=== PATIENT | female | born 1950 | race Caucasian/White ===

== ENCOUNTER → 2017-01-17 | Outpatient (REF) | payer MEDICARE, MEDICAID, OTHER ==
[~2017-01-17] MED LIST: ALBU17IN INH; AMIT24CA7 PO; AMIT25TA PO; ASPI81TA85 PO; CAPT1TAB19 PO; CERACRE TOP; CICL0.776 TOP; CRES10TA32 PO; DOCU100C16 PO; DULO30CA PO; ELIQ2.5T PO; ESOM1CAP5 PO; FISH1000 PO; FLUT11IN INH; FOLI1TAB4 PO; FOLITAB5 PO; JANU100T PO; LANO250T15 PO; LANTINJ4 SC; LASI20TA PO; LEVO25TA5 PO; MELO15TA4 PO; METF10004 PO; MILKSUS PO; MONT10TA2 PO; NIZO2SHA EX; NORCOTAB PO; NYST1POW9 TOP; POTA10SO11 PO; ROPI1TAB PO; SENO8.6T5 PO; TOPR50TA PO; TYLE325T5 PO; VITA-121 PO
== END ==
LOC: M LAB REF 13:10
PROVIDERS: ATTEND Physician Assistant Medical
DX: I25.10 Atherosclerotic heart disease of native coronary artery without angina pectoris (principal); I11.0 Hypertensive heart disease with heart failure; I50.9 Heart failure, unspecified

== ENCOUNTER → 2017-05-08 | Outpatient (REF) | payer MEDICARE, MEDICAID, OTHER ==
[2017-05-08 10:05] LABS: HEMATOCRIT 32.6 % (36.0-47.0); HEMOGLOBIN 10.7 g/dl (12.0-16.0); MEAN CORPUSCULAR HEMOGLOBIN 31.1 pg (27.0-33.0); MEAN CORPUSCULAR HGB CONC 32.8 g/dl (32.0-36.5); MEAN CORPUSCULAR VOLUME 94.8 fl (80.0-96.0); PLATELET COUNT, AUTOMATED 242 10^3/uL (150-450); RED BLOOD COUNT 3.44 10^6/uL (4.00-5.40); RED CELL DISTRIBUTION WIDTH 14.3 % (11.5-14.5); WHITE BLOOD COUNT 8.4 10^3/uL (4.0-10.0)
[2017-05-08 10:32] LABS: BASO % 0.1 % (0.0-1.0); EOS # 0.1 10^3/uL (0.0-0.50); EOS % 0.7 % (0.0-3.0); IMMATURE GRANULOCYTE % 0.5 % (0-3.0); LYMPH # 1.4 10^3/uL (1.5-4.5); LYMPH % 16.4 % (24.0-44.0); MONO # 0.6 10^3/uL (0.0-0.8); MONO % 6.8 % (0.0-5.0); NEUTROPHILS # 6.3 10^3/uL (1.8-7.7); NEUTROPHILS % 75.5 % (36.0-66.0)
[2017-05-08 10:35] LABS: MALB URINE SIEMENS 30.4 MG/L
[2017-05-08 10:41] LABS: ALBUMIN 3.1 GM/DL (3.2-5.2); ALBUMIN/GLOBULIN RATIO 0.79 (1.00-1.93); ALKALINE PHOSPHATASE 136 U/L (45-117); ALT/SGPT 31 U/L (12-78); ANION GAP 7 MEQ/L (8-16); AST/SGOT 23 U/L (7-37); BILIRUBIN,TOTAL 0.3 MG/DL (0.2-1.0); BLOOD UREA NITROGEN 13 MG/DL (7-18); CALCIUM LEVEL 8.7 MG/DL (8.8-10.2); CARBON DIOXIDE LEVEL 27 MEQ/L (21-32); CHLORIDE LEVEL 106 MEQ/L (98-107); CHOLESTEROL LEVEL 170 MG/DL (<200); CHOLESTEROL RISK RATIO 4.722 (<5); GLOMERULAR FILTRATION RATE > 60.0 (>45); GLUCOSE, FASTING 209 MG/DL (70-100); HDL CHOLESTEROL 36 MG/DL (>40); LDL CHOLESTEROL 94.4 MG/DL (<100); NON-HDL-C 134 MG/DL; POTASSIUM SERUM 3.9 MEQ/L (3.5-5.1); SODIUM LEVEL 140 MEQ/L (136-145); TRIGLYCERIDES LEVEL 198 MG/DL (<150)
== END ==
LOC: SKLABADC 09:00
DX: I10 Essential (primary) hypertension (principal); E03.9 Hypothyroidism, unspecified
CPT/HCPCS: 84443

== ENCOUNTER → 2017-06-05 | Outpatient (REF) | payer MEDICARE, MEDICAID, OTHER ==
[2017-06-05 14:00] LABS: APPEARANCE, URINE CLOUDY (CLEAR); BACTERIA, URINE AUTO 3+ (NEGATIVE); BILIRUBIN, URINE AUTO NEGATIVE (NEGATIVE); BLOOD, URINE BLOOD NEGATIVE (NEGATIVE); COLOR, URINE AMBER (YELLOW); GLUCOSE, URINE (UA) AUTO NEGATIVE (NEGATIVE); KETONE, URINE AUTO TRACE mg/dL (NEGATIVE); LEUKOCYTE ESTERASE, URINE AUTO 3+ (NEGATIVE); MUCUS, URINE SMALL (NEGATIVE); NITRITE, URINE AUTO NEGATIVE (NEGATIVE); PROTEIN, URINE AUTO NEGATIVE (NEGATIVE); RBC, URINE AUTO 0 /HPF (0-3); SPECIFIC GRAVITY URINE AUTO 1.023 (1.002-1.035); SQUAMOUS EPITHELIAL CELL UR AU 2 /HPF (0-6); WBC, URINE AUTO 147 /HPF (0-3)
== END ==
LOC: SKLABADC 13:06
DX: C57.8 Malignant neoplasm of overlapping sites of female genital organs (principal); Z79.899 Other long term (current) drug therapy
CPT/HCPCS: 81001

== ENCOUNTER → 2017-06-10 | Outpatient (REF) | payer MEDICARE, MEDICAID, OTHER ==
[2017-06-10 10:15] LABS: BASO % 0.2 % (0.0-1.0); EOS # 0.1 10^3/uL (0.0-0.50); EOS % 0.7 % (0.0-3.0); HEMATOCRIT 28.1 % (36.0-47.0); HEMOGLOBIN 8.9 g/dl (12.0-15.5); IMMATURE GRANULOCYTE % 0.4 % (0-3.0); LYMPH # 1.3 10^3/uL (1.5-4.5); LYMPH % 16.2 % (24.0-44.0); MEAN CORPUSCULAR HEMOGLOBIN 30.2 pg (27.0-33.0); MEAN CORPUSCULAR HGB CONC 31.7 g/dl (32.0-36.5); MEAN CORPUSCULAR VOLUME 95.3 fl (80.0-96.0); MONO # 0.5 10^3/uL (0.0-0.8); MONO % 6.3 % (0.0-5.0); NEUTROPHILS # 6.2 10^3/uL (1.8-7.7); NEUTROPHILS % 76.2 % (36.0-66.0); PLATELET COUNT, AUTOMATED 275 10^3/uL (150-450); RED BLOOD COUNT 2.95 10^6/uL (4.00-5.40); RED CELL DISTRIBUTION WIDTH 15.2 % (11.5-14.5); WHITE BLOOD COUNT 8.2 10^3/uL (4.0-10.0)
== END ==
LOC: SKLABADC 08:56
DX: C57.8 Malignant neoplasm of overlapping sites of female genital organs (principal)
CPT/HCPCS: 36415

== ENCOUNTER → 2017-06-20 | Outpatient (REF) | payer MEDICARE, MEDICAID, OTHER ==
[2017-06-20 11:11] LABS: APPEARANCE, URINE CLEAR (CLEAR); BACTERIA, URINE AUTO NEGATIVE (NEGATIVE); BILIRUBIN, URINE AUTO NEGATIVE (NEGATIVE); BLOOD, URINE BLOOD NEGATIVE (NEGATIVE); COLOR, URINE YELLOW (YELLOW); GLUCOSE, URINE (UA) AUTO NEGATIVE (NEGATIVE); KETONE, URINE AUTO NEGATIVE (NEGATIVE); LEUKOCYTE ESTERASE, URINE AUTO NEGATIVE (NEGATIVE); MUCUS, URINE SMALL (NEGATIVE); NITRITE, URINE AUTO NEGATIVE (NEGATIVE); PROTEIN, URINE AUTO NEGATIVE (NEGATIVE); RBC, URINE AUTO 1 /HPF (0-3); SPECIFIC GRAVITY URINE AUTO 1.016 (1.002-1.035); SQUAMOUS EPITHELIAL CELL UR AU 1 /HPF (0-6); UROBILINOGEN, URINE AUTO 0.2 mg/dL (0.0-2.0); WBC, URINE AUTO 0 /HPF (0-3)
== END ==
LOC: SKLABADC 10:34
DX: C57.8 Malignant neoplasm of overlapping sites of female genital organs (principal)
CPT/HCPCS: 81001

== ENCOUNTER → 2017-06-24 | Outpatient (REF) | payer MEDICARE, MEDICAID, OTHER ==
[2017-06-24 10:36] LABS: BASO % 0.2 % (0.0-1.0); EOS # 0.1 10^3/uL (0.0-0.50); EOS % 1.3 % (0.0-3.0); HEMATOCRIT 29.9 % (36.0-47.0); HEMOGLOBIN 9.3 g/dl (12.0-15.5); IMMATURE GRANULOCYTE % 0.4 % (0-3.0); LYMPH # 2.6 10^3/uL (1.5-4.5); LYMPH % 27.6 % (24.0-44.0); MEAN CORPUSCULAR HGB CONC 31.1 g/dl (32.0-36.5); MEAN CORPUSCULAR VOLUME 93.1 fl (80.0-96.0); MONO # 0.7 10^3/uL (0.0-0.8); MONO % 7.5 % (0.0-5.0); NEUTROPHILS # 5.9 10^3/uL (1.8-7.7); PLATELET COUNT, AUTOMATED 345 10^3/uL (150-450); RED BLOOD COUNT 3.21 10^6/uL (4.00-5.40); RED CELL DISTRIBUTION WIDTH 15.2 % (11.5-14.5); WHITE BLOOD COUNT 9.3 10^3/uL (4.0-10.0)
== END ==
LOC: SKLABADC 08:12
DX: C57.8 Malignant neoplasm of overlapping sites of female genital organs (principal)
CPT/HCPCS: 85025

== ENCOUNTER → 2017-07-01 | Outpatient (REF) | payer MEDICARE, MEDICAID, OTHER ==
[2017-07-01 10:24] LABS: BASO % 0.2 % (0.0-1.0); EOS # 0.1 10^3/uL (0.0-0.50); HEMATOCRIT 30.6 % (36.0-47.0); HEMOGLOBIN 9.8 g/dl (12.0-15.5); IMMATURE GRANULOCYTE % 0.4 % (0-3.0); LYMPH # 1.6 10^3/uL (1.5-4.5); LYMPH % 16.9 % (24.0-44.0); MEAN CORPUSCULAR HEMOGLOBIN 28.9 pg (27.0-33.0); MEAN CORPUSCULAR VOLUME 90.3 fl (80.0-96.0); MONO # 0.7 10^3/uL (0.0-0.8); MONO % 7.6 % (0.0-5.0); NEUTROPHILS # 6.8 10^3/uL (1.8-7.7); NEUTROPHILS % 73.9 % (36.0-66.0); PLATELET COUNT, AUTOMATED 306 10^3/uL (150-450); RED BLOOD COUNT 3.39 10^6/uL (4.00-5.40); RED CELL DISTRIBUTION WIDTH 15.5 % (11.5-14.5); WHITE BLOOD COUNT 9.2 10^3/uL (4.0-10.0)
== END ==
LOC: SKLABADC 08:52
DX: C57.8 Malignant neoplasm of overlapping sites of female genital organs (principal)
CPT/HCPCS: 85025

== ENCOUNTER → 2017-07-08 | Outpatient (REF) | payer MEDICARE, MEDICAID, OTHER ==
[2017-07-08 11:26] LABS: HEMATOCRIT 30.7 % (36.0-47.0); HEMOGLOBIN 9.8 g/dl (12.0-15.5); MEAN CORPUSCULAR HEMOGLOBIN 28.3 pg (27.0-33.0); MEAN CORPUSCULAR HGB CONC 31.9 g/dl (32.0-36.5); MEAN CORPUSCULAR VOLUME 88.7 fl (80.0-96.0); PLATELET COUNT, AUTOMATED 281 10^3/uL (150-450); RED BLOOD COUNT 3.46 10^6/uL (4.00-5.40); RED CELL DISTRIBUTION WIDTH 15.8 % (11.5-14.5); WHITE BLOOD COUNT 9.8 10^3/uL (4.0-10.0)
[2017-07-08 12:33] LABS: ALBUMIN 3.2 GM/DL (3.2-5.2); ALBUMIN/GLOBULIN RATIO 0.94 (1.00-1.93); ALKALINE PHOSPHATASE 164 U/L (45-117); ALT/SGPT 27 U/L (12-78); ANION GAP 7 MEQ/L (8-16); AST/SGOT 14 U/L (7-37); BILIRUBIN,TOTAL 0.3 MG/DL (0.2-1.0); BLOOD UREA NITROGEN 15 MG/DL (7-18); CALCIUM LEVEL 8.8 MG/DL (8.8-10.2); CARBON DIOXIDE LEVEL 27 MEQ/L (21-32); CHLORIDE LEVEL 106 MEQ/L (98-107); CHOLESTEROL LEVEL 131 MG/DL (<200); CHOLESTEROL RISK RATIO 4.517 (<5); CPK CREATINE PHOSPHOKINASE 39 U/L (26-192); CREATININE FOR GFR 0.63 MG/DL (0.55-1.30); DIGOXIN LEVEL 0.2 NG/ML (0.5-2.0); GLOMERULAR FILTRATION RATE > 60.0 (>45); GLUCOSE, FASTING 201 MG/DL (70-100); HDL CHOLESTEROL 29 MG/DL (>40); LDL CHOLESTEROL 73.8 MG/DL (<100); NON-HDL-C 102 MG/DL; POTASSIUM SERUM 4.7 MEQ/L (3.5-5.1); SODIUM LEVEL 140 MEQ/L (136-145); TOTAL PROTEIN 6.6 GM/DL (6.4-8.2); TRIGLYCERIDES LEVEL 141 MG/DL (<150)
== END ==
LOC: SKLABADC 10:52
DX: I50.22 Chronic systolic (congestive) heart failure (principal); I48.0 Paroxysmal atrial fibrillation; R06.02 Shortness of breath; E66.01 Morbid (severe) obesity due to excess calories; I12.0 Hypertensive chronic kidney disease with stage 5 chronic kidney disease or end stage renal disease; E78.5 Hyperlipidemia, unspecified
CPT/HCPCS: 82550

== ENCOUNTER → 2017-07-22 | Outpatient (REF) | payer MEDICARE, MEDICAID, OTHER ==
[2017-07-22 10:30] LABS: BASO % 0.2 % (0.0-1.0); EOS # 0.1 10^3/uL (0.0-0.50); EOS % 1.1 % (0.0-3.0); HEMATOCRIT 30.6 % (36.0-47.0); HEMOGLOBIN 9.4 g/dl (12.0-15.5); IMMATURE GRANULOCYTE # 0.1 10^3/uL (0-0); IMMATURE GRANULOCYTE % 0.8 % (0-3.0); LYMPH # 1.4 10^3/uL (1.5-4.5); LYMPH % 13.7 % (24.0-44.0); MEAN CORPUSCULAR HEMOGLOBIN 27.2 pg (27.0-33.0); MEAN CORPUSCULAR HGB CONC 30.7 g/dl (32.0-36.5); MEAN CORPUSCULAR VOLUME 88.7 fl (80.0-96.0); MONO # 0.6 10^3/uL (0.0-0.8); MONO % 5.6 % (0.0-5.0); NEUTROPHILS # 7.9 10^3/uL (1.8-7.7); NEUTROPHILS % 78.6 % (36.0-66.0); PLATELET COUNT, AUTOMATED 311 10^3/uL (150-450); RED BLOOD COUNT 3.45 10^6/uL (4.00-5.40); RED CELL DISTRIBUTION WIDTH 15.8 % (11.5-14.5)
[2017-07-22 10:53] LABS: ALBUMIN 2.8 GM/DL (3.2-5.2); ALBUMIN/GLOBULIN RATIO 0.78 (1.00-1.93); ALKALINE PHOSPHATASE 165 U/L (45-117); ALT/SGPT 24 U/L (12-78); ANION GAP 7 MEQ/L (8-16); AST/SGOT 11 U/L (7-37); BILIRUBIN,TOTAL 0.2 MG/DL (0.2-1.0); BLOOD UREA NITROGEN 11 MG/DL (7-18); CALCIUM LEVEL 8.8 MG/DL (8.8-10.2); CARBON DIOXIDE LEVEL 30 MEQ/L (21-32); CHLORIDE LEVEL 103 MEQ/L (98-107); CREATININE FOR GFR 0.56 MG/DL (0.55-1.30); GLOMERULAR FILTRATION RATE > 60.0 (>45); GLUCOSE, FASTING 286 MG/DL (70-100); POTASSIUM SERUM 4.8 MEQ/L (3.5-5.1); SODIUM LEVEL 140 MEQ/L (136-145); TOTAL PROTEIN 6.4 GM/DL (6.4-8.2)
== END ==
LOC: SKLABADC 09:18
DX: D64.9 Anemia, unspecified (principal); I10 Essential (primary) hypertension

== ENCOUNTER → 2017-07-22 | Outpatient (REF) | payer MEDICARE, MEDICAID, OTHER ==
[2017-07-22 10:29] LABS: BASO % 0.1 % (0.0-1.0); EOS # 0.1 10^3/uL (0.0-0.50); EOS % 1.4 % (0.0-3.0); HEMATOCRIT 30.7 % (36.0-47.0); HEMOGLOBIN 9.5 g/dl (12.0-15.5); IMMATURE GRANULOCYTE % 0.6 % (0-3.0); LYMPH # 1.4 10^3/uL (1.5-4.5); LYMPH % 13.6 % (24.0-44.0); MEAN CORPUSCULAR HEMOGLOBIN 27.4 pg (27.0-33.0); MEAN CORPUSCULAR HGB CONC 30.9 g/dl (32.0-36.5); MEAN CORPUSCULAR VOLUME 88.5 fl (80.0-96.0); MONO # 0.5 10^3/uL (0.0-0.8); MONO % 4.9 % (0.0-5.0); NEUTROPHILS # 7.9 10^3/uL (1.8-7.7); NEUTROPHILS % 79.4 % (36.0-66.0); PLATELET COUNT, AUTOMATED 313 10^3/uL (150-450); RED BLOOD COUNT 3.47 10^6/uL (4.00-5.40); RED CELL DISTRIBUTION WIDTH 15.6 % (11.5-14.5)
[2017-07-22 10:55] LABS: FERRITIN 36 NG/ML (8-252); IRON (FE) 24 UG/DL (50-170); PERCENT SATURATION 7.2 % (13.2-45.0); TOTAL IRON BINDING CAPACITY 333 UG/DL (250-450)
== END ==
LOC: SKLABADC 08:52
DX: C57.8 Malignant neoplasm of overlapping sites of female genital organs (principal); D64.9 Anemia, unspecified; I10 Essential (primary) hypertension
CPT/HCPCS: 83550

== ENCOUNTER → 2017-07-29 | Outpatient (REF) | payer MEDICARE, MEDICAID, OTHER ==
[2017-07-29 11:20] LABS: BASO % 0.2 % (0.0-1.0); EOS # 0.1 10^3/uL (0.0-0.50); EOS % 1.2 % (0.0-3.0); HEMOGLOBIN 10.3 g/dl (12.0-15.5); IMMATURE GRANULOCYTE # 0.1 10^3/uL (0-0); IMMATURE GRANULOCYTE % 0.5 % (0-3.0); LYMPH # 1.9 10^3/uL (1.5-4.5); LYMPH % 17.7 % (24.0-44.0); MEAN CORPUSCULAR HGB CONC 31.2 g/dl (32.0-36.5); MEAN CORPUSCULAR VOLUME 86.4 fl (80.0-96.0); MONO # 0.9 10^3/uL (0.0-0.8); MONO % 8.5 % (0.0-5.0); NEUTROPHILS # 7.7 10^3/uL (1.8-7.7); NEUTROPHILS % 71.9 % (36.0-66.0); PLATELET COUNT, AUTOMATED 319 10^3/uL (150-450); RED BLOOD COUNT 3.82 10^6/uL (4.00-5.40); RED CELL DISTRIBUTION WIDTH 15.8 % (11.5-14.5); WHITE BLOOD COUNT 10.6 10^3/uL (4.0-10.0)
[2017-07-29 12:26] LABS: ALBUMIN 3.1 GM/DL (3.2-5.2); ALBUMIN/GLOBULIN RATIO 0.82 (1.00-1.93); ALKALINE PHOSPHATASE 151 U/L (45-117); ALT/SGPT 25 U/L (12-78); ANION GAP 10 MEQ/L (8-16); AST/SGOT 12 U/L (7-37); BILIRUBIN,TOTAL 0.4 MG/DL (0.2-1.0); BLOOD UREA NITROGEN 19 MG/DL (7-18); CALCIUM LEVEL 9.3 MG/DL (8.8-10.2); CARBON DIOXIDE LEVEL 30 MEQ/L (21-32); CHLORIDE LEVEL 101 MEQ/L (98-107); CREATININE FOR GFR 0.83 MG/DL (0.55-1.30); GLOMERULAR FILTRATION RATE > 60.0 (>45); GLUCOSE, FASTING 239 MG/DL (70-100); POTASSIUM SERUM 4.3 MEQ/L (3.5-5.1); SODIUM LEVEL 141 MEQ/L (136-145); TOTAL PROTEIN 6.9 GM/DL (6.4-8.2)
== END ==
LOC: SKLABADC 10:24
DX: D64.9 Anemia, unspecified (principal); I10 Essential (primary) hypertension
CPT/HCPCS: 80053

== ENCOUNTER → 2017-08-12 | Outpatient (REF) | payer MEDICARE, MEDICAID, OTHER ==
[2017-08-12 09:46] LABS: MEAN CORPUSCULAR HEMOGLOBIN 27.7 pg (27.0-33.0); MEAN CORPUSCULAR HGB CONC 31.4 g/dl (32.0-36.5); MEAN CORPUSCULAR VOLUME 88.2 fl (80.0-96.0); PLATELET COUNT, AUTOMATED 292 10^3/uL (150-450); RED BLOOD COUNT 3.97 10^6/uL (4.00-5.40); RED CELL DISTRIBUTION WIDTH 17.6 % (11.5-14.5); WHITE BLOOD COUNT 9.5 10^3/uL (4.0-10.0)
== END ==
LOC: SKLABADC 09:05
DX: D50.0 Iron deficiency anemia secondary to blood loss (chronic) (principal)
CPT/HCPCS: 85027

== ENCOUNTER → 2018-01-26 | Outpatient (REF) | payer MEDICARE, MEDICAID, OTHER ==
[~2018-01-26] MED LIST changes: -FOLI1TAB4 PO; +FOLI1TAB5 PO; +MELO15TA28 PO; -MELO15TA4 PO; +MILK12002 PO; -MILKSUS PO; -TOPR50TA PO; +TOPR50TA23 PO
[2018-01-26 11:46] LABS: BASO % 0.3 % (0.0-1.0); EOS # 0.2 10^3/uL (0.0-0.50); EOS % 1.8 % (0.0-3.0); HEMATOCRIT 40.1 % (36.0-47.0); HEMOGLOBIN 13.1 g/dl (12.0-15.5); LYMPH # 1.5 10^3/uL (1.5-4.5); LYMPH % 16.8 % (24.0-44.0); MEAN CORPUSCULAR HEMOGLOBIN 30.3 pg (27.0-33.0); MEAN CORPUSCULAR HGB CONC 32.7 g/dl (32.0-36.5); MEAN CORPUSCULAR VOLUME 92.6 fl (80.0-96.0); MONO # 0.7 10^3/uL (0.0-0.8); NEUTROPHILS # 6.5 10^3/uL (1.8-7.7); NEUTROPHILS % 72.7 % (36.0-66.0); PLATELET COUNT, AUTOMATED 268 10^3/uL (150-450); RED BLOOD COUNT 4.33 10^6/uL (4.00-5.40); WHITE BLOOD COUNT 8.9 10^3/uL (4.0-10.0)
[2018-01-26 12:17] LABS: ALBUMIN 3.3 GM/DL (3.2-5.2); ALT/SGPT 28 U/L (12-78); BILIRUBIN,TOTAL 0.3 MG/DL (0.2-1.0); BLOOD UREA NITROGEN 23 MG/DL (7-18); CALCIUM LEVEL 8.8 MG/DL (8.8-10.2); CARBON DIOXIDE LEVEL 31 MEQ/L (21-32); CHLORIDE LEVEL 105 MEQ/L (98-107); CHOLESTEROL LEVEL 186 MG/DL (<200); CHOLESTEROL RISK RATIO 5.314 (<5); CREATININE FOR GFR 0.55 MG/DL (0.55-1.30); GLOMERULAR FILTRATION RATE > 60.0 (>45); GLUCOSE, FASTING 135 MG/DL (70-100); HDL CHOLESTEROL 35 MG/DL (>40); LDL CHOLESTEROL 123 MG/DL (<100); NON-HDL-C 151 MG/DL; POTASSIUM SERUM 3.9 MEQ/L (3.5-5.1); SODIUM LEVEL 143 MEQ/L (136-145); TOTAL 25(OH) VITAMIN D 31.7 NG/ML (30.0-100.0); TOTAL PROTEIN 6.9 GM/DL (6.4-8.2); TRIGLYCERIDES LEVEL 141 MG/DL (<150)
[2018-01-26 12:29] LABS: CREATININE, URINE 87.9 MG/DL; MALB URINE SIEMENS 10.9 MG/L; MAU/CREAT RATIO 12.4 MCG/MG (0.0-30.0)
== END ==
LOC: SKLABADC 09:19
PROVIDERS: ATTEND Physician Assistant Medical
DX: E55.9 Vitamin D deficiency, unspecified (principal); I10 Essential (primary) hypertension; E03.9 Hypothyroidism, unspecified; E11.8 Type 2 diabetes mellitus with unspecified complications

== ENCOUNTER → 2018-07-27 | Outpatient (REF) | payer MEDICARE, MEDICAID, OTHER ==
[~2018-07-27] MED LIST changes: +CRES10TA PO; -CRES10TA32 PO; -DULO30CA PO; +DULO30CA9 PO; +FOLI1TAB11 PO; -FOLI1TAB5 PO; +HYDR-3715 PO; -LASI20TA PO; +LASI20TA3 PO; +MILK120011 PO; -MILK12002 PO; -NORCOTAB PO; +TOPR50TA PO; -TOPR50TA23 PO
== END ==
LOC: M LAB REF 19:08
PROVIDERS: ATTEND Physician Assistant
DX: N39.0 Urinary tract infection, site not specified (principal)

== ENCOUNTER → 2018-09-02 | Outpatient (REF) | payer MEDICARE, MEDICAID, OTHER ==
[2018-09-02 11:14] LABS: HEMOGLOBIN 13.8 g/dl (12.0-15.5); MEAN CORPUSCULAR HEMOGLOBIN 29.9 pg (27.0-33.0); MEAN CORPUSCULAR HGB CONC 32.9 g/dl (32.0-36.5); MEAN CORPUSCULAR VOLUME 90.9 fl (80.0-96.0); PLATELET COUNT, AUTOMATED 325 10^3/uL (150-450); RED BLOOD COUNT 4.62 10^6/uL (4.00-5.40)
[2018-09-02 11:45] LABS: ALBUMIN 3.4 GM/DL (3.2-5.2); ALT/SGPT 30 U/L (12-78); BILIRUBIN,TOTAL 0.3 MG/DL (0.2-1.0); BLOOD UREA NITROGEN 15 MG/DL (7-18); CALCIUM LEVEL 9.6 MG/DL (8.8-10.2); CARBON DIOXIDE LEVEL 31 MEQ/L (21-32); CHLORIDE LEVEL 105 MEQ/L (98-107); CREATININE FOR GFR 0.77 MG/DL (0.55-1.30); FERRITIN 138 NG/ML (8-252); GLOMERULAR FILTRATION RATE > 60.0 (>45); GLUCOSE, FASTING 177 MG/DL (70-100); IRON (FE) 43 UG/DL (50-170); PERCENT SATURATION 11.7 % (13.2-45.0); POTASSIUM SERUM 4.4 MEQ/L (3.5-5.1); SODIUM LEVEL 141 MEQ/L (136-145); TOTAL IRON BINDING CAPACITY 366 UG/DL (250-450); TOTAL PROTEIN 7.1 GM/DL (6.4-8.2)
[2018-09-02 11:48] LABS: VITAMIN B12 LEVEL 437 PG/ML (247-911)
== END ==
LOC: SKLABADC 10:29
PROVIDERS: ATTEND Physician Assistant Medical
DX: D64.9 Anemia, unspecified (principal)

== ENCOUNTER 2018-11-01 16:45 | Inpatient (IN) | payer MEDICARE, MEDICAID ==
[~2018-11-01] VITALS: Ht 152.4 cm; Wt 141.8 kg
[2018-11-01] MEDS ORDERED: methylPREDNISolone INJ 125 MG/2 ML VIAL (J2930) IV ONE (17:00)
[2018-11-01] MEDS ORDERED: DIGOXIN 0.125 MG TAB PO ONE (17:00)
[2018-11-01] MEDS ORDERED: FERR32TA PO (17:18)
[2018-11-01] MEDS ORDERED: CHOL100029 PO (17:18)
[2018-11-01] MEDS ORDERED: DIGO0.12 PO (17:18)
[2018-11-01] MEDS ORDERED: LISI-542 PO (17:18)
[2018-11-01] MEDS ORDERED: OMEP40CA2 PO (17:18)
[2018-11-01] MEDS ORDERED: POTA20TA6 PO (17:18)
[2018-11-01] MEDS: IPRATROPIUM 0.5MG/ALBUTEROL 2.5MG INH SOL UD 3ML (DUONEB)(J7620) NEB PRN (17:18)
[2018-11-01] MEDS ORDERED: LASI40TA9 PO (17:18)
[2018-11-01] MEDS ORDERED: CETI10CH PO (17:18)
[2018-11-01] MEDS ORDERED: LANTINJ4 SC ×2 (17:18→20:01)
[2018-11-01] MEDS ORDERED: ALBU83IN NEB (17:18)
[2018-11-01] MEDS ORDERED: TRUL0.5I SC ×2 (17:18)
[2018-11-01] MEDS ORDERED: MARIJUANA PO (17:18)
[2018-11-01] MEDS ORDERED: SPIR-10 PO (17:18)
[2018-11-01] MEDS ORDERED: ACET250T2 PO (17:18)
[2018-11-01] MEDS ORDERED: TOPR50TA PO (17:18)
[2018-11-01] MEDS ORDERED: ATOR80TA59 PO (17:18)
[2018-11-01] MEDS ORDERED: HUMA100I5 SC (17:18)
[2018-11-01] MEDS ORDERED: MAGN400T PO (17:18)
[2018-11-01 17:52] LABS: BASO % 0.2 % (0.0-1.0); EOS # 0.1 10^3/uL (0.0-0.5); EOS % 1.1 % (0.0-3.0); HEMATOCRIT 37.1 % (36.0-47.0); HEMOGLOBIN 11.9 g/dl (12.0-15.5); LYMPH # 1.1 10^3/uL (1.5-5.0); LYMPH % 13.4 % (24.0-44.0); MEAN CORPUSCULAR HEMOGLOBIN 30.4 pg (27.0-33.0); MEAN CORPUSCULAR HGB CONC 32.1 g/dl (32.0-36.5); MEAN CORPUSCULAR VOLUME 94.6 fl (80.0-96.0); MONO # 0.5 10^3/uL (0.0-0.8); MONO % 5.9 % (0.0-5.0); NEUTROPHILS # 6.7 10^3/uL (1.5-8.5); NEUTROPHILS % 79.2 % (36.0-66.0); PLATELET COUNT, AUTOMATED 265 10^3/uL (150-450); RED BLOOD COUNT 3.92 10^6/uL (4.00-5.40); WHITE BLOOD COUNT 8.4 10^3/uL (4.0-10.0)
[2018-11-01 18:06] LABS: INR 1.15; PROTHROMBIN TIME 14.4 SECONDS (11.8-14.0)
[2018-11-01 18:22] LABS: BLOOD UREA NITROGEN 6 MG/DL (7-18); CREATININE FOR GFR 0.51 MG/DL (0.55-1.30); GLUCOSE, FASTING 174 MG/DL (70-100)
[2018-11-01 18:23] LABS: ALBUMIN 2.7 GM/DL (3.2-5.2); ALT/SGPT 44 U/L (12-78); BILIRUBIN,DIRECT 0.1 MG/DL (0.0-0.2); BILIRUBIN,TOTAL 0.5 MG/DL (0.2-1.0); CALCIUM LEVEL 8.7 MG/DL (8.8-10.2); CARBON DIOXIDE LEVEL 29 MEQ/L (21-32); CHLORIDE LEVEL 106 MEQ/L (98-107); CPK CREATINE PHOSPHOKINASE 34 U/L (26-192); DIGOXIN LEVEL 0.2 NG/ML (0.5-2.0); GLOMERULAR FILTRATION RATE > 60.0 (>45); MB/CK RELATIVE INDEX 2.94 (< OR =4); NT-PRO BNP 743 PG/ML (<125); POTASSIUM SERUM 4.3 MEQ/L (3.5-5.1); SODIUM LEVEL 142 MEQ/L (136-145); TOTAL PROTEIN 6.2 GM/DL (6.4-8.2); TROPONIN I 0.02 NG/ML (< 0.10)
[2018-11-01] MEDS ORDERED: FUROSEMIDE 100 MG/10 ML VIAL (J1940) IV ONE (18:30)
[2018-11-01] MEDS ORDERED: cefTRIAXone SOD 2 GM in D5W MINI-BAG PLUS 50 ML IV ONE (18:30)
--- NOTE | 2018-11-01 18:39 | ECGEPIP ---
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
[2018-11-01] MEDS ORDERED: MAALOX 30 ML SUSP *UDC PO PRN (19:15)
[2018-11-01] MEDS ORDERED: D31000CA4 PO (19:49)
[2018-11-01] MEDS ORDERED: ALL10TAB29 PO (19:49)
[2018-11-01] MEDS ORDERED: ACET-897 PO (19:49)
[2018-11-01] MEDS: FLUTICASONE HFA 110 MCG 12 GM INHALER (FLOVENT) INH SCH (20:00)
[2018-11-01] MEDS ORDERED: FISH1000 PO (20:01)
[2018-11-01] MEDS ORDERED: TORS10TA3 PO (20:01)
[2018-11-01] MEDS ORDERED: FLUT11IN INH (20:01)
[2018-11-01] MEDS ORDERED: LEVO50TA5 PO (20:01)
[2018-11-01] MEDS ORDERED: NYST1POW9 TOP (20:03)
[2018-11-01] MEDS ORDERED: IPRA0.00 INH (20:03)
[2018-11-01] MEDS ORDERED: ISOVUE-370 76% 100ML VIAL (Q9967) As Ordered ONE (20:08)
--- NOTE | 2018-11-01 20:13 | HPEPDOC ---
[facility] Medical History & Physical Date of Admission Nov 01, 2018 Date of Service: Nov 01, 2018 History and Physical CHIEF COMPLAINT: [SOB ] HISTORY OF PRESENT ILLNESS: This is a 67 yo female with pmhx of afib, chf unknown ef , copd and the others below who presented to the ed wit sob for 1 week. Patient also noted that her right leg has been more swollen than the left with mild pain, but no erythema. She said today she was wheezing and has been using oxygen more frequently than before. She uses 2 L of nc at home at night. She stated that she has been having chills, but no fever, no chest pain or palpitations. She denied nausea vomiting or diarrhea. She denied sick contact or recent travel. ] PAST MEDICAL HISTORY: 1. [copd on home o2 ]. 2. [htn ]. 3. [hld ]. 4. hypothyroidism 5. afib on eliquis 6. chf unknown ef 7. dm2 8., hld 9. hx of endometrial cancer in remission for 2 yrs1 10. OA PAST SURGICAL HISTORY: 1. [hysterectomy - due to endometrial ca ]. 2. [stomach stapling ]. 3. [abd hernia repair ]. 4. d and c 5. 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 HOME MEDICATIONS: Please see below. LABORATORY DATA: See below. IMAGING: MICROBIOLOGY: Please see below. ROS - all 10 point review of system is negative except for whats listed in HPI Physical exam Gen: NAD, morbidly obese HEENT: normocephalic, atraumatic, no discharge from ears or nose, no oropharyngeal erythema or exudate, neck is supple, no lymphadenopathy, trachea midline CVS: RRR, normal S1n S2, no murmur, rubs, or gallops, + right leg edema, no jvd Resp: poor air movement, no rhonchi, wheezes or crackles Abd : soft, some tenderness over distended areas of abd hernia, normal bowel sounds, no rebound tenderness or guarding MSK: no swelling, full range of motion, strength 5/5 Neuro: AOAx3, no confusion, no focal deficit Psych: normal mood and affect, good judgment ASSESSMENT and plan Copd exacerbation - possible right lower lobe infiltrate c/w levaquin oxygen as needed f/u sputum gs and cx f/u resp panel duoneb q4h prn c/w po steroids 40mg q12h CHF f/u echo lasix - tomorrow , after contrast study and mild hydration DM2 c/w insulin hold metformin f/u hba1c htn//hld c/w home meds fu lipid panel right leg swelling f/u venous doppler afib c/u anticoag - eliquis c/w bb dvt ppx - on eliquis full code, from home, no svc Vital Signs Vital Signs Date Time Temp Pulse Resp B/P (MAP) Pulse Ox O2 Delivery O2 Flow Rate FiO2 11/01/18 17:49 134 11/01/18 16:56 97.7 24 116/79 (91) 95 Nasal Cannula 6.0 Laboratory Data Labs 24H Laboratory Tests 2 11/01/18 17:40: Immature Granulocyte % (Auto) 0.2, White Blood Count 8.4, Red Blood Count 3.92L, Hemoglobin 11.9L, Hematocrit 37.1, Mean Corpuscular Volume 94.6, Mean Corpuscular Hemoglobin 30.4, Mean Corpuscular Hemoglobin Concent 32.1, Red Cell Distribution Width 14.3, Platelet Count 265, Neutrophils (%) (Auto) 79.2H, Lymphocytes (%) (Auto) 13.4L, Monocytes (%) (Auto) 5.9H, Eosinophils (%) (Auto) 1.1, Basophils (%) (Auto) 0.2, Neutrophils # (Auto) 6.7, Lymphocytes # (Auto) 1.1L, Monocytes # (Auto) 0.5, Eosinophils # (Auto) 0.1, Basophils # (Auto) 0.0, Nucleated Red Blood Cells % (auto) 0.0, Prothrombin Time 14.4H, Prothromb Time International Ratio 1.15, Anion Gap 7L, Glomerular Filtration Rate > 60.0, Lactic Acid Level 2.7*H, Calcium Level 8.7L, Aspartate Amino Transf (AST/SGOT) 24, Alanine Aminotransferase (ALT/SGPT) 44, Alkaline Phosphatase 167H, Total Bilirubin 0.5, Direct Bilirubin 0.1, Total Creatine Kinase 34, Creatine Kinase MB 1.0, Creatine Kinase MB Relative Index 2.94, Troponin I 0.02, XW-Lnv-[id number]-Type Natriuretic Peptide 743H, Total Protein 6.2L, Albumin 2.7L, Albumin/Globulin Ratio 0.77L, Thyroid Stimulating Hormone (TSH) 1.020, Digoxin Level 0.2L 11/01/18 17:46: POC pH (Misc Panel) 7.367, POC Base Excess (Misc Panel) 3.0, POC Saturated Percent O2 (Misc) 95, POC pO2 (Misc Panel) 79.0L, POC pCO2 (Misc Panel) 49.5H, POC HCO3 (Misc Panel) 28.4H, POC Total CO2 (Misc Panel) 30.0H CBC/BMP Laboratory Tests 11/01/18 17:40 Red Blood Count 3.92 L, Mean Corpuscular Volume 94.6, Mean Corpuscular Hemoglobin 30.4, Mean Corpuscular Hemoglobin Concent 32.1, Red Cell Distribution Width 14.3, Neutrophils (%) (Auto) 79.2 H, Lymphocytes (%) (Auto) 13.4 L, Monocytes (%) (Auto) 5.9 H, Eosinophils (%) (Auto) 1.1, Basophils (%) (Auto) 0. 2, Neutrophils # (Auto) 6.7, Lymphocytes # (Auto) 1.1 L, Monocytes # (Auto) 0.5, Eosinophils # (Auto) 0.1, Basophils # (Auto) 0.0 Microbiology Microbiology 11/01/18 Blood Culture, Received Pending 11/01/18 Blood Culture, Received Pending 11/01/18 Respiratory Virus Panel (PCR) (QUINN) - Final, Complete Home Medications Scheduled Acetazolamide (Acetazolamide) 250 Mg Tablet, 1 TAB PO BID Amitriptyline HCl (Amitriptyline HCl) 25 Mg Tab, 25 MG PO DAILY Apixaban (Eliquis) 2.5 Mg Tab, 2.5 MG PO BID Aspirin (Aspir 81) 81 Mg Tab, 81 MG PO DAILY Atorvastatin Calcium (Atorvastatin Calcium) 80 Mg Tablet, 1 TAB PO DAILY Captopril (Captopril) 3.125 Mg Quartertab, 3.125 MG PO TID Cetirizine HCl (Cetirizine HCl) 10 Mg Tab.chew, 1 TAB PO DAILY for allergy symptoms Cholecalciferol (Vitamin D-3) 1,000 Unit Tab, 1,000 UNIT PO DAILY Digoxin (Digoxin) 125 Mcg Tablet, 1 TAB PO DAILY Docusate Sodium (Docusate Sodium) 100 Mg Cap, 100 MG PO BID Duloxetine Hcl (Duloxetine HCl) 30 Mg Cap, 60 MG PO BID Esomeprazole Magnesium (Esomeprazole Magnesium) 40 Mg Cap, 40 MG PO BID Ferrous Gluconate (Ferrous Gluconate) 324 Mg Tablet, 1 TAB PO BID Fluticasone Propionate (Flovent Hfa 110 MCG) 120 Puff/12 Gm Aero, 2 PUFF INH BID Folic Acid (Folic Acid) 1 Mg Tab, 1 MG PO BID Furosemide (Lasix) 40 Mg Tablet, 40 MG PO BID Insulin Glargine,Hum.rec.anlog (Lantus Solostar) 100 Unit/1 Ml Insuln.pen, 56 UNIT SC BID Levothyroxine Sodium (Levothyroxine Sodium) 25 Mcg Tab, 50 MCG PO DAILY Lisinopril (Lisinopril) 5 Mg Tablet, 1 TAB PO DAILY Magnesium Oxide (Magnesium Oxide) 400 Mg Tablet, 1 TAB PO BID for constipation Metformin HCl (Metformin HCl) 1,000 Mg Tab, 1,000 MG PO BID Metoprolol Succinate (Toprol Xl) 50 Mg Tab.er.24h, 1 TAB PO DAILY Montelukast Sodium (Montelukast Sodium) 10 Mg Tab, 10 MG PO DAILY [place]-3 Fatty Acids/Fish Oil (Fish Oil 1,000 mg Capsule) 1,000 Mg Cap, 1,000 MG PO BID Omeprazole (Omeprazole) 40 Mg Capsule.dr, 1 CAP PO DAILY Potassium Chloride (Potassium Chloride) 20 Meq Tab.er.prt, 1 TAB PO DAILY Ropinirole HCl (Ropinirole HCl) 1 Mg Tab, 1 MG PO BID Spironolactone (Spironolactone) 25 Mg Tablet, 0.5 TAB PO DAILY Vitamin D (Vitamin D3) 1,000 Unit Tablet, 1 TAB PO DAILY [Marijuana] , 2 DROP PO TID [Marijuana] , 1 TAB PO TID Scheduled PRN Acetaminophen (Tylenol) 325 Mg Tab, 650 MG PO Q4HP PRN for MILD PAIN OR FEVER Albuterol Sulf (Albuterol Sulfate) 2.5 Mg/3 Ml Vial.neb, 1 VIAL NEB Q4HP PRN for wheezing Albuterol Sulfate (Ventolin Hfa) 200 Puff/8 Gm Aers, 2 PUFF INH Q4HP PRN for SHORTNESS OF BREATH Ciclopirox (Ciclopirox) 0.77 % Gel, 0.77 % TOP DAILYPRN PRN for DRY SKIN Miscellaneous Medications Dulaglutide (Trulicity) 1.5 Mg/0.5 Ml Pen.injctr, 1.5 MG SC Insulin Lispro (Humalog Kwikpen U-100) 100 Unit/1 Ml Insuln.pen, 100 UNITS SC Allergies Coded Allergies: TAPE (Verified Allergy, Intermediate, rash, 11/01/18) adhesives A-FIB/CHADSVASC A-FIB History Current/History of A-Fib/PAF?: Yes Current PO Anticoag Therapy: Yes Age/Risk Factor Scoring CHADSVASC: CHADSVASC Response (Comments) Value Age Risk Factor Age 65-74 years old 1 Gender Risk Factor Female 1 Hx of CHF Yes 1 Hx of HTN Yes 1 Hx of Stroke/TIA/or VTE No 0 Hx of Diabetes Yes 1 Hx of Vascular Disease No 0 Total 5 Treatment Treatment ordered: Apixaban GREGORY KUMAR MD Nov 01, 2018 20:13
[2018-11-01] MEDS ORDERED: GLUCAGON FOR INJ 1 MG VIAL (J1610) SC PRN (20:30)
[2018-11-01] MEDS ORDERED: DEXTROSE 50% 50 ML SYRINGE IV PRN (20:30)
[2018-11-01] MEDS ORDERED: GLUCOSE 4 GM CHEW TABLET PO PRN (20:30)
--- NOTE | 2018-11-01 20:37 | REPVR ---
PROCEDURE INFORMATION: Exam: CT Chest With Contrast Exam date and time: 11/01/2018 8:22 PM Clinical history: 67 years old, female; Abnormal findings; Abnormal radiologic exam of lung or chest; Additional info: Abnormal cxr TECHNIQUE: Imaging protocol: Computed tomography of the chest with intravenous contrast. 3D rendering: MIP reconstructed images were created and reviewed. Radiation optimization: All CT scans at this facility use at least one of these dose optimization techniques: automated exposure control; mA and/or kV adjustment per patient size (includes targeted exams where dose is matched to clinical indication); or iterative reconstruction. Contrast material: ISOVUE 370; Contrast volume: 75 ml; Contrast route: IV; COMPARISON: CR PORTABLE CHEST X-RAY 11/01/2018 5:07 PM FINDINGS: Lungs: 9 mm ground glass opacity right middle lobe. Patchy airspace opacities in both lower lobes. Findings may represent multifocal pneumonitis. Pleural space: Large focus of pleural-based parenchymal opacification in the lateral aspect of the left lower lobe. Heart: Cardiomegaly. There is moderate atherosclerotic calcification of the coronary arteries. Small pericardial effusion. Aorta: Unremarkable. No aortic aneurysm. Lymph nodes: Unremarkable. No enlarged lymph nodes. Bones/joints: The spine demonstrates moderate degenerative changes. Soft tissues: Unremarkable. Stomach and bowel: Status post gastric bypass surgery. Other findings: Parasitosis. IMPRESSION: 1. 9 mm ground glass opacity right middle lobe. Recommend CT at 6-12 months to confirm persistence of the nodule, then CT at 3 and at 5 years. (Nya et al., Fleischner Society, 2017) 2. Patchy airspace opacities in both lower lobes. Findings may represent multifocal pneumonitis. 3. Large focus of pleural-based parenchymal opacification in the lateral aspect of the left lower lobe. 4. Small pericardial effusion. Electronically signed by: Michael Soliman On 11/01/2018 20:37:36 PM
[2018-11-01] MEDS ORDERED: NYSTATIN 100,000 UNITS/GM TOPICAL PWD 15 GM TOP PRN (20:45)
[2018-11-01] MEDS ORDERED: CETIRIZINE (ZyrTEC) 10 MG TAB PO PRN (20:45)
[2018-11-01] MEDS ORDERED: LEVEMIR (INSULIN DETEMIR) 1 UNITS/0.01ML SC SCH (21:00)
[2018-11-01 22:30] VITALS: BP 120/68
[2018-11-01 23:21] VITALS: BP 135/86
[2018-11-01 23:26] VITALS: BP 110/61
[2018-11-01] MEDS: FERROUS GLUCONATE 324 MG TAB PO SCH (23:41)
[2018-11-01] MEDS: OMEPRAZOLE 20 MG CAP PO SCH (23:42)
[2018-11-01] MEDS: MAGNESIUM OXIDE 400 MG TAB (MAG-OX) PO SCH (23:42)
[2018-11-01] MEDS: FOLIC ACID 1 MG TAB PO SCH (23:44)
[2018-11-01] MEDS: rOPINIRole 1MG TAB PO SCH (23:44)
[2018-11-01] MEDS: VITAMIN D 1,000 INTERNATIONAL UNITS TABLET PO SCH (23:44)
[2018-11-01] MEDS: DOCUSATE SODIUM 100 MG CAP PO SCH (23:44)
[2018-11-01] MEDS: APIXABAN 2.5 MG TAB (ELIQUIS) PO SCH (23:44)
[2018-11-01] MEDS: AcetaZOLAMIDE 250 MG TAB PO SCH (23:44)
[2018-11-01 23:50] VITALS: BP 117/72
[2018-11-01] MEDS: METOPROLOL 5 MG/5 ML VIAL IV SCH (23:52)
[2018-11-02] VITALS (10 sets, daily range): BP systolic 97–134; BP diastolic 56–82
[2018-11-02] MEDS: predniSONE 20 MG TAB PO SCH ×3 (00:05→20:33)
[2018-11-02] MEDS: IPRATROPIUM 0.5MG/ALBUTEROL 2.5MG INH SOL UD 3ML (DUONEB)(J7620) NEB PRN ×2 (00:35→09:35)
[2018-11-02] MEDS: METOPROLOL 5 MG/5 ML VIAL IV SCH ×4 (02:31→23:52)
[2018-11-02 05:54] LABS: HEMATOCRIT 38.5 % (36.0-47.0); HEMOGLOBIN 12.4 g/dl (12.0-15.5); MEAN CORPUSCULAR HGB CONC 32.2 g/dl (32.0-36.5); MEAN CORPUSCULAR VOLUME 93.2 fl (80.0-96.0); PLATELET COUNT, AUTOMATED 284 10^3/uL (150-450); RED BLOOD COUNT 4.13 10^6/uL (4.00-5.40); WHITE BLOOD COUNT 8.5 10^3/uL (4.0-10.0)
[2018-11-02] MEDS: LEVOTHYROXINE 50MCG TABLET (0.05MG) PO SCH (06:18)
[2018-11-02] MEDS: LevoFLOXacin 750 MG TABLET PO SCH (06:18)
[2018-11-02 06:24] LABS: BLOOD UREA NITROGEN 13 MG/DL (7-18); CALCIUM LEVEL 9.3 MG/DL (8.8-10.2); CARBON DIOXIDE LEVEL 29 MEQ/L (21-32); CHLORIDE LEVEL 102 MEQ/L (98-107); CREATININE FOR GFR 0.82 MG/DL (0.55-1.30); GLOMERULAR FILTRATION RATE > 60.0 (>45); GLUCOSE, FASTING 333 MG/DL (70-100); MAGNESIUM LEVEL 1.6 MG/DL (1.8-2.4); POTASSIUM SERUM 4.6 MEQ/L (3.5-5.1); SODIUM LEVEL 139 MEQ/L (136-145)
[2018-11-02] MEDS ORDERED: HumaLOG INSULIN (NovoLOG) PER UNIT SC SCH (07:30)
--- NOTE | 2018-11-02 07:45 | REP ---
PORTABLE CHEST: AP portable view of the chest is performed and compared to prior studies dating back to 09/28/2009. There is cardiomegaly. There is vascular congestion. There are diffuse interstitial infiltrates suggesting interstitial pulmonary edema. There appears to be an alveolar component inferiorly on the right. Thoracic aorta appears ectatic and tortuous. Right central venous catheter is seen, the tip is not well visualized. Electronically Signed by Ciro Puente MD 11/03/2018 09:48 A
[2018-11-02] MEDS: FLUTICASONE HFA 110 MCG 12 GM INHALER (FLOVENT) INH SCH ×3 (08:00→20:38)
[2018-11-02] MEDS: DOCUSATE SODIUM 100 MG CAP PO SCH ×2 (08:21→20:34)
[2018-11-02] MEDS: HumaLOG INSULIN (NovoLOG) PER UNIT SC SCH ×3 (08:21→17:47)
[2018-11-02] MEDS: APIXABAN 2.5 MG TAB (ELIQUIS) PO SCH ×2 (08:22→20:34)
[2018-11-02] MEDS: SPIRONOLACTONE 12.5MG PER 1/2 TABLET PO SCH (08:22)
[2018-11-02] MEDS: MAGNESIUM OXIDE 400 MG TAB (MAG-OX) PO SCH ×2 (08:22→20:34)
[2018-11-02] MEDS: FERROUS GLUCONATE 324 MG TAB PO SCH ×2 (08:22→20:34)
[2018-11-02] MEDS: MONTELUKAST 10 MG TAB PO SCH (08:23)
[2018-11-02] MEDS: FOLIC ACID 1 MG TAB PO SCH ×2 (08:23→20:33)
[2018-11-02] MEDS: METOPROLOL SUCC (TopROL XL) 50MG **XL** TAB PO SCH (08:24)
[2018-11-02] MEDS: AcetaZOLAMIDE 250 MG TAB PO SCH ×2 (08:24→20:34)
[2018-11-02] MEDS: POTASSIUM CHLORIDE 10 MEQ SR TABLET PO SCH (08:24)
[2018-11-02] MEDS: LISINOPRIL 5 MG TAB PO SCH (08:25)
[2018-11-02] MEDS: VITAMIN D 1,000 INTERNATIONAL UNITS TABLET PO SCH ×2 (08:25→20:32)
[2018-11-02] MEDS: rOPINIRole 1MG TAB PO SCH ×2 (08:25→20:33)
[2018-11-02] MEDS: OMEPRAZOLE 20 MG CAP PO SCH ×2 (08:25→20:33)
[2018-11-02] MEDS: ATORVASTATIN 20 MG TAB PO SCH (08:26)
[2018-11-02] MEDS ORDERED: LEVEMIR (INSULIN DETEMIR) 1 UNITS/0.01ML SC SCH ×2 (09:00→21:00)
--- NOTE | 2018-11-02 18:27 | IPNPDOC ---
Text Note Date of Service The patient was seen on 11/02/18. NOTE Subjective: Patient continues to have shortness of breath, but she stated that it's markedly improved. Patient denies fever, chills, nausea, vomiting, palpitations, diarrhea or dysuria Objective: General: Morbidly obese female General - NAD, sitting up in bed Eyes - PERRLA, EOM intact Neck - No noticeable or palpable swelling, redness or rash around throat or on face Lymph Nodes - No lymphadenopathy Cardiovascular - RRR no m/r/g, no JVD, no carotid bruits Lungs - Clear to auscultation, no use of accessory muscles, diminished lung sounds Skin - No rashes, skin warm and dry, no erythematous areas Abdomen - Normal bowel sounds, abdomen soft and nontender Extremities -+1 edema bilaterally Musculo Skeletal - 5/5 strength, normal range of motion, no swollen or eryth ematous joints. Neurological Alert and oriented x 3, CN 2-12 grossly intact Assessment and plan: Patient is 67 years old female with past mental history of atrial fibrillation, CHF, COPD presented hospital with increased shortness of breath. CT scan showed patchy airspace opacities in both lower lobes. Findings may represent multifocal pneumonitis. Large focus of pleural-based parenchymal opacification in the lateral aspect of the left lower lobe. Treatment with levofloxacin and inhalers started Copd exacerbation vs pneumonia -possible left lower lobe infiltrate on CT, however procalcitonin was negative, no leukocytosis Continue levofloxacin DuoNeb around the clock Incentive spirometry Continue by mouth steroids CHF Echo pending I's and O's Fluid restriction Resumed torsemide DM2 Due to initiation of steroids glucose level significantly elevated today Insulin sliding scale I increased the dose of detemir to 50 units daily at bedtime Diabetes diet htn//hld Continue cardioprotective medications right leg swelling venous doppler pending afib Lopressor IV with parameters Continue beta blockers by mouth Continue anticoagulation with Eliquis VS,Fishbone, I+O VS, Fishbone, I+O Laboratory Tests 11/02/18 05:30 Red Blood Count 4.13, Mean Corpuscular Volume 93.2, Mean Corpuscular Hemoglobin 30.0, Mean Corpuscular Hemoglobin Concent 32.2, Red Cell Distribution Width 14.1, Calcium Level 9.3 Vital Signs Date Time Temp Pulse Resp B/P (MAP) Pulse Ox O2 Delivery O2 Flow Rate FiO2 11/02/18 16:00 96.8 105 17 119/66 (83) 99 2.0 11/01/18 16:56 Nasal Cannula I&O- Last 24 Hours up to 6 AM 11/02/18 05:59 Intake Total 350 ml Output Total 3050 ml Balance -2700 ml ADRIÁN PARISH DO Nov 02, 2018 18:27
[2018-11-02] MEDS ORDERED: IPRATROPIUM 0.5MG/ALBUTEROL 2.5MG INH SOL UD 3ML (DUONEB)(J7620) NEB PRN (18:30)
[2018-11-02] MEDS: TORSEMIDE 20 MG TAB PO SCH (18:57)
[2018-11-02] MEDS: ACETAMINOPHEN TAB 650MG DOSE (2X325MG) PO PRN (23:11)
[2018-11-03] VITALS (14 sets, daily range): BP systolic 98–132; BP diastolic 57–80; O2SAT 95–98
[2018-11-03] MEDS: LevoFLOXacin 750 MG TABLET PO SCH (05:21)
[2018-11-03] MEDS: LEVOTHYROXINE 50MCG TABLET (0.05MG) PO SCH (05:21)
[2018-11-03] MEDS: METOPROLOL 5 MG/5 ML VIAL IV SCH ×4 (05:24→23:58)
[2018-11-03 06:14] LABS: HEMATOCRIT 35.9 % (36.0-47.0); HEMOGLOBIN 11.6 g/dl (12.0-15.5); MEAN CORPUSCULAR HEMOGLOBIN 30.2 pg (27.0-33.0); MEAN CORPUSCULAR HGB CONC 32.3 g/dl (32.0-36.5); MEAN CORPUSCULAR VOLUME 93.5 fl (80.0-96.0); PLATELET COUNT, AUTOMATED 280 10^3/uL (150-450); RED BLOOD COUNT 3.84 10^6/uL (4.00-5.40); WHITE BLOOD COUNT 10.8 10^3/uL (4.0-10.0)
[2018-11-03 06:46] LABS: BLOOD UREA NITROGEN 27 MG/DL (7-18); CARBON DIOXIDE LEVEL 29 MEQ/L (21-32); CHLORIDE LEVEL 102 MEQ/L (98-107); CREATININE FOR GFR 0.88 MG/DL (0.55-1.30); GLOMERULAR FILTRATION RATE > 60.0 (>45); GLUCOSE, FASTING 322 MG/DL (70-100); SODIUM LEVEL 139 MEQ/L (136-145)
[2018-11-03] MEDS: HumaLOG INSULIN (NovoLOG) PER UNIT SC SCH ×3 (08:27→17:32)
[2018-11-03] MEDS: MAGNESIUM CHLORIDE 64 MG TABCR (SLO MAG) PO SCH (08:28)
[2018-11-03] MEDS: VITAMIN D 1,000 INTERNATIONAL UNITS TABLET PO SCH ×2 (08:29→21:35)
[2018-11-03] MEDS: OMEPRAZOLE 20 MG CAP PO SCH ×2 (08:29→21:35)
[2018-11-03] MEDS: APIXABAN 2.5 MG TAB (ELIQUIS) PO SCH ×2 (08:29→21:35)
[2018-11-03] MEDS: predniSONE 20 MG TAB PO SCH ×2 (08:29→21:35)
[2018-11-03] MEDS: FOLIC ACID 1 MG TAB PO SCH ×2 (08:29→21:35)
[2018-11-03] MEDS: POTASSIUM CHLORIDE 10 MEQ SR TABLET PO SCH (08:30)
[2018-11-03] MEDS: ATORVASTATIN 20 MG TAB PO SCH (08:30)
[2018-11-03] MEDS: AcetaZOLAMIDE 250 MG TAB PO SCH ×2 (08:31→21:35)
[2018-11-03] MEDS: MAGNESIUM OXIDE 400 MG TAB (MAG-OX) PO SCH ×2 (08:31→21:35)
[2018-11-03] MEDS: FERROUS GLUCONATE 324 MG TAB PO SCH ×2 (08:32→21:35)
[2018-11-03] MEDS: MONTELUKAST 10 MG TAB PO SCH (08:32)
[2018-11-03] MEDS: rOPINIRole 1MG TAB PO SCH ×2 (08:32→21:36)
[2018-11-03] MEDS: DOCUSATE SODIUM 100 MG CAP PO SCH ×2 (08:32→21:35)
[2018-11-03] MEDS: ACETAMINOPHEN TAB 650MG DOSE (2X325MG) PO PRN ×3 (08:33→17:10)
[2018-11-03] MEDS: FLUTICASONE HFA 110 MCG 12 GM INHALER (FLOVENT) INH SCH ×2 (08:45→20:03)
[2018-11-03] MEDS: SPIRONOLACTONE 12.5MG PER 1/2 TABLET PO SCH (08:46)
[2018-11-03] MEDS: METOPROLOL SUCC (TopROL XL) 50MG **XL** TAB PO SCH (08:46)
[2018-11-03] MEDS: TORSEMIDE 20 MG TAB PO SCH ×2 (08:46→17:09)
[2018-11-03] MEDS: LISINOPRIL 5 MG TAB PO SCH (08:47)
[2018-11-03] MEDS ORDERED: LEVEMIR (INSULIN DETEMIR) 1 UNITS/0.01ML SC SCH ×2 (09:00→21:00)
[2018-11-03] MEDS ORDERED: FLUBLOK(EGG FREE)(QUAD)INFLUENZA VACC 0.5ML SYRINGE (90682)18YRS&OLDER IM ONE (09:00)
[2018-11-03] MEDS: MIRALAX *UNIT DOSE* 17GM PACKET PO SCH (09:04)
[2018-11-03] MEDS: IPRATROPIUM 0.5MG/ALBUTEROL 2.5MG INH SOL UD 3ML (DUONEB)(J7620) NEB SCH ×4 (12:00→23:19)
[2018-11-03] MEDS ORDERED: HumaLOG INSULIN (NovoLOG) PER UNIT SC SCH (12:00)
[2018-11-03] MEDS ORDERED: IPRATROPIUM 0.5MG/ALBUTEROL 2.5MG INH SOL UD 3ML (DUONEB)(J7620) NEB SCH (12:00)
--- NOTE | 2018-11-03 15:33 | IPNPDOC ---
Text Note Date of Service The patient was seen on 11/03/18. NOTE Subjective: Patient continues to have shortness of breath, oxygen saturation is around 91% when she walk, she c/o on groin itchiness. Also patient developed pause on telemetry of 3.2 seconds. Patient denies fever, chills, nausea, vomiting, palpitations, diarrhea or dysuria Objective: General: Morbidly obese female General - NAD, sitting up in bed Eyes - PERRLA, EOM intact Neck - No noticeable or palpable swelling, redness or rash around throat or on face Lymph Nodes - No lymphadenopathy Cardiovascular - RRR no m/r/g, no JVD, no carotid bruits Lungs - Clear to auscultation, no use of accessory muscles, diminished lung sounds Skin - No rashes, skin warm and dry, no erythematous areas Abdomen - Normal bowel sounds, abdomen soft and nontender Extremities -+1 edema bilaterally Musculo Skeletal - 5/5 strength, normal range of motion, no swollen or erythematous joints. Neurological Alert and oriented x 3, CN 2-12 grossly intact Assessment and plan: Patient is 67 years old female with past mental history of atrial fibrillation, CHF, COPD presented hospital with increased shortness of breath. CT scan showed patchy airspace opacities in both lower lobes. Findings may represent multifocal pneumonitis. Large focus of pleural-based parenchymal opacification in the lateral aspect of the left lower lobe. Treatment with levofloxacin and inhalers started Copd exacerbation vs pneumonia -possible left lower lobe infiltrate on CT, however procalcitonin was negative, no leukocytosis. Patient continues to have high oxygen requirements. Continue levofloxacin DuoNeb around the clock Incentive spirometry Continue by mouth steroids Appreciate/agree with injury/safety hazard assessment consult PT/OT Atrial fibrillation Continue anticoagulation therapy Rate controlled Patient developed pause on telemetry overnight 3.2 seconds. Appreciate/agree with Dr. Shannon consult CHF I's and O's Fluid restriction Resumed torsemide DM2 Due to initiation of steroids glucose level elevated today Insulin sliding scale I increased the morning dose of detemir and did adjustment of insulin sliding scale according to her home regimen Diabetes diet Patient morbidly obese and would benefit from bariatric surgery. htn//hld Continue cardioprotective medications right leg swelling venous doppler pending Obstructive sleep apnea CPAP overnight Groin itchiness Nystatin powder VS,Fishbone, I+O VS, Fishbone, I+O Laboratory Tests 11/03/18 05:34 Red Blood Count 3.84 L, Mean Corpuscular Volume 93.5, Mean Corpuscular Hemoglobin 30.2, Mean Corpuscular Hemoglobin Concent 32.3, Red Cell Distribution Width 13.9, Calcium Level 9.0 Vital Signs Date Time Temp Pulse Resp B/P (MAP) Pulse Ox O2 Delivery O2 Flow Rate FiO2 11/03/18 12:00 97.2 88 17 98/62 (74) 98 2.0 11/01/18 16:56 Nasal Cannula I&O- Last 24 Hours up to 6 AM 11/03/18 06:00 Intake Total 1760 ml Output Total 2300 ml Balance -540 ml ADRIÁN PARISH DO Nov 03, 2018 15:33
--- NOTE | 2018-11-03 16:20 | REP ---
Duplex extremity venous ultrasound: Right lower extremity. History: Right leg swelling. Rule out DVT. Findings: Scan quality was inhibited by patient body habitus. The deep veins are anechoic and fully compressible from the groin to the popliteal fossa in the right lower extremity. Color flow imaging is homogeneous. Spectral Doppler interrogation demonstrates intact respiratory variation in flow and normal manual augmentation of flow. There is no evidence of deep vein thrombosis. Impression: Negative right lower extremity duplex venous ultrasound. No evidence of deep vein thrombosis. Electronically Signed by Juan Clinton MD 11/03/2018 04:11 P
--- NOTE | 2018-11-03 21:32 | CR ---
DATE OF CONSULTATION: 11/03/2018 REFERRING PHYSICIAN: Dr. Sullivan from hospitalist service INDICATION: Suspected sick sinus syndrome with 3.2 second pause last night. HISTORY OF PRESENT ILLNESS: Mrs. Bryson is previously unknown to me, but she has been followed by Dr. Eli in [place] for multiple cardiac issues that include a history of paroxysmal atrial fibrillation, hypertension, dyslipidemia and congestive heart failure with preserved left ventricular systolic function. She was admitted to this facility on November 01, 2018 with dyspnea. She was found to be in atrial fibrillation, and she is also being treated for suspected pneumonia. Last night while being on telemetry, she had a pause that was slightly over 3 seconds. It occurred a little after 5 o'clock in the morning, and the patient was sleeping. Obviously she was asymptomatic. Then, today during the day, she has been in atrial fibrillation with controlled rate. At bedside, the patient tells me that she has had atrial fibrillation as long as she can remember. She has been anticoagulated with Eliquis after previously had episodes of gastrointestinal (GI) bleeding on Xarelto. To the best of her understanding, she does not have coronary artery disease. She also denies any recent significant change in her weight, even though she admits that she probably gained some. Her peak weight was over 600 pounds, and she lost a lot of weight after bariatric surgery, but she believes that in last few months there has been some weight gain. She denies any history of syncope or near syncope. She does get short of breath with fairly minimal activity, and she has been feeling tired for quite some time. PAST MEDICAL HISTORY: 1. Paroxysmal atrial fibrillation dating back to 2014. During her last office visit in August [address] Eli, she was in sinus rhythm with first-degree atrioventricular (AV) block and nonspecific intraventricular conduction delay (IVCD), chronically anticoagulated with Eliquis as above. 2. Chronic respiratory insufficiency. She is on home oxygen. I suspect that she most likely has obesity hypoventilation syndrome with secondary right-sided heart failure. 3. Hypertension. 4. Dyslipidemia. 5. Hypothyroidism. 6. Type 2 diabetes. 7. Morbid obesity. 8. History of chemotherapy for endometrial cancer. 9. Degenerative joint disease. 10. She carries a diagnosis of chronic principally right-sided heart failure. 11. Her last evaluation for ischemia was cardiac PET scan in 2018 that revealed left ventricle ejection fraction 59% with no evidence for ischemia. SURGICAL HISTORY: Positive for bariatric surgery, hysterectomy for cancer and hernia repair. SOCIAL HISTORY: The patient used to smoke but quit several years ago. She does not drink any alcohol. She lives with [facility]. She uses marijuana. FAMILY HISTORY: Her mother and sister had endometriosis, her father had coronary artery disease. OUTPATIENT MEDICATIONS: She had a very long list: - amitriptyline 25 mg a day - apixaban 5 mg twice a day - aspirin 81 mg a day - atorvastatin 80 mg a day - captopril 3.125 mg three times a day - vitamin D3 - digoxin 0.125 mg a day - duloxetine 30 mg two pills twice a day - esomeprazole 40 mg twice a day - iron gluconate one tablet twice a day - Flovent inhaler - furosemide 40 mg twice a day - insulin - levothyroxine 50 mcg a day - lisinopril 5 mg a day - magnesium 400 mg twice a day - metformin 1 gram twice a day - Toprol XL 50 mg a day - montelukast 10 mg a day - [place]-3 fatty acids 1 gram twice a day - potassium 20 mEq a day - spironolactone 25 mg tablet, half a tablet a day - vitamin D3 She does not have any medication allergies. REVIEW OF SYSTEMS: She denies any recent nausea, vomiting, diarrhea. She did have some nocturnal dyspnea. She does have chronic abdominal discomfort related to her prior surgeries. She has had intermittent variable amount of edema of lower extremities and also of the abdominal wall. Denies any syncope or near syncope. The rest as per history of the present illness. PHYSICAL EXAMINATION: Mrs. Bryson is a pleasant, elderly, morbidly obese female. She is a good historian. Blood pressure 132/76, heart rate has been mostly in 70s and 80s, atrial fibrillation. She is afebrile. Saturation is 97% on 2 liters of oxygen by nasal cannula. The documented weight has been 146 kg. She is alert and oriented and appropriate. Her jugular venous pressure (JVP) is very difficult to estimate due to her body habitus, but it does appear quite high. Lungs are very diminished. Again, due to obesity not easy to assess, but I do not appreciate any wheezing, crackles or rhonchi. Cardiac exam is similar. Muffled heart sounds, irregular rhythm. I do not appreciate distinct gallop. There is a murmur best heard in the axilla, systolic in nature, not more than 2/6 intensity. Abdomen is morbidly obese. There are scars after prior surgeries, and there is hernia and a scar after her, I suspect, bariatric surgery. There is a very prominent induration of the abdominal wall, which in my opinion is likely evidence for chronic anasarca and edema. There is also edema of both lower extremities. Neurologically, there is no focal weakness. She is alert and oriented and appropriate. LABORATORY: CBC revealed WBC 10.8, hemoglobin 11.6, hematocrit 35, platelet count 280,000. Basic metabolic panel is normal with the exception of glucose that was 322 today. TSH was on admission 1.0 and terminal pro-BNP was 743 and albumin 2.7. Digoxin level was only 0.2. ECG revealed presence of atrial fibrillation with nonspecific IVCD and mildly tachycardiac rate at 132 beats per minute. She had a chest x-ray and also chest CT, which revealed small opacity in right middle lobe and patchy opacities in both lower lobes that have been interpreted as representing a pneumonitis. There was also a small pericardial effusion by CT. ASSESSMENT/PLAN: Mrs. Bryson is a 67-year-old morbidly obese woman that has probably chronic hypoventilation syndrome with secondary right-sided congestive heart failure. She also carries a history of paroxysmal atrial fibrillation and currently is in rate-controlled atrial fibrillation. I was asked to see her because of isolated pause that occurred last night during sleep and just slightly exceeding 3 seconds. I do think it is extremely likely that this is a result of her underlying sleep apnea. She was already screened and provided a continuous positive airway pressure (CPAP) that she will sleep with today. My speculation is that it will resolve her problems with bradycardia at night. She is otherwise rate-controlled for atrial fibrillation and chronically anticoagulated. I do think that we do not have to attempt cardioversion to sinus rhythm, but it may occur spontaneously. In the long run, maintenance of sinus rhythm is probably going to be challenging on account of her multiple underlying comorbidities. I think we should focus on treatment of fluid retention. She will be helped in this regard by her CPAP, but I would recommend that we continue gentle diuresis. She is currently on torsemide 20 mg twice a day, and I would continue the same. If her blood pressure should become soft, we can discontinue her angiotensin-converting enzyme (BELLO) inhibitors as there is no convincing benefit in heart failure with preserved systolic function. Echocardiogram is pending. I do expect, though, that it will reveal pulmonary hypertension if the visualization will be sufficient because with her body habitus, we will probably get very limited information.
[2018-11-04] VITALS (13 sets, daily range): BP systolic 103–122; BP diastolic 58–84; O2SAT 93–99
[2018-11-04] MEDS: IPRATROPIUM 0.5MG/ALBUTEROL 2.5MG INH SOL UD 3ML (DUONEB)(J7620) NEB SCH ×4 (04:08→15:54)
[2018-11-04] MEDS: LEVOTHYROXINE 50MCG TABLET (0.05MG) PO SCH (05:20)
[2018-11-04] MEDS: LevoFLOXacin 750 MG TABLET PO SCH (05:20)
[2018-11-04] MEDS: ACETAMINOPHEN TAB 650MG DOSE (2X325MG) PO PRN (05:20)
[2018-11-04] MEDS: METOPROLOL 5 MG/5 ML VIAL IV SCH ×3 (06:00→17:58)
--- NOTE | 2018-11-04 06:02 | ECGEPIP ---
[facility] Test Date: 2018-11-03 Pat Name: BLAIR BREWSTER Department: Room: [place] [address] Gender: Female Medical Support Specialist: RAMEZ : 1950 Requested By: ADRIÁN PARISH Order Number: [id number] Reading MD: Elver Enciso Measurements Intervals [place] Rate: 85 P: SD: 0 QRS: 34 QRSD: 105 T: 44 QT: 392 QTc: 468 Interpretive Statements Atrial fibrillation with controlled ventricular response Nonspecific ST-T wave abnormalities Compared to prior tracing of 11/01/2018, heart rate is slower Electronically Signed on 11-04-2018 6:01:53 EDT by Elver Enciso
[2018-11-04 06:21] LABS: HEMATOCRIT 39.3 % (36.0-47.0); HEMOGLOBIN 12.7 g/dl (12.0-15.5); MEAN CORPUSCULAR HEMOGLOBIN 29.8 pg (27.0-33.0); MEAN CORPUSCULAR HGB CONC 32.3 g/dl (32.0-36.5); MEAN CORPUSCULAR VOLUME 92.3 fl (80.0-96.0); PLATELET COUNT, AUTOMATED 271 10^3/uL (150-450); RED BLOOD COUNT 4.26 10^6/uL (4.00-5.40); WHITE BLOOD COUNT 9.2 10^3/uL (4.0-10.0)
[2018-11-04 06:39] LABS: BLOOD UREA NITROGEN 31 MG/DL (7-18); CALCIUM LEVEL 9.2 MG/DL (8.8-10.2); CARBON DIOXIDE LEVEL 26 MEQ/L (21-32); CHLORIDE LEVEL 103 MEQ/L (98-107); CREATININE FOR GFR 0.88 MG/DL (0.55-1.30); GLOMERULAR FILTRATION RATE > 60.0 (>45); GLUCOSE, FASTING 292 MG/DL (70-100); POTASSIUM SERUM 4.4 MEQ/L (3.5-5.1); SODIUM LEVEL 137 MEQ/L (136-145)
[2018-11-04] MEDS: HumaLOG INSULIN (NovoLOG) PER UNIT SC SCH ×3 (08:26→16:53)
[2018-11-04] MEDS: DOCUSATE SODIUM 100 MG CAP PO SCH (08:34)
[2018-11-04] MEDS: MIRALAX *UNIT DOSE* 17GM PACKET PO SCH (08:34)
[2018-11-04] MEDS: LISINOPRIL 5 MG TAB PO SCH (08:34)
[2018-11-04] MEDS: MAGNESIUM CHLORIDE 64 MG TABCR (SLO MAG) PO SCH (08:35)
[2018-11-04] MEDS: FERROUS GLUCONATE 324 MG TAB PO SCH (08:35)
[2018-11-04] MEDS: METOPROLOL SUCC (TopROL XL) 50MG **XL** TAB PO SCH (08:36)
[2018-11-04] MEDS: predniSONE 20 MG TAB PO SCH (08:36)
[2018-11-04] MEDS: APIXABAN 2.5 MG TAB (ELIQUIS) PO SCH (08:36)
[2018-11-04] MEDS: rOPINIRole 1MG TAB PO SCH (08:36)
[2018-11-04] MEDS: ATORVASTATIN 20 MG TAB PO SCH (08:36)
[2018-11-04] MEDS: MAGNESIUM OXIDE 400 MG TAB (MAG-OX) PO SCH (08:37)
[2018-11-04] MEDS: SPIRONOLACTONE 12.5MG PER 1/2 TABLET PO SCH (08:37)
[2018-11-04] MEDS: VITAMIN D 1,000 INTERNATIONAL UNITS TABLET PO SCH (08:37)
[2018-11-04] MEDS: OMEPRAZOLE 20 MG CAP PO SCH (08:37)
[2018-11-04] MEDS: FOLIC ACID 1 MG TAB PO SCH (08:37)
[2018-11-04] MEDS: POTASSIUM CHLORIDE 10 MEQ SR TABLET PO SCH (08:38)
[2018-11-04] MEDS: AcetaZOLAMIDE 250 MG TAB PO SCH (08:38)
[2018-11-04] MEDS: TORSEMIDE 20 MG TAB PO SCH ×2 (08:38→16:48)
[2018-11-04] MEDS: MONTELUKAST 10 MG TAB PO SCH (08:38)
[2018-11-04] MEDS: FLUTICASONE HFA 110 MCG 12 GM INHALER (FLOVENT) INH SCH (08:39)
[2018-11-04] MEDS ORDERED: LEVEMIR (INSULIN DETEMIR) 1 UNITS/0.01ML SC SCH ×2 (09:00→21:00)
[2018-11-04 09:56] LABS: MAGNESIUM LEVEL 1.9 MG/DL (1.8-2.4)
[2018-11-04] MEDS ORDERED: LEVO750T13 PO (11:06)
[2018-11-04] MEDS ORDERED: PRED10TA2 PO (11:06)
[2018-11-04] MEDS ORDERED: VENTAER INH (11:06)
--- NOTE | 2018-11-04 12:20 | CR ---
DATE OF CONSULTATION: 11/04/2018 Pulmonary team was asked by the hospitalist for consultation on Ms. Meme Bryson. Ms. Bryson as a 67-year-old female who was admitted for possible pneumonia. Medicine team was concerned about her shortness of breath and, therefore, consulted pulmonary. When we were consulted for this case, it does appear the patient is in the process of being discharged home today. The patient does give a history of about a week-long history of respiratory symptoms including dyspnea and coughing prior to being admitted. She states that she had a productive cough initially which is now dry as well as some chills prior to being admitted. She states that on 11/01/2018, she presented to the emergency department with increasing shortness of breath, cough, and chills and was subsequently admitted with a possible pneumonia. A chest CT was done and was abnormal. It did show patchy opacities bilateral lower opacities as well as a left lower lobe opacity which was concerning for infection. She also was noted to have a 9 mm right middle lobe ground-glass opacity that will require repeat chest CT in [address] Evans and I also noted right-sided nodules in the fissure that also will require followup. The patient was treated with prednisone and Levaquin and, as noted on the day that we were consulted, she is in the process of being discharged home. The patient does state that she does have a transportation driver that she sees in [place]. She is currently being worked up for a probable obstructive sleep apnea and did undergo any recent sleep study. She states that she will also be following with a transportation driver for respiratory issues as well as she states she has a history of asthma and is on Flovent as an outpatient. The patient does also have a history of congestive heart failure and atrial fibrillation. She was seen here by cardiology yesterday and is being worked up for the atrial fibrillation. She has had an echocardiogram done, which is currently pending. Patient denies any current respiratory symptoms. She states her breathing has been progressively improving since she has been here. She is on supplemental oxygen at nighttime. She is followed for congestive heart failure as noted above. The patient does have history of obesity and underwent bariatric surgery some time ago. Obesity hypoventilation syndrome was also suspected but, as noted, the patient has recently undergone outpatient workup for obstructive sleep apnea and plans on returning to her transportation driver for further evaluation and treatment. REVIEW OF SYSTEMS: 1. General: Patient denies fevers, chills, unexplained weight loss, 2. HEENT: The patient denies sore throat. Does note some intermittent dizziness secondary to medications, which has been longstanding. 3. Cardiac: The patient denies any current chest pain. Does have a history of atrial fibrillation and is being worked up by cardiology. 4. Pulmonary: The patient notes dyspnea as well as dry cough. She denies hemoptysis. 5. Gastrointestinal (GI): The patient denies nausea, vomiting, diarrhea, abdominal pain. No hematemesis. No bright red blood per rectum. 6. Genitourinary (): The patient denies any current urinary symptoms. Denies dysuria or hematuria. 7. Musculoskeletal: Patient notes of bilateral knee pain. 8. Hematology: The patient denies any bleeding issues. 9. Neuro: Patient notes some intermittent paresthesias of the upper and lower extremities. Denies any seizures or strokes. PAST MEDICAL HISTORY: 1. Paroxysmal atrial fibrillation, is on Eliquis. 2. Suspected obstructive sleep apnea / suspected obesity hypoventilation syndrome. 3. History of right-sided heart failure. 4. Hypertension. 5. Dyslipidemia. 6. Hypothyroidism. 7. Diabetes mellitus type 2. 8. Morbid obesity. 9. History of endometrial cancer. Underwent chemotherapy. 10. Osteoarthritis. 11. Status post hysterectomy. 12. Status post bariatric surgery. SOCIAL HISTORY: The patient states that she smoked as a teenager into her early 20s for just a year or two and only smoked a couple cigarettes a day and quit for good at age 23. The patient denies any significant alcohol use, stating she has a drink once a year. She states that she does use marijuana for chronic knee pain. FAMILY MEDICAL HISTORY: The patient notes that her father had coronary artery disease and notes that her mother had endometriosis. OUTPATIENT MEDICATION LIST: Includes; - amitriptyline 25 mg daily - apixaban 5 mg twice a day - aspirin 81 mg daily - atorvastatin 80 mg daily - captopril 3.125 mg three times a day - vitamin D3 - digoxin 0.125 mg daily - duloxetine 30 mg two pills twice a day - esomeprazole 40 mg twice a day - iron gluconate twice a day - Flovent - furosemide 40 mg twice a day - insulin - levothyroxine 50 mcg daily - lisinopril 5 mg daily - magnesium 400 mg twice a day - metformin 1 gram twice a day - Toprol XL 50 mg daily - montelukast 10 mg daily - omega 3 fatty acids - potassium 20 mEq daily - spironolactone 12.5 mg daily INPATIENT MEDICATIONS: Include; - acetaminophen 650 mg by mouth every 4 hours as needed pain or fever - Colace 100 mg by mouth twice a day - Mylanta 3 mL daily as needed for constipation - prednisone 40 mg by mouth twice a day - Levaquin 750 mg by mouth daily - Diamox 250 mg by mouth twice a day - Eliquis 2.5 mg twice a day - Lipitor 80 mg by mouth daily - Zyrtec 10 mg daily ALLERGIES: No known drug allergies. PHYSICAL EXAMINATION: Vital signs: Temperature is 96.1, pulse 66, respiratory rate 18, blood pressure is 103/58, pulse oximetry 93% on room air. General: The patient is alert and oriented. She is sitting up in her chair. She speaks in complete sentences. She is morbidly obese. HEENT: Head is normocephalic, atraumatic. Eyes are nonicteric, nonsclerotic, pupils equal, round, and reactive to light and accommodation. Moist mucous membranes. Mallampati IV. Tongue is midline. Neck: Neck is supple. JVP is difficult to estimate due to body habitus. Trachea is midline. No obvious cervical lymphadenopathy. Heart: Irregular rhythm. Distant heart sounds. Pulmonary: Breath sounds are diminished. No obvious wheezing, rales, or rhonchi. No accessory muscle use. Abdomen: Morbidly obese. Distant bowel sounds. Hepatosplenomegaly is difficult to assess due to body habitus. Extremities: Trace to 1+ edema bilateral lower extremities. Neuro: Nonfocal grossly. Skin: Skin is warm and dry. LABS: WBC 9.2, hemoglobin 12.7, hematocrit 39.3, platelets 271. Sodium 137, potassium 4.4, chloride 103, carbon dioxide 26, BUN 31, creatinine 0.88, glucose 292, calcium 9.2, magnesium 1.9. Chest CT from 11/01/[address] Evans and myself. There is right middle lobe 9 mm ground-glass opacity. There are patchy opacities of bilateral lower lobes. There is a left lower lobe opacity. There is a small pericardial effusion. There are right-sided nodules in the fissure. ASSESSMENT AND PLAN: 1. Abnormal chest CT. Possible respiratory infection. The patient is being treated for respiratory infection with Levaquin and prednisone. CT does show opacities of the lower lobes at the bases along with a left lower lobe opacity as well as a 9 mm ground-glass opacity of the lobe. Differential diagnosis includes pulmonary edema as well as atelectasis, but malignancy cannot be completely ruled out. Therefore, the patient should have followup chest CT in a month to reassess. The patient does have that 9 mm ground-glass opacity of the right middle lobe in which the radiologist does advise repeat chest CT in 6 months as well, and the patient does have nodules in the right fissure that should also be reassessed. The patient already has a transportation driver in [place] whom she is currently following with for her sleep apnea workup. She is happy with that transportation driver and wishes to continue to follow. She states that the transportation driver is also following her for respiratory issues. Therefore, we would suggest that the patient does have a repeat chest CT ordered by her transportation driver in a month to reassess the opacities and abnormalities noted on the current chest CT from 11/01/2018. Furthermore, she does have a 9 mm ground-glass opacity in which, according to Katie criteria from the radiologist, requires a repeat chest CT and 6-12 months as well. Therefore, we recommend that the patient does followup with her transportation driver for recheck of the abnormal CT. 2. Probable obstructive sleep apnea (SUZIE) with possible obesity hypoventilation syndrome. The patient is currently following with [facility] in [place] for SUZIE workup and did recently undergo sleep test and is awaiting followup with her transportation driver to review the results and determine the remainder of the evaluation and treatment. She should followup with her transportation driver for this when she is discharged from the hospital. As noted, it appears that the patient is in the midst of being discharged currently. As noted, she should followup with her transportation driver in [place] for the abnormal chest CT and the probable obstructive sleep apnea. VIRGILIO
--- NOTE | 2018-11-04 20:01 | DS.PDOC ---
Discharge Summary General Date of Admission Nov 01, 2018 at 19:13 Date of Discharge 11/04/18 Attending Physician: ADRIÁN PARISH DO Discharge Summary PROCEDURES PERFORMED DURING STAY: None ADMITTING DIAGNOSES: Copd exacerbation Atrial fibrillation Diastolic CHF DM2 Diabetes diet htn hld right leg swelling Obstructive sleep apnea Groin itchiness DISCHARGE DIAGNOSES: Copd exacerbation Atrial fibrillation Diastolic CHF DM2 Diabetes diet htn hld right leg swelling Obstructive sleep apnea Groin itchiness COMPLICATIONS/CHIEF COMPLAINT: A Fib;Chf Exacerbation;Pneumonia. HISTORY OF PRESENT ILLNESS:Ms. Bryson as a 67-year-old female who was admitted for possible pneumonia. The patient does give a history of about a week-long history of respiratory symptoms including dyspnea and coughing prior to being admitted. She states that she had a productive cough initially which is now dry as well as some chills prior to being admitted. She states that on 11/01/2018, she presented to the emergency department with increasing shortness of breath, cough, and chills and was subsequently admitted with a possible pneumonia. A chest CT was done and was abnormal. It did show patchy opacities bilateral which was concerning for infection. She also was noted to have a 9 mm right middle lobe ground-glass opacity that will require repeat chest CT in 6 months for followup. The patient was treated with prednisone and Levaquin . The patient does state that she does have a slat grader that she sees in [place]. She is currently being worked up for a probable obstructive sleep apnea and did undergo any recent sleep study. She states that she will also be following with a slat grader for respiratory issues as well as she states she has a history of asthma and is on Flovent as an outpatient. The patient does also have a history of congestive heart failure and atrial fibrillation. She was seen here by cardiology yesterday and is being worked up for the atrial fibrillation. She has had an echocardiogram done, which is currently pending. Patient denies any current respiratory symptoms. She states her breathing has been progressively improving since she has been here. She is on supplemental oxygen at nighttime. She is followed for congestive heart failure as noted above. The patient does have history of obesity and underwent bariatric surgery some time ago. Obesity hypoventilation syndrome was also suspected but, as noted, the patient has recently undergone outpatient workup for obstructive sleep apnea and plans on returning to her slat grader for further evaluation and treatment. HOSPITAL COURSE: See above The following issue was addressed Copd exacerbation vs pneumonia -possible left lower lobe infiltrate on CT, however procalcitonin was negative, no leukocytosis Patient received treatment with levofloxacin DuoNeb around the clock Incentive spirometry Continue by mouth steroids Appreciate/agree with slat grader consult PT/OT Atrial fibrillation Continue anticoagulation therapy Rate controlled Patient developed pause on telemetry overnight 3.[address] Shannon recommended follow-up with utility assembler. Most likely cardiac pause was attributed to obstructive sleep apnea CHF I's and O's Fluid restriction Resumed torsemide DM2 Due to initiation of steroids glucose level elevated Insulin sliding scale I increased the morning dose of detemir and did adjustment of insulin sliding scale according to her home regimen Diabetes diet Patient morbidly obese and would benefit from bariatric surgery. htn//hld Continue cardioprotective medications right leg swelling venous doppler negative Obstructive sleep apnea CPAP overnight Groin itchiness Nystatin powder DISCHARGE MEDICATIONS: Please see below. ALLERGIES: Please see below. General: Morbidly obese female General - NAD, sitting up in bed Eyes - PERRLA, EOM intact Neck - No noticeable or palpable swelling, redness or rash around throat or on face Lymph Nodes - No lymphadenopathy Cardiovascular - RRR no m/r/g, no JVD, no carotid bruits Lungs - Clear to auscultation, no use of accessory muscles, diminished lung sounds Skin - No rashes, skin warm and dry, no erythematous areas Abdomen - Normal bowel sounds, abdomen soft and nontender Extremities -+1 edema bilaterally Musculo Skeletal - 5/5 strength, normal range of motion, no swollen or erythematous joints. Neurological Alert and oriented x 3, CN 2-12 grossly intact LABORATORY DATA: Please see below. IMAGING:PROCEDURE INFORMATION: Exam: CT Chest With Contrast Exam date and time: 11/01/2018 8:22 PM Clinical history: 67 years old, female; Abnormal findings; Abnormal radiologic exam of lung or chest; Additional info: Abnormal cxr TECHNIQUE: Imaging protocol: Computed tomography of the chest with intravenous contrast. 3D rendering: MIP reconstructed images were created and reviewed. Radiation optimization: All CT scans at this facility use at least one of these dose optimization techniques: automated exposure control; mA and/or kV adjustment per patient size (includes targeted exams where dose is matched to clinical indication); or iterative reconstruction. Contrast material: ISOVUE 370; Contrast volume: 75 ml; Contrast route: IV; COMPARISON: CR PORTABLE CHEST X-RAY 11/01/2018 5:07 PM FINDINGS: Lungs: 9 mm ground glass opacity right middle lobe. Patchy airspace opacities in both lower lobes. Findings may represent multifocal pneumonitis. Pleural space: Large focus of pleural-based parenchymal opacification in the lateral aspect of the left lower lobe. Heart: Cardiomegaly. There is moderate atherosclerotic calcification of the coronary arteries. Small pericardial effusion. Aorta: Unremarkable. No aortic aneurysm. Lymph nodes: Unremarkable. No enlarged lymph nodes. Bones/joints: The spine demonstrates moderate degenerative changes. Soft tissues: Unremarkable. Stomach and bowel: Status post gastric bypass surgery. Other findings: Parasitosis. IMPRESSION: 1. 9 mm ground glass opacity right middle lobe. Recommend CT at 6-12 months to confirm persistence of the nodule, then CT at 3 and at 5 years. (Nya et al., Fleischner Society, 2017) 2. Patchy airspace opacities in both lower lobes. Findings may represent multifocal pneumonitis. 3. Large focus of pleural-based parenchymal opacification in the lateral aspect of the left lower lobe. 4. Small pericardial effusion. Electronically signed by: Michael Mckeon On 11/01/2018 20:37:36 PM DD: MICHAEL MCKEON MD 11/01/182021 DT: NAN 11/01/182036 DS: EVELYN 11/01/182036 PROGNOSIS: Favorable ACTIVITY: [As tolerated]. DIET: Cardiac and diabetes DISCHARGE PLAN: Home DISPOSITION: 01 Home, Self-Care. DISCHARGE INSTRUCTIONS: 1. Follow-up with slat grader and utility assembler in 2 weeks ITEMS TO FOLLOWUP ON ON OUTPATIENT: CT scan in one month DISCHARGE CONDITION: Stable TIME SPENT ON DISCHARGE: Greater than 25 minutes. Vital Signs/I&Os Vital Signs Date Time Temp Pulse Resp B/P (MAP) Pulse Ox O2 Delivery O2 Flow Rate FiO2 11/04/18 17:58 88 11/04/18 12:00 93 Room Air 0.0 11/04/18 08:36 103/58 11/04/18 08:00 96.1 18 I&O- Last 24 Hours up to 6 AM 11/04/18 06:00 Intake Total 780 ml Output Total 4025 ml Balance -3245 ml Laboratory Data Labs 24H Laboratory Tests 2 11/03/18 20:35: Bedside Glucose (Misc Panel) 233H 11/04/18 06:04: Nucleated Red Blood Cells % (auto) 0.0, Anion Gap 8, Glomerular Filtration Rate > 60.0, Blood Urea Nitrogen 31H, Creatinine 0.88, Sodium Level 137, Potassium Level 4.4, Chloride Level 103, Carbon Dioxide Level 26, Calcium Level 9.2, Magnesium Level 1.9 11/04/18 11:36: Bedside Glucose (Misc Panel) 229H 11/04/18 16:49: Bedside Glucose (Misc Panel) 309H CBC/BMP Laboratory Tests 11/04/18 06:04 Red Blood Count 4.26, Mean Corpuscular Volume 92.3, Mean Corpuscular Hemoglobin 29.8, Mean Corpuscular Hemoglobin Concent 32.3, Red Cell Distribution Width 14.1, Calcium Level 9.2 FSBS Laboratory Tests Test 11/03/18 20:35 11/04/18 11:36 11/04/18 16:49 Range/Units Bedside Glucose (Misc Panel) 233 229 309 80-115 MG/DL Microbiology Microbiology 11/01/18 Blood Culture - Preliminary, Resulted No Growth after 72 hours. All specime... 11/01/18 Respiratory Virus Panel (PCR) (QUINN) - Final, Complete 11/01/18 Blood Culture - Preliminary, Resulted No Growth after 72 hours. All specime... Discharge Medications Scheduled Acetazolamide (Acetazolamide) 250 Mg Tablet, 250 MG PO BID, (Reported) 0800 AND 1600 Apixaban (Eliquis) 2.5 Mg Tab, 2.5 MG PO BID, (Reported) 0800 and 1600 Atorvastatin Calcium (Atorvastatin Calcium) 80 Mg Tablet, 80 MG PO DAILY, (Reported) Cholecalciferol (Vitamin D3) (Vitamin D3) 1,000 Unit Capsule, 1,000 UNIT PO BID, (Reported) 0800 AND 1600 Digoxin (Digoxin) 125 Mcg Tablet, 125 MCG PO DAILY, (Reported) Dulaglutide (Trulicity) 1.5 Mg/0.5 Ml Pen.injctr, 1.5 MG SC QWEEK, (Reported) SATURDAYS Ferrous Gluconate (Ferrous Gluconate) 324 Mg Tablet, 324 TAB PO BID, (Reported) 0800 AND 1600 Fluticasone Propionate (Flovent Hfa) 110 Mcg/Act Aer.w.adap, 1 PUFF INH BID, (Reported) 0800 AND 1600 Folic Acid (Folic Acid) 1 Mg Tab, 2 MG PO BID, (Reported) 0800 AND 1600 Insulin Glargine,Hum.rec.anlog (Lantus Solostar) 100 Unit/1 Ml Insuln.pen, 30 UNIT SC QAM, (Reported) Insulin Glargine,Hum.rec.anlog (Lantus Solostar) 100 Unit/1 Ml Insuln.pen, 40 UNITS SC QHS, (Reported) Insulin Lispro (Humalog Kwikpen U-100) 100 Unit/1 Ml Insuln.pen, 1 DOSE SC AC, (Reported) PER SLIDING SCALE Levofloxacin (Levofloxacin) 750 Mg Tablet, 1 TAB PO DAILY Levothyroxine Sodium (Levothyroxine Sodium) 50 Mcg Tablet, 50 MCG PO DAILY, (Reported) Lisinopril (Lisinopril) 5 Mg Tablet, 5 MG PO DAILY, (Reported) Magnesium Oxide (Magnesium Oxide) 400 Mg Tablet, 400 MG PO BID, (Reported) 0800 AND 1600 Metformin HCl (Metformin HCl) 1,000 Mg Tab, 1,000 MG PO BID, (Reported) 0800 AND 1600 Metoprolol Succinate (Toprol Xl) 50 Mg Tab.er.24h, 50 MG PO DAILY, (Reported) Montelukast Sodium (Montelukast Sodium) 10 Mg Tab, 10 MG PO DAILY, (Reported) [place]-3 Fatty Acids/Fish Oil (Fish Oil 1,000 mg Capsule) 1 Each Capsule, 1,000 MG PO TID, (Reported) 0800, 1200, AND 1600 Omeprazole (Omeprazole) 40 Mg Capsule.dr, 40 MG PO BID, (Reported) 0800 AND 1600 Potassium Chloride (Potassium Chloride) 20 Meq Tab.er.prt, 20 MEQ PO DAILY, (Reported) Prednisone (Prednisone) 10 Mg Tablet, 10 MG PO TAPER Take 4 tabs daily x 3 days, then 3 tabs daily x 3 days, then 2 tabs daily x 3 days, then 1 tab daily x 3 days and stop Ropinirole HCl (Ropinirole HCl) 1 Mg Tab, 1 MG PO BID, (Reported) 0800 AND 2200 Spironolactone (Spironolactone) 25 Mg Tablet, 12.5 MG PO DAILY, (Reported) Torsemide (Torsemide) 10 Mg Tablet, 20 MG PO BID, (Reported) 0800 AND 1600 [Marijuana] CAP, 2 CAP PO TID, (Reported) 0800, 1600, AND 2200 Scheduled PRN Acetaminophen (Tylenol Extra Strength) 500 Mg Tablet, 2,000 MG PO DAILY PRN for HEADACHE, (Reported) Albuterol Sulfate (Ventolin Hfa) 18 Gm Hfa.aer.ad, 2 PUFF INH Q4-6HP PRN for wheezing Cetirizine HCl (Cetirizine HCl) 10 Mg Tablet, 10 MG PO DAILY PRN for ALLERGY SYMPTOMS, (Reported) Ipratropium/Albuterol Sulfate (Iprat-Albut 0.5-3(2.5) mg/3 ml) 3 Ml Ampul.neb, 1 FAZAL INH QID PRN for SOB/WHEEZING, (Reported) Nystatin (Nystatin Powder) 15 Gm Powder, 1 APLCT TOP QID PRN for ITCHING, (Reported) APPLIES TO GROIN, INNER LEGS, L BUTTOCK Allergies Coded Allergies: TAPE (Verified Allergy, Intermediate, rash, 11/01/18) adhesives ADRIÁN PARISH DO Nov 04, 2018 20:01
--- NOTE | 2018-11-05 18:43 | ECHO ---
DATE OF PROCEDURE: 11/04/2018 Date of : 1950 Age: 67 REFERRING PHYSICIAN: Milena Zelaya MD INDICATION: Dyspnea. HEIGHT: 152 cm WEIGHT: 147 kg DIMENSIONS: IVS: 1.2 LV: 6.0 LVPW: 1.2 LA: 4.8 Aorta: 3.0 RV: 2.8 Left atrial volume index: 47 IVC 2.6 Study is of very limited technical quality corresponding to patient's body habitus. The patient is in atrial fibrillation with controlled rate. Left ventricle is dilated. There is at least mild hypokinesis, but the visualization was limited. I would estimate the ejection fraction is around 45% or less, but again very limited views. Right ventricle was poorly visualized. Left atrium is severely enlarged. Right atrium is poorly seen. Aortic valve is sclerotic, but the limited visualization precludes commenting on its anatomy. Mitral valve appears grossly normal. Tricuspid valve also appears grossly normal based on limited views. Pulmonic valve was not seen. No pericardial effusion is noted. Inferior vena cava is markedly dilated and there is no appreciable collapse with respiration indicative of likely very high central venous pressure. Aortic root and aortic arch appear normal. Abdominal aorta was not well seen. Doppler interrogation reveals no significant aortic stenosis or insufficiency. There is trace mitral insufficiency. There is trivial tricuspid insufficiency but quality of TR jet was not sufficient to adequately estimate pulmonary artery pressure. Mitral inflow pattern and tissue Doppler imaging of mitral annulus are inconclusive for assessment of diastolic function due to underlying atrial fibrillation. CONCLUSION 1. Study is of markedly limited technical quality. 2. Dilated left ventricle with at least mild to moderate left ventricular systolic dysfunction. 3. No significant aortic, mitral and tricuspid valvular disease. 4. Very high central venous pressure. 5. Unable to estimate pulmonary artery pressure. 6. Severe left atrial enlargement. COMMENT Subacute bacterial endocarditis (SBE) prophylaxis is not recommended.
== END 2018-11-04 19:27 | disposition home or self-care (01) | DRG 190 ==
LOC: EDBD 16:45 → M ED 16:45 → M ED INP 19:13 → M PCU 22:31
PROVIDERS: ADMIT Internal Medicine; ATTEND Internal Medicine
DX: J44.1 Chronic obstructive pulmonary disease with (acute) exacerbation (principal); J18.9 Pneumonia, unspecified organism; Z68.44 Body mass index [BMI] 60.0-69.9, adult; E66.2 Morbid (severe) obesity with alveolar hypoventilation; J44.0 Chronic obstructive pulmonary disease with (acute) lower respiratory infection; I48.0 Paroxysmal atrial fibrillation; I11.0 Hypertensive heart disease with heart failure; E78.5 Hyperlipidemia, unspecified; E03.9 Hypothyroidism, unspecified; I50.810 Right heart failure, unspecified; E11.9 Type 2 diabetes mellitus without complications; F12.90 Cannabis use, unspecified, uncomplicated; M19.90 Unspecified osteoarthritis, unspecified site; Z85.44 Personal history of malignant neoplasm of other female genital organs; Z90.710 Acquired absence of both cervix and uterus; Z79.01 Long term (current) use of anticoagulants; Z79.82 Long term (current) use of aspirin; Z79.4 Long term (current) use of insulin; Z79.899 Other long term (current) drug therapy; Z91.048 Other nonmedicinal substance allergy status; M79.89 Other specified soft tissue disorders; I50.9 Heart failure, unspecified; I44.0 Atrioventricular block, first degree; Z92.21 Personal history of antineoplastic chemotherapy; Z98.84 Bariatric surgery status; Z87.891 Personal history of nicotine dependence

== ENCOUNTER → 2018-11-10 | Outpatient (REF) | payer MEDICARE, MEDICAID ==
[~2018-11-10] MED LIST changes: +ACET-897 PO; +ACET250T2 PO; +ALBU83IN NEB; +ALL10TAB29 PO; +ATOR80TA59 PO; +CETI10CH PO; +CHOL100029 PO; +D31000CA4 PO; +DIGO0.12 PO; +FERR32TA PO; +HUMA100I5 SC; +IPRA0.00 INH; +LASI40TA9 PO; +LEVO50TA5 PO; +LEVO750T13 PO; +LISI-542 PO; +MAGN400T PO; +MARIJUANA PO; +OMEP40CA2 PO; +POTA20TA6 PO; +PRED10TA2 PO; +SPIR-10 PO; +TORS10TA3 PO; +TRUL0.5I SC; +VENTAER INH
== END ==
LOC: M SFHCWAGY 15:17
PROVIDERS: ATTEND Nurse Practitioner Family
DX: Z12.4 Encounter for screening for malignant neoplasm of cervix (principal); Z77.9 Other contact with and (suspected) exposures hazardous to health; Z90.710 Acquired absence of both cervix and uterus; Z08 Encounter for follow-up examination after completed treatment for malignant neoplasm
CPT/HCPCS: G0101; G0123

== ENCOUNTER 2019-01-14 14:03 | Inpatient (IN) | payer MEDICARE, MEDICAID ==
[~2019-01-14] VITALS: Ht 154.9 cm; Wt 139.4 kg
[~2019-01-14 14:03] MED LIST changes: -DIGO0.12 PO; +DIGO0.123 PO; -MAGN400T PO; +MAGN400T3 PO; -OMEP40CA2 PO; +OMEP40CA97 PO
[2019-01-14 15:09] LABS: BASO % 0.1 % (0.0-1.0); HEMOGLOBIN 12.5 g/dl (12.0-15.5); LYMPH % 10.8 % (24.0-44.0); MEAN CORPUSCULAR HEMOGLOBIN 28.7 pg (27.0-33.0); MEAN CORPUSCULAR HGB CONC 31.3 g/dl (32.0-36.5); MONO # 1.2 10^3/uL (0.0-0.8); MONO % 13.4 % (0.0-5.0); NEUTROPHILS % 75.3 % (36.0-66.0); PLATELET COUNT, AUTOMATED 191 10^3/uL (150-450); RED BLOOD COUNT 4.35 10^6/uL (4.00-5.40); WHITE BLOOD COUNT 9.3 10^3/uL (4.0-10.0)
[2019-01-14] MEDS ORDERED: METO1TAB33 PO (15:11)
[2019-01-14 15:36] LABS: ALBUMIN 2.8 GM/DL (3.2-5.2); ALT/SGPT 18 U/L (12-78); BILIRUBIN,TOTAL 1.2 MG/DL (0.2-1.0); BLOOD UREA NITROGEN 21 MG/DL (7-18); CALCIUM LEVEL 8.5 MG/DL (8.8-10.2); CARBON DIOXIDE LEVEL 31 MEQ/L (21-32); CHLORIDE LEVEL 99 MEQ/L (98-107); CK-MB VALUE MASS < 1.0 NG/ML (<3.6); CPK CREATINE PHOSPHOKINASE 114 U/L (26-192); CREATININE FOR GFR 1.16 MG/DL (0.55-1.30); GLOMERULAR FILTRATION RATE 49.8 (>45); GLUCOSE, FASTING 320 MG/DL (70-100); MB/CK RELATIVE INDEX 0.88 (< OR =4); POTASSIUM SERUM 4.1 MEQ/L (3.5-5.1); SODIUM LEVEL 137 MEQ/L (136-145); TOTAL PROTEIN 6.2 GM/DL (6.4-8.2); TROPONIN I 0.05 NG/ML (< 0.10)
[2019-01-14 15:45] LABS: INR 1.41
[2019-01-14 15:46] LABS: PARTIAL THROMBOPLASTIN TIME 27.9 SECONDS (25.0-38.4)
[2019-01-14] MEDS: METOPROLOL 5 MG/5 ML VIAL IV SCH ×3 (15:47→15:58)
--- NOTE | 2019-01-14 16:39 | REP ---
Single view chest: 01/14/2019. Indication: Chest pain. Comparison: 11/01/2018. Findings: Left pleural effusion and basilar air space consolidation are not excluded. Cardiomegaly is present. Right-sided Port-A-Cath is noted. The right lung is clear. There is no pneumothorax. Impression: Left-sided small pleural effusion and basilar air space consolidation are not excluded. Electronically Signed by Lazaro Dorman DO 01/14/2019 04:30 P
[2019-01-14] MEDS ORDERED: METOPROLOL TART 50 MG TAB PO ONE (16:45)
[2019-01-14] MEDS ORDERED: cefTRIAXone SOD 1 GM in D5W MINI-BAG PLUS 50 ML IV ONE (17:45)
--- NOTE | 2019-01-14 18:17 | ECGEPIP ---
[facility] - ED Test Date: 2019-01-14 Pat Name: BLAIR BREWSTER Department: Room: - Gender: Female Early Childhood Coordinator: ct : 1950 Requested By: ABI Graves Order Number: [id number] Reading MD: Pako Cortés Measurements Intervals [place] Rate: 146 P: ID: 0 QRS: 12 QRSD: 92 T: 33 QT: 306 QTc: 477 Interpretive Statements ATRIAL FIBRILLATION WITH RAPID VENTRICULAR RESPONSE LOW QRS VOLTAGE POSSIBLE ANTERIOR MYOCARDIAL INFARCTION, PROBABLY OLD RATE CHANGE COMPARED TO 11/03/18 Electronically Signed on 01-14-2019 18:17:27 EST by Pako Cortés
--- NOTE | 2019-01-14 19:16 | HPEPDOC ---
[facility] Medical History & Physical Date of Admission Jan 14, 2019 Date of Service: Jan 14, 2019 Attending Physician: YESSICA ZAMARRIPA MD History and Physical TIME OF SERVICE: 8:25 PM CHIEF COMPLAINT: Abdominal pain HISTORY OF PRESENT ILLNESS: This is a 68 year old female who presents with complaints of new onset relapsing and remitting 10/10 in severity, left-sided abdominal pain associated with urinary incontinence for 3 days. She is also complaining of having fevers and chills, feeling tired and weak and has loose stools. She is unsure if there was a change in the color or the smell of her urine. REVIEW OF SYSTEMS: 12 point review of systems negative except as listed in HPI PAST MEDICAL/ SURGICAL HISTORY: Systolic and diastolic CHF. IDDM. SUZIE. Atrial fibrillation. Asthma/COPD Peptic ulcer disease. Chronic hypertension. Morbid obesity . Hypothyroidism . Large ventral hernia. status post gastric bypass. Status post right Port-A-Cath placement. SOCIAL HISTORY: She quit smoking. FAMILY HISTORY: CAD. ALLERGIES: Please see below. HOME MEDICATIONS: Please see below. PHYSICAL EXAMINATION: VITAL SIGNS: Please see below. GENERAL APPEARANCE: Well-nourished, well-developed, not in apparent distress HEENT: Normocephalic, atraumatic. Nasal cannula in place, mucous membranes moist and pink CARDIOVASCULAR: Slightly tachycardic. No murmurs, rubs or gallops. Extremity is warm and well-perfused. There is trace lower extremity edema LUNGS: There are decreased breath sounds bilaterally. She is coughing occasionally. Air entry is equal bilaterally. There are decreased breath sounds bilaterally ABDOMEN: Bowel sounds are hypoactive. There is a hernia at the left side of the abdomen abdomen is soft and nontender on palpation MUSCULOSKELETAL: Range of motion is intact in all 4 extremities INTEGUMENT: Has acanthosis nigricans NEUROLOGY: Cranial nerves II -12 are grossly intact. Speech is not dysarthric PSYCHIATRIC: Alert and oriented, able to understand and follow commands LABORATORY DATA: See below. IMAGING: Chest x-ray " Impression:Left-sided small pleural effusion and basilar air space consolidation are not excluded." MICROBIOLOGY: Please see below. ASSESSMENT: Ms. Bryson is a 68 [id number] with a past medical history of diabetes, systolic and diastolic CHF, atrial fibrillation, hypertension, asthma/COPD, and peptic ulcer disease who will be admitted for management of rapid A. fib, UTI, and mild COPD exacerbation . PLAN: 1. A. fib with RVR. Likely triggered by infection Improved after she received metoprolol tartrate Plan: Admit to medical floor/ telemetry/resume digoxin, and apixaban 2. Mild COPD/asthma exacerbation Per chart review, the patient has COPD, but the patient reports that she has asthma. The patient thinks her asthma has been triggered by stress. The chest x-ray can't rule out left-sided basilar consolidation Plan: Solu-Medrol now and switch to by mouth prednisone tomorrow with PPI/DuoNeb's every 6 hours with , levalbuterol when necessary/Follow-up respiratory panel. 3. Abdominal pain likely secondary to UTI. UA reviewed Plan: Follow up lactic acid, urine culture and blood cultures/continue ceftriaxone 4. Loose stools. Likely due to viral infection Plan: Follow-up C. difficile 5. Systolic and diastolic CHF. Clinically compensated. Reviewed recent echo report Plan: Follow-up is and os, daily weights/low salt diet/resume torsemide, metoprolol succinate, spironolactone and digoxin / for unclear reasons she is not on an ACEI, ARB or ARNI 6. IDDM Plan: Follow-up Accu-Cheks, A1c / resume detemir 30 units in the morning, 40 units at night, with sliding scale insulin and hypoglycemia protocol. She takes Trulicity on Saturdays 7. Hypothyroidism Plan: Resume levothyroxine 8. Chronic hypertension. Plan: Resume home meds 9. SUZIE / Morbid obesity She's had gastric bypass surgery She was tested for sleep apnea. Her machine is on the way Her BMI is 59.6. This complicates care Plan: can f/u w PCP for coating mixer tender consult She doesn't need DVT prophylaxis because she is on NOAC for afib Disposition likely home after more than 2 midnight stay Vital Signs Vital Signs Date Time Temp Pulse Resp B/P (MAP) Pulse Ox O2 Delivery O2 Flow Rate FiO2 01/14/19 18:15 114 01/14/19 17:45 120/79 (93) 95 Nasal Cannula 2.0 01/14/19 17:00 18 01/14/19 15:00 99.8 Laboratory Data Labs 24H Laboratory Tests 2 01/14/19 14:55: Prothrombin Time 17.0H, Prothromb Time International Ratio 1.41, Activated Part ial Thromboplast Time 27.9 01/14/19 14:56: Immature Granulocyte % (Auto) 0.4, Neutrophils (%) (Auto) 75.3H, Lymphocytes (%) (Auto) 10.8L, Monocytes (%) (Auto) 13.4H, Eosinophils (%) (Auto) 0.0, Basophils (%) (Auto) 0.1, Neutrophils # (Auto) 7.0, Lymphocytes # (Auto) 1.0L, Monocytes # (Auto) 1.2H, Eosinophils # (Auto) 0.0, Basophils # (Auto) 0.0, Nucleated Red Blood Cells % (auto) 0.0, Anion Gap 7L, Glomerular Filtration Rate 49.8, Calcium Level 8.5L, Total Bilirubin 1.2H, Aspartate Amino Transf (AST/SGOT) 18, Alanine Aminotransferase (ALT/SGPT) 18, Alkaline Phosphatase 111, Total Creatine Kinase 114, Creatine Kinase MB < 1.0, Creatine Kinase MB Relative Index 0.88, Troponin I 0.05, Total Protein 6.2L, Albumin 2.8L, Albumin/Globulin Ratio 0.82L 01/14/19 16:13: Urine Color SEA, Urine Appearance TURBIDH, Urine pH 5.0, Urine Specific [place] 1.025, Urine Protein 3+H, Urine Glucose (UA) 3+H, Urine Ketones TRACEH, Urine Blood 1+H, Urine Nitrite NEGATIVE, Urine Bilirubin 1+H, Urine Urobilinogen 4.0H, Urine Leukocyte Esterase 2+H, Urine WBC (Auto) TNTCH, Urine RBC (Auto) 20H, Urine Hyaline Casts (Auto) 0, Urine Bacteria (Auto) 3+H, Urine Squamous Epithelial Cells 1, Urine Mucus (Auto) SMALL, Urine Sperm (Auto) CBC/BMP Laboratory Tests 01/14/19 14:56 Microbiology Microbiology 01/14/19 Urine Culture, Received Pending Home Medications Scheduled Acetazolamide (Acetazolamide) 250 Mg Tablet, 250 MG PO BID 0800 AND 1600 Apixaban (Eliquis) 5 Mg Tablet, 5 MG PO BID Atorvastatin Calcium (Atorvastatin Calcium) 80 Mg Tablet, 80 MG PO QHS Cefdinir (Cefdinir) 300 Mg Capsule, 300 MG PO BID Cholecalciferol (Vitamin D3) (Vitamin D3) 1,000 Unit Capsule, 1,000 UNIT PO BID 0800 AND 1600 Digoxin (Digoxin) 125 Mcg Tablet, 125 MCG PO DAILY Dulaglutide (Trulicity) 1.5 Mg/0.5 Ml Pen.injctr, 1.5 MG SC QWEEK SATURDAYS Ferrous Gluconate (Ferrous Gluconate) 324 Mg Tablet, 324 TAB PO BID 0800 AND 1600 Fluticasone Propionate (Flovent Hfa) 110 Mcg/Act Aer.w.adap, 1 PUFF INH BID 0800 AND 1600 Folic Acid (Folic Acid) 1 Mg Tab, 2 MG PO BID 0800 AND 1600 Insulin Glargine,Hum.rec.anlog (Lantus Solostar) 100 Unit/1 Ml Insuln.pen, 30 UNIT SC QAM Insulin Glargine,Hum.rec.anlog (Lantus Solostar) 100 Unit/1 Ml Insuln.pen, 40 UNITS SC QHS Insulin Lispro (Humalog Kwikpen U-100) 100 Unit/1 Ml Insuln.pen, 1 DOSE SC AC PER SLIDING SCALE NO INSULIN IS BELOW 131 Levothyroxine Sodium (Levothyroxine Sodium) 50 Mcg Tablet, 50 MCG PO DAILY Lisinopril (Lisinopril) 5 Mg Tablet, 5 MG PO DAILY Magnesium Oxide (Magnesium Oxide) 400 Mg Tablet, 400 MG PO BID 0800 AND 1600 Metformin HCl (Metformin HCl) 1,000 Mg Tab, 1,000 MG PO BID 0800 AND 1600 Metoprolol Succinate (Metoprolol Succinate) 100 Mg Tab.er.24h, 100 MG PO DAILY Montelukast Sodium (Montelukast Sodium) 10 Mg Tab, 10 MG PO DAILY [place]-3 Fatty Acids/Fish Oil (Fish Oil 1,000 mg Capsule) 1 Each Capsule, 1,000 MG PO TID 0800, 1200, AND 1600 Omeprazole (Omeprazole) 40 Mg Capsule.dr, 40 MG PO BID 0800 AND 1600 Potassium Chloride (Potassium Chloride) 20 Meq Tab.er.prt, 20 MEQ PO DAILY Ropinirole HCl (Ropinirole HCl) 1 Mg Tab, 1 MG PO BID 0800 AND 2200 Spironolactone (Spironolactone) 25 Mg Tablet, 12.5 MG PO DAILY Torsemide (Torsemide) 10 Mg Tablet, 20 MG PO BID 0800 AND 1600 [Marijuana] CAP, 2 CAP PO TID 0800, 1600, AND 2200 Scheduled PRN Acetaminophen (Tylenol Extra Strength) 500 Mg Tablet, 2,000 MG PO DAILY PRN for HEADACHE Albuterol Sulfate (Ventolin Hfa) 18 Gm Hfa.aer.ad, 2 PUFF INH Q4H PRN for wheezing Cetirizine HCl (Cetirizine HCl) 10 Mg Tablet, 10 MG PO DAILY PRN for ALLERGY SYMPTOMS Ipratropium/Albuterol Sulfate (Iprat-Albut 0.5-3(2.5) mg/3 ml) 3 Ml Ampul.neb, 1 FAZAL INH QID PRN for SOB/WHEEZING Allergies Coded Allergies: TAPE (Verified Allergy, Intermediate, rash, 01/14/19) adhesives A-FIB/CHADSVASC A-FIB History Current/History of A-Fib/PAF?: Yes Current PO Anticoag Therapy: Yes YESSICA ZAMARRIPA MD Jan 14, 2019 19:16
[2019-01-14] MEDS ORDERED: GLUCOSE 4 GM CHEW TABLET PO PRN (19:30)
[2019-01-14] MEDS ORDERED: GLUCAGON FOR INJ 1 MG VIAL (J1610) SC PRN (19:30)
[2019-01-14] MEDS ORDERED: VENTAER INH (19:30)
[2019-01-14] MEDS ORDERED: DEXTROSE 50% 50 ML SYRINGE IV PRN (19:30)
[2019-01-14] MEDS ORDERED: ALBUTEROL 90 MCG/ACT 8GM HFA INHALER INH PRN (20:15)
[2019-01-14] MEDS ORDERED: IPRATROPIUM 0.5MG/ALBUTEROL 2.5MG INH SOL UD 3ML (DUONEB)(J7620) INH PRN (20:15)
[2019-01-14 21:00] VITALS: BP 120/58
[2019-01-14] MEDS ORDERED: LEVEMIR (INSULIN DETEMIR) 1 UNITS/0.01ML SC SCH (21:00)
[2019-01-14] MEDS ORDERED: methylPREDNISolone INJ 125 MG/2 ML VIAL (J2930) IV STA (21:10)
[2019-01-14] MEDS ORDERED: LEVALBUTEROL 1.25 MG/0.5 ML CONCENTRATE NEB INH PRN (21:15)
[2019-01-14] MEDS: rOPINIRole 1MG TAB PO SCH (21:33)
[2019-01-14] MEDS: HumaLOG INSULIN (NovoLOG) PER UNIT SC SCH (21:33)
[2019-01-14] MEDS: ATORVASTATIN 20 MG TAB PO SCH (21:33)
[2019-01-15] VITALS: BP 112/70
[2019-01-15] MEDS ORDERED: cefTRIAXone SOD 2 GM VIAL (J0696 PER 250MG) IM SCH
[2019-01-15] MEDS: IPRATROPIUM 0.5MG/ALBUTEROL 2.5MG INH SOL UD 3ML (DUONEB)(J7620) NEB SCH ×4 (01:35→20:00)
[2019-01-15 04:00] VITALS: BP 117/75
[2019-01-15] MEDS: LEVOTHYROXINE 50MCG TABLET (0.05MG) PO SCH (06:05)
[2019-01-15 06:08] LABS: HEMOGLOBIN 11.4 g/dl (12.0-15.5); MEAN CORPUSCULAR HEMOGLOBIN 28.7 pg (27.0-33.0); MEAN CORPUSCULAR HGB CONC 31.7 g/dl (32.0-36.5); MEAN CORPUSCULAR VOLUME 90.7 fl (80.0-96.0); PLATELET COUNT, AUTOMATED 180 10^3/uL (150-450); RED BLOOD COUNT 3.97 10^6/uL (4.00-5.40)
[2019-01-15 06:36] LABS: CALCIUM LEVEL 9.2 MG/DL (8.8-10.2); CREATININE FOR GFR 1.02 MG/DL (0.55-1.30); GLOMERULAR FILTRATION RATE 57.7 (>45); MAGNESIUM LEVEL 2.2 MG/DL (1.8-2.4); POTASSIUM SERUM 4.4 MEQ/L (3.5-5.1)
[2019-01-15] MEDS: HumaLOG INSULIN (NovoLOG) PER UNIT SC SCH ×4 (07:30→21:49)
[2019-01-15 08:00] VITALS: BP 103/72
[2019-01-15] MEDS ORDERED: TORSEMIDE 20 MG TAB PO SCH (08:00)
[2019-01-15] MEDS: FLUTICASONE HFA 110 MCG 12 GM INHALER (FLOVENT) INH SCH ×2 (08:13→20:45)
[2019-01-15] MEDS ORDERED: PANTOPRAZOLE 40MG TAB (PROTONIX) PO SCH (09:00)
[2019-01-15] MEDS ORDERED: LEVEMIR (INSULIN DETEMIR) 1 UNITS/0.01ML SC SCH (09:00)
[2019-01-15] MEDS ORDERED: predniSONE 20 MG TAB PO SCH (09:00)
[2019-01-15] MEDS: FOLIC ACID 1 MG TAB PO SCH ×2 (09:19→18:11)
[2019-01-15] MEDS: DIGOXIN 0.125 MG TAB PO SCH (09:21)
[2019-01-15] MEDS: rOPINIRole 1MG TAB PO SCH ×2 (09:21→21:41)
[2019-01-15] MEDS: MONTELUKAST 10 MG TAB PO SCH (09:22)
[2019-01-15] MEDS: OMEPRAZOLE 20 MG CAP PO SCH ×2 (09:22→18:11)
[2019-01-15] MEDS: APIXABAN 2.5 MG TAB (ELIQUIS) PO SCH ×2 (09:22→18:11)
[2019-01-15] MEDS: AcetaZOLAMIDE 250 MG TAB PO SCH ×2 (09:23→18:11)
[2019-01-15] MEDS: lisinopriL 5 MG TAB PO SCH (09:25)
[2019-01-15] MEDS: MAGNESIUM OXIDE 400 MG TAB (MAG-OX) PO SCH ×2 (09:25→18:11)
[2019-01-15] MEDS: FERROUS GLUCONATE 324 MG TAB PO SCH ×2 (09:26→18:11)
[2019-01-15] MEDS: SPIRONOLACTONE 12.5MG PER 1/2 TABLET PO SCH (09:26)
[2019-01-15] MEDS: METOPROLOL SUCC (TopROL XL) 100MG *XL* TAB PO SCH (09:27)
[2019-01-15] MEDS: POTASSIUM CHLORIDE 10 MEQ SR TABLET PO SCH (09:28)
[2019-01-15 12:00] VITALS: BP 99/69
--- NOTE | 2019-01-15 13:54 | IPNPDOC ---
Subjective Date Seen The patient was seen on 01/15/19. Subjective Chief Complaint/HPI Feels a little better today. Had a good appetite this morning and ate good breakfast, No dysuria, denies any sob or wheezing. No chest pain, no abdominal pain , no nausea or vomiting. Objective Physical Examination General Exam: Positive: Alert, Cooperative, No Acute Distress Eye Exam: Positive: PERRLA, Conjunctiva & lids normal, EOMI; Negative: Sclera icteric ENT Exam: Positive: Atraumatic, Mucous membr. moist/pink, Pharynx Normal Neck Exam: Positive: Supple; Negative: JVD, thyromegaly Chest Exam: Positive: Diminished, Other (basal crackles) Heart Exam: Positive: Tachycardic, Irregular Rhythm, Normal S1, Normal S2; Negative: Gallops, Murmurs, Rubs Abdomen Exam: Positive: Normal bowel sounds, Soft, Hernia; Negative: Tenderness, Hepatospenomegaly Extremity Exam: Negative: Clubbing, Cyanosis, Edema Skin Exam: Positive: Nl turgor and temperature; Negative: Rash, Breakdown Assessment /Plan Assessment 68 [id number] with a past medical history of diabetes, systolic and diastolic CHF, atrial fibrillation, hypertension, asthma/COPD, and peptic ulcer disease Systolic and diastolic CHF, SUZIE, Morbid obesity s/p gastric bypass, Chronic respiratory failure with hypoxia, Hypothyroidism , Large ventral hernia wit multiple revision surgeries and mesh placement, Status post right Port-A-Cath placement who presented to the ED for urinary incontinence, abdominal pain, chi lls and fever at home and weakness for 3 days. She also complained of sore throat. She was found to have admitted for management of rapid A. fib with RVR , UTI, and mild COPD exacerbation . A. fib with RVR. Likely triggered by infection continue digoxin, metoprolol, eliquis. COPD/Asthma exacerbation now resolved. Per chart review, the patient has COPD, but the patient reports that she has a sthma. The patient thinks her asthma has been triggered by stress. The chest x-ray can't rule out left-sided basilar consolidation will reduce dose of prednisone UTI culture pending continue ceftriaxone Systolic and diastolic CHF. Clinically compensated. Reviewed recent echo report daily weights/low salt diet/resume torsemide, metoprolol succinate, spironolactone and digoxin / for unclear reasons she is not on an ACEI, ARB or ARNI IDDM uncontrolled will increase levemir and continue Lispro. Hypothyroidism levothyroxine Chronic hypertension. home meds SUZIE / Morbid obesity She's had gastric bypass surgery She was tested for sleep apnea. Her machine is on the way Her BMI is 59.6. This complicates care Chronic respiratory failure with hypoxia has home oxygen. Plan/VTE VTE Prophylaxis Ordered?: Yes VS, I&O, 24H, Fishbone Vital Signs/I&O Vital Signs Date Time Temp Pulse Resp B/P (MAP) Pulse Ox O2 Delivery O2 Flow Rate FiO2 01/15/19 04:00 2.0 01/15/19 04:00 98.2 85 18 117/75 (89) 96 Nasal Cannula I&O- Last 24 Hours up to 6 AM 01/15/19 06:00 Intake Total 0 ml Output Total 0 ml Balance 0 ml Laboratory Data 24H LABS Laboratory Tests 2 01/14/19 14:55: Prothrombin Time 17.0H, Prothromb Time International Ratio 1.41, Activated Partial Thromboplast Time 27.9 01/14/19 14:56: Immature Granulocyte % (Auto) 0.4, Neutrophils (%) (Auto) 75.3H, Lymphocytes (%) (Auto) 10.8L, Monocytes (%) (Auto) 13.4H, Eosinophils (%) (Auto) 0.0, Basophils (%) (Auto) 0.1, Neutrophils # (Auto) 7.0, Lymphocytes # (Auto) 1.0L, Monocytes # (Auto) 1.2H, Eosinophils # (Auto) 0.0, Basophils # (Auto) 0.0, Nucleated Red Blood Cells % (auto) 0.0, Anion Gap 7L, Glomerular Filtration Rate 49.8, Calcium Level 8.5L, Total Bilirubin 1.2H, Aspartate Amino Transf (AST/SGOT) 18, Alanine Aminotransferase (ALT/SGPT) 18, Alkaline Phosphatase 111, Total Creatine Kinase 114, Creatine Kinase MB < 1.0, Creatine Kinase MB Relative Index 0.88, Troponin I 0.05, Total Protein 6.2L, Albumin 2.8L, Albumin/Globulin Ratio 0.82L 01/14/19 16:13: Urine Color SEA, Urine Appearance TURBIDH, Urine pH 5.0, Urine Specific Spencer 1.025, Urine Protein 3+H, Urine Glucose (UA) 3+H, Urine Ketones TRACEH, Urine Blood 1+H, Urine Nitrite NEGATIVE, Urine Bilirubin 1+H, Urine Urobilinogen 4.0H, Urine Leukocyte Esterase 2+H, Urine WBC (Auto) TNTCH, Urine RBC (Auto) 20H, Urine Hyaline Casts (Auto) 0, Urine Bacteria (Auto) 3+H, Urine Squamous Epithelial Cells 1, Urine Mucus (Auto) SMALL, Urine Sperm (Auto) 01/14/19 21:22: Bedside Glucose (Misc Panel) 283H 01/15/19 05:41: Nucleated Red Blood Cells % (auto) 0.0, Anion Gap 6L, Glomerular Filtration Rate 57.7, Calcium Level 9.2, Magnesium Level 2.2 CBC/BMP Laboratory Tests 01/14/19 14:56 01/15/19 05:41 Microbiology Microbiology 01/14/19 Urine Culture, Received Pending VAN ROCHA MD Jan 15, 2019 07:45
[2019-01-15 16:00] VITALS: BP 90/54
[2019-01-15 20:00] VITALS: BP 124/60
[2019-01-15] MEDS: ATORVASTATIN 20 MG TAB PO SCH (21:41)
[2019-01-15] MEDS: cefTRIAXone SOD 1 GM in D5W MINI-BAG PLUS 50 ML IV SCH (21:41)
[2019-01-15] MEDS: LEVEMIR (INSULIN DETEMIR) 1 UNITS/0.01ML SC SCH (21:42)
[2019-01-16] VITALS: BP 104/53
[2019-01-16] MEDS: IPRATROPIUM 0.5MG/ALBUTEROL 2.5MG INH SOL UD 3ML (DUONEB)(J7620) NEB SCH ×4 (02:03→18:02)
[2019-01-16 04:00] VITALS: BP 96/53
[2019-01-16] MEDS: LEVOTHYROXINE 50MCG TABLET (0.05MG) PO SCH (06:29)
[2019-01-16 08:00] VITALS: BP 123/77
[2019-01-16] MEDS: FLUTICASONE HFA 110 MCG 12 GM INHALER (FLOVENT) INH SCH ×2 (08:36→18:02)
[2019-01-16] MEDS ORDERED: predniSONE 20 MG TAB PO SCH (09:00)
[2019-01-16] MEDS ORDERED: predniSONE 10 MG TAB PO SCH (09:00)
[2019-01-16] MEDS ORDERED: TRULICITY 1.5 MG SC SCH (09:00)
[2019-01-16] MEDS ORDERED: PREVNAR 13 VACCINE SYRINGE (CPT CODE:90670) IM ONE (09:00)
[2019-01-16] MEDS: lisinopriL 5 MG TAB PO SCH ×2 (09:00→09:20)
[2019-01-16] MEDS: HumaLOG INSULIN (NovoLOG) PER UNIT SC SCH ×4 (09:17→21:00)
[2019-01-16] MEDS: LEVEMIR (INSULIN DETEMIR) 1 UNITS/0.01ML SC SCH ×2 (09:18→20:59)
[2019-01-16] MEDS: OMEPRAZOLE 20 MG CAP PO SCH ×2 (09:19→17:44)
[2019-01-16] MEDS: MAGNESIUM OXIDE 400 MG TAB (MAG-OX) PO SCH ×2 (09:19→17:44)
[2019-01-16] MEDS: AcetaZOLAMIDE 250 MG TAB PO SCH ×2 (09:19→17:43)
[2019-01-16] MEDS: FOLIC ACID 1 MG TAB PO SCH ×2 (09:20→17:43)
[2019-01-16] MEDS: DIGOXIN 0.125 MG TAB PO SCH (09:21)
[2019-01-16] MEDS: POTASSIUM CHLORIDE 10 MEQ SR TABLET PO SCH (09:21)
[2019-01-16] MEDS: rOPINIRole 1MG TAB PO SCH ×2 (09:21→21:00)
[2019-01-16] MEDS: APIXABAN 2.5 MG TAB (ELIQUIS) PO SCH ×2 (09:21→17:43)
[2019-01-16] MEDS: FERROUS GLUCONATE 324 MG TAB PO SCH ×2 (09:21→17:43)
[2019-01-16] MEDS: METOPROLOL SUCC (TopROL XL) 100MG *XL* TAB PO SCH (09:22)
[2019-01-16] MEDS: MONTELUKAST 10 MG TAB PO SCH (09:22)
[2019-01-16] MEDS: SPIRONOLACTONE 12.5MG PER 1/2 TABLET PO SCH (09:23)
--- NOTE | 2019-01-16 11:33 | IPNPDOC ---
Subjective Date Seen The patient was seen on 01/16/19. Subjective Chief Complaint/HPI feels much better today. says her sensation of the bladder is coming back . She has an external female cath in place. No fever or chills no chest pain r sob , no abdominal pain nausea or vomiting or diarrhea. Objective Physical Examination General Exam: Positive: Alert, Cooperative, No Acute Distress Eye Exam: Positive: PERRLA, Conjunctiva & lids normal, EOMI; Negative: Sclera icteric ENT Exam: Positive: Atraumatic, Mucous membr. moist/pink, Pharynx Normal Neck Exam: Positive: Supple; Negative: JVD, thyromegaly Chest Exam: Positive: Diminished, Other (basal crackles) Heart Exam: Positive: Tachycardic, Irregular Rhythm, Normal S1, Normal S2; Negative: Gallops, Murmurs, Rubs Abdomen Exam: Positive: Normal bowel sounds, Soft, Hernia; Negative: Tenderness, Hepatospenomegaly Extremity Exam: Negative: Clubbing, Cyanosis, Edema Skin Exam: Positive: Nl turgor and temperature; Negative: Rash, Breakdown Assessment /Plan Assessment 68 [id number] with a past medical history of diabetes, systolic and diastolic CHF, atrial fibrillation, hypertension, asthma/COPD, and peptic ulcer disease Systolic and diastolic CHF, SUZIE, Morbid obesity s/p gastric bypass, Chronic respiratory failure with hypoxia, Hypothyroidism , Large ventral hernia wit multiple revision surgeries and mesh placement, Status post right Port-A-Cath placement who presented to the ED for urinary incontinence, abdominal pain, chills and fever at home and weakness for 3 days. She also complained of sore throat. She was found to have admitted for management of rapid A. fib with RVR , UTI, and mild COPD exacerbation . A. fib with RVR. rate better controlled. Likely triggered by infection continue digoxin, metoprolol, eliquis. COPD/Asthma exacerbation now resolved. Per chart review, the patient has COPD, but the patient reports that she has asthma. The patient thinks her asthma has been triggered by stress. The chest x-ray can't rule out left-sided basilar consolidation. this is going to be covered by ceftriaxone. will reduce dose of prednisone UTI E coli in culture continue ceftriaxone for now will change to levofloxacin on discharge. Systolic and diastolic CHF. Clinically compensated. Reviewed recent echo report daily weights/low salt diet/resume torsemide, metoprolol succinate, spironolactone and digoxin / for unclear reasons she is not on an ACEI, ARB or ARNI IDDM better controlled this am after increasing the long acting insulin dosage will increase levemir and continue Lispro. Hypothyroidism levothyroxine Chronic hypertension. home meds with hold parameters as BP has been soft in hospital. SUZIE / Morbid obesity / huge abdominal wall hernia. She's had gastric bypass surgery She was tested for sleep apnea. Her machine is on the way Her BMI is 59.6. This complicates care Chronic respiratory failure with hypoxia has home oxygen. Plan/VTE VTE Prophylaxis Ordered?: Yes VS, I&O, 24H, Fishbone Vital Signs/I&O Vital Signs Date Time Temp Pulse Resp B/P (MAP) Pulse Ox O2 Delivery O2 Flow Rate FiO2 01/16/19 09:22 100 123/77 01/16/19 08:00 2.0 01/16/19 08:00 97.4 18 97 Nasal Cannula I&O- Last 24 Hours up to 6 AM 01/16/19 06:00 Intake Total 1000 ml Output Total 1900 ml Balance -900 ml Laboratory Data 24H LABS Laboratory Tests 2 01/15/19 11:54: Bedside Glucose (Misc Panel) 380H 01/15/19 17:17: Bedside Glucose (Misc Panel) 368H 01/15/19 21:40: Bedside Glucose (Misc Panel) 362H 01/16/19 07:47: Bedside Glucose (Misc Panel) 241H Microbiology Microbiology 01/15/19 Respiratory Virus Panel (PCR) ([facility]) - Final, Complete 01/14/19 Urine Culture - Final, Complete Escherichia Coli VAN ROCHA MD Jan 16, 2019 11:33
[2019-01-16 12:20] VITALS: BP 99/66
[2019-01-16 14:00] VITALS: BP 93/55
[2019-01-16] MEDS: cefTRIAXone SOD 1 GM in D5W MINI-BAG PLUS 50 ML IV SCH (20:18)
[2019-01-16] MEDS: ATORVASTATIN 20 MG TAB PO SCH (20:58)
[2019-01-16 22:00] VITALS: BP 98/56
[2019-01-16 22:19] LABS: CLOSTRIDIUM DIFFICILE PCR NEGATIVE (NEGATIVE)
[2019-01-17] MEDS: IPRATROPIUM 0.5MG/ALBUTEROL 2.5MG INH SOL UD 3ML (DUONEB)(J7620) NEB SCH ×4 (02:03→19:48)
[2019-01-17] MEDS: LEVOTHYROXINE 50MCG TABLET (0.05MG) PO SCH (05:32)
[2019-01-17 06:42] LABS: BASO % 0.1 % (0.0-1.0); EOS # 0.1 10^3/uL (0.0-0.5); EOS % 0.7 % (0.0-3.0); HEMATOCRIT 38.9 % (36.0-47.0); HEMOGLOBIN 11.6 g/dl (12.0-15.5); LYMPH # 1.8 10^3/uL (1.5-5.0); MEAN CORPUSCULAR HEMOGLOBIN 28.1 pg (27.0-33.0); MEAN CORPUSCULAR HGB CONC 29.8 g/dl (32.0-36.5); MEAN CORPUSCULAR VOLUME 94.2 fl (80.0-96.0); MONO # 0.7 10^3/uL (0.0-0.8); NEUTROPHILS # 6.5 10^3/uL (1.5-8.5); NEUTROPHILS % 70.3 % (36.0-66.0); PLATELET COUNT, AUTOMATED 248 10^3/uL (150-450); RED BLOOD COUNT 4.13 10^6/uL (4.00-5.40); WHITE BLOOD COUNT 9.2 10^3/uL (4.0-10.0)
[2019-01-17 06:52] LABS: BLOOD UREA NITROGEN 34 MG/DL (7-18); CALCIUM LEVEL 8.6 MG/DL (8.8-10.2); CARBON DIOXIDE LEVEL 29 MEQ/L (21-32); CHLORIDE LEVEL 106 MEQ/L (98-107); CREATININE FOR GFR 0.71 MG/DL (0.55-1.30); GLOMERULAR FILTRATION RATE > 60.0 (>45); GLUCOSE, FASTING 99 MG/DL (70-100); POTASSIUM SERUM 4.6 MEQ/L (3.5-5.1); SODIUM LEVEL 140 MEQ/L (136-145)
[2019-01-17] MEDS: HumaLOG INSULIN (NovoLOG) PER UNIT SC SCH ×4 (07:30→21:00)
[2019-01-17] MEDS: FLUTICASONE HFA 110 MCG 12 GM INHALER (FLOVENT) INH SCH ×2 (07:38→16:00)
[2019-01-17] MEDS: LEVEMIR (INSULIN DETEMIR) 1 UNITS/0.01ML SC SCH ×2 (08:38→21:18)
[2019-01-17] MEDS: METOPROLOL SUCC (TopROL XL) 100MG *XL* TAB PO SCH (08:39)
[2019-01-17] MEDS: lisinopriL 5 MG TAB PO SCH (08:39)
[2019-01-17] MEDS: POTASSIUM CHLORIDE 10 MEQ SR TABLET PO SCH (08:40)
[2019-01-17] MEDS: FERROUS GLUCONATE 324 MG TAB PO SCH ×2 (08:40→15:19)
[2019-01-17] MEDS: predniSONE 5 MG TAB PO SCH (08:40)
[2019-01-17] MEDS: MAGNESIUM OXIDE 400 MG TAB (MAG-OX) PO SCH ×2 (08:40→15:19)
[2019-01-17] MEDS: rOPINIRole 1MG TAB PO SCH ×2 (08:40→21:18)
[2019-01-17] MEDS: OMEPRAZOLE 20 MG CAP PO SCH ×2 (08:40→15:19)
[2019-01-17] MEDS: FOLIC ACID 1 MG TAB PO SCH ×2 (08:40→15:19)
[2019-01-17] MEDS: DIGOXIN 0.125 MG TAB PO SCH (08:41)
[2019-01-17] MEDS: AcetaZOLAMIDE 250 MG TAB PO SCH ×2 (08:41→15:19)
[2019-01-17] MEDS: MONTELUKAST 10 MG TAB PO SCH (08:41)
[2019-01-17] MEDS: APIXABAN 2.5 MG TAB (ELIQUIS) PO SCH ×2 (08:41→15:19)
[2019-01-17] MEDS: SPIRONOLACTONE 12.5MG PER 1/2 TABLET PO SCH (08:42)
[2019-01-17 14:00] VITALS: BP 98/73
[2019-01-17] MEDS: ACETAMINOPHEN TAB 650MG DOSE (2X325MG) PO PRN ×2 (15:20→20:23)
--- NOTE | 2019-01-17 16:16 | IPNPDOC ---
Subjective Date Seen The patient was seen on 01/17/19. Subjective Chief Complaint/HPI Feeling much better. Sitting up in chair. Using the bedside commode. No fever or chills, no chest pain , no abdominal pain , no diarrhea. Says her bladder sensation is coming back Objective Physical Examination General Exam: Positive: Alert, Cooperative, No Acute Distress Eye Exam: Positive: PERRLA, Conjunctiva & lids normal, EOMI; Negative: Sclera icteric ENT Exam: Positive: Atraumatic, Mucous membr. moist/pink, Pharynx Normal Neck Exam: Positive: Supple; Negative: JVD, thyromegaly Chest Exam: Positive: Diminished, Other (basal crackles) Heart Exam: Positive: Tachycardic, Irregular Rhythm, Normal S1, Normal S2; Negative: Gallops, Murmurs, Rubs Abdomen Exam: Positive: Normal bowel sounds, Soft, Hernia; Negative: Tenderness, Hepatospenomegaly Extremity Exam: Negative: Clubbing, Cyanosis, Edema Skin Exam: Positive: Nl turgor and temperature; Negative: Rash, Breakdown Assessment /Plan Assessment 68 [id number] with a past medical history of diabetes, systolic and diastolic CHF, atrial fibrillation, hypertension, asthma/COPD, and peptic ulcer disease Systolic and diastolic CHF, SUZIE, Morbid obesity s/p gastric bypass, Chronic respiratory failure with hypoxia, Hypothyroidism , Large ventral hernia wit multiple revision surgeries and mesh placement, Status post right Port-A-Cath placement who presented to the ED for urinary incontinence, abdominal pain, chills and fever at home and weakness for 3 days. She also complained of sore throat. She was found to have admitted for management of rapid A. fib with RVR , UTI, and mild COPD exacerbation . A. fib with RVR. rate better controlled. Likely triggered by infection continue digoxin, metoprolol, eliquis. COPD/Asthma exacerbation now resolved. Per chart review, the patient has COPD, but the patient reports that she has asthma. The patient thinks her asthma has been triggered by stress. The chest x-ray can't rule out left-sided basilar consolidation. this is going to be covered by ceftriaxone. will reduce dose of prednisone UTI E coli in culture continue ceftriaxone for now will change to levofloxacin on discharge. Systolic and diastolic CHF. Clinically compensated. Reviewed recent echo report daily weights/low salt diet/resume torsemide, metoprolol succinate, spironolactone and digoxin / for unclear reasons she is not on an ACEI, ARB or ARNI IDDM better controlled this am after increasing the long acting insulin dosage continue levemir and continue Lispro. Hypothyroidism levothyroxine Chronic hypertension. home meds with hold parameters as BP has been soft in hospital. SUZIE / Morbid obesity / huge abdominal wall hernia. She's had gastric bypass surgery She was tested for sleep apnea. Her machine is on the way Her BMI is 59.6. This complicates care Chronic respiratory failure with hypoxia has home oxygen. Plan/VTE VTE Prophylaxis Ordered?: Yes VS, I&O, 24H, Fishbone Vital Signs/I&O Vital Signs Date Time Temp Pulse Resp B/P (MAP) Pulse Ox O2 Delivery O2 Flow Rate FiO2 01/17/19 14:00 97.7 96 18 98/73 (81) 98 Nasal Cannula 3.0 I&O- Last 24 Hours up to 6 AM 01/17/19 06:00 Intake Total 660 ml Output Total 250 ml Balance 410 ml Laboratory Data 24H LABS Laboratory Tests 2 01/16/19 17:28: Bedside Glucose (Misc Panel) 255H 01/16/19 19:48: Bedside Glucose (Misc Panel) 253H 01/16/19 21:05: Clostridium difficile [id number] PRESUMPTIVE NEGATIVE, Clostridium difficile Toxin (PCR) NEGATIVE 01/17/19 05:33: Immature Granulocyte % (Auto) 0.9, Neutrophils (%) (Auto) 70.3H, Lymphocytes (%) (Auto) 20.0L, Monocytes (%) (Auto) 8.0H, Eosinophils (%) (Auto) 0.7, Basophils (%) (Auto) 0.1, Neutrophils # (Auto) 6.5, Lymphocytes # (Auto) 1.8, Monocytes # (Auto) 0.7, Eosinophils # (Auto) 0.1, Basophils # (Auto) 0.0, Nucleated Red Blood Cells % (auto) 0.0, Anion Gap 5L, Glomerular Filtration Rate > 60.0, Calcium Level 8.6L 01/17/19 11:53: Bedside Glucose (Misc Panel) 184H CBC/BMP Laboratory Tests 01/17/19 05:33 Microbiology Microbiology 01/15/19 Respiratory Virus Panel (PCR) ([facility]) - Final, Complete 01/14/19 Urine Culture - Final, Complete Escherichia Coli VAN ROCHA MD Jan 17, 2019 16:16
[2019-01-17] MEDS: LIDOCAINE 5% (LIDODERM) PATCH TD SCH ×2 (16:23)
[2019-01-17] MEDS: cefTRIAXone SOD 1 GM in D5W MINI-BAG PLUS 50 ML IV SCH (20:20)
[2019-01-17] MEDS: **NOTE PATIENT COMMENT** MISC XX SCH ×2 (21:18)
[2019-01-17] MEDS: ATORVASTATIN 20 MG TAB PO SCH (21:18)
[2019-01-17 22:00] VITALS: BP 99/72
[2019-01-18] MEDS: ACETAMINOPHEN TAB 650MG DOSE (2X325MG) PO PRN ×3 (01:36→15:36)
[2019-01-18] MEDS: IPRATROPIUM 0.5MG/ALBUTEROL 2.5MG INH SOL UD 3ML (DUONEB)(J7620) NEB SCH ×4 (01:50→20:00)
[2019-01-18] MEDS: LEVOTHYROXINE 50MCG TABLET (0.05MG) PO SCH (05:31)
[2019-01-18 06:00] VITALS: BP 90/53
[2019-01-18 06:05] LABS: BASO % 0.2 % (0.0-1.0); EOS # 0.1 10^3/uL (0.0-0.5); HEMATOCRIT 36.7 % (36.0-47.0); HEMOGLOBIN 11.2 g/dl (12.0-15.5); LYMPH # 1.7 10^3/uL (1.5-5.0); LYMPH % 18.3 % (24.0-44.0); MEAN CORPUSCULAR HEMOGLOBIN 28.2 pg (27.0-33.0); MEAN CORPUSCULAR HGB CONC 30.5 g/dl (32.0-36.5); MEAN CORPUSCULAR VOLUME 92.4 fl (80.0-96.0); MONO # 0.7 10^3/uL (0.0-0.8); NEUTROPHILS # 6.9 10^3/uL (1.5-8.5); NEUTROPHILS % 72.7 % (36.0-66.0); PLATELET COUNT, AUTOMATED 252 10^3/uL (150-450); RED BLOOD COUNT 3.97 10^6/uL (4.00-5.40); WHITE BLOOD COUNT 9.5 10^3/uL (4.0-10.0)
[2019-01-18 06:31] LABS: BLOOD UREA NITROGEN 22 MG/DL (7-18); CALCIUM LEVEL 8.6 MG/DL (8.8-10.2); CARBON DIOXIDE LEVEL 31 MEQ/L (21-32); CHLORIDE LEVEL 107 MEQ/L (98-107); CREATININE FOR GFR 0.62 MG/DL (0.55-1.30); GLOMERULAR FILTRATION RATE > 60.0 (>45); GLUCOSE, FASTING 141 MG/DL (70-100); POTASSIUM SERUM 3.6 MEQ/L (3.5-5.1); SODIUM LEVEL 141 MEQ/L (136-145)
[2019-01-18] MEDS: FLUTICASONE HFA 110 MCG 12 GM INHALER (FLOVENT) INH SCH ×2 (07:44→16:00)
[2019-01-18] MEDS: HumaLOG INSULIN (NovoLOG) PER UNIT SC SCH ×4 (09:47→21:00)
[2019-01-18] MEDS: LEVEMIR (INSULIN DETEMIR) 1 UNITS/0.01ML SC SCH ×2 (09:47→21:20)
[2019-01-18] MEDS: SPIRONOLACTONE 12.5MG PER 1/2 TABLET PO SCH (09:48)
[2019-01-18] MEDS: FOLIC ACID 1 MG TAB PO SCH ×2 (09:49→15:35)
[2019-01-18] MEDS: MAGNESIUM OXIDE 400 MG TAB (MAG-OX) PO SCH ×2 (09:49→15:35)
[2019-01-18] MEDS: rOPINIRole 1MG TAB PO SCH ×2 (09:49→21:19)
[2019-01-18] MEDS: predniSONE 5 MG TAB PO SCH (09:50)
[2019-01-18] MEDS: POTASSIUM CHLORIDE 10 MEQ SR TABLET PO SCH (09:50)
[2019-01-18] MEDS: lisinopriL 5 MG TAB PO SCH (09:50)
[2019-01-18] MEDS: APIXABAN 2.5 MG TAB (ELIQUIS) PO SCH ×2 (09:51→15:36)
[2019-01-18] MEDS: DIGOXIN 0.125 MG TAB PO SCH (09:51)
[2019-01-18] MEDS: FERROUS GLUCONATE 324 MG TAB PO SCH ×2 (09:51→15:35)
[2019-01-18] MEDS: OMEPRAZOLE 20 MG CAP PO SCH ×2 (09:51→15:35)
[2019-01-18] MEDS: METOPROLOL SUCC (TopROL XL) 100MG *XL* TAB PO SCH (09:51)
[2019-01-18] MEDS: MONTELUKAST 10 MG TAB PO SCH (09:51)
[2019-01-18] MEDS: AcetaZOLAMIDE 250 MG TAB PO SCH ×2 (09:52→15:36)
[2019-01-18] MEDS: LIDOCAINE 5% (LIDODERM) PATCH TD SCH ×2 (09:52)
[2019-01-18 14:00] VITALS: BP 111/62
--- NOTE | 2019-01-18 14:01 | IPNPDOC ---
Subjective Date Seen The patient was seen on 01/18/19. Subjective Chief Complaint/HPI feeling good this morning had worked with PT and OT. No dysuria or urivary incontinence any more. No fever or chills, no chest pain or sob. Objective Physical Examination General Exam: Positive: Alert, Cooperative, No Acute Distress Eye Exam: Positive: PERRLA, Conjunctiva & lids normal, EOMI; Negative: Sclera icteric ENT Exam: Positive: Atraumatic, Mucous membr. moist/pink, Pharynx Normal Neck Exam: Positive: Supple; Negative: JVD, thyromegaly Chest Exam: Positive: Diminished, Other (basal crackles) Heart Exam: Positive: Tachycardic, Irregular Rhythm, Normal S1, Normal S2; Negative: Gallops, Murmurs, Rubs Abdomen Exam: Positive: Normal bowel sounds, Soft, Hernia; Negative: Tenderness, Hepatospenomegaly Extremity Exam: Negative: Clubbing, Cyanosis, Edema Skin Exam: Positive: Nl turgor and temperature; Negative: Rash, Breakdown Assessment /Plan Assessment 68 [id number] with a past medical history of diabetes, systolic and diastolic CHF, atrial fibrillation, hypertension, asthma/COPD, and peptic ulcer disease Systolic and diastolic CHF, SUZIE, Morbid obesity s/p gastric bypass, Chronic respiratory failure with hypoxia, Hypothyroidism , Large ventral hernia wit m ultiple revision surgeries and mesh placement, Status post right Port-A-Cath placement who presented to the ED for urinary incontinence, abdominal pain, chills and fever at home and weakness for 3 days. She also complained of sore throat. She was found to have admitted for management of rapid A. fib with RVR , UTI, and mild COPD exacerbation . A. fib with RVR. rate better controlled. Likely triggered by infection continue digoxin, metoprolol, eliquis. COPD/Asthma exacerbation now resolved. Per chart review, the patient has COPD, but the patient reports that she has asthma. The patient thinks her asthma has been triggered by stress. The chest x-ray can't rule out left-sided basilar consolidation. this is going to be covered by ceftriaxone. will reduce dose of prednisone UTI E coli in culture will change to cefdinir from ceftriaxone. Systolic and diastolic CHF. Clinically compensated. Reviewed recent echo report daily weights/low salt diet/resume torsemide, metoprolol succinate, spironolactone and digoxin / for unclear reasons she is not on an ACEI, ARB or ARNI IDDM better controlled this am after increasing the long acting insulin dosage continue levemir and continue Lispro. Hypothyroidism levothyroxine Chronic hypertension. home meds with hold parameters as BP has been soft in hospital. SUZIE / Morbid obesity / huge abdominal wall hernia. She's had gastric bypass surgery She was tested for sleep apnea. Her machine is on the way Her BMI is 59.6. This complicates care Chronic respiratory failure with hypoxia has home oxygen. Disposition: Home with services in the next 24 hours after cleared by PT and OT. Plan/VTE VTE Prophylaxis Ordered?: Yes VS, I&O, 24H, Fishbone Vital Signs/I&O Vital Signs Date Time Temp Pulse Resp B/P (MAP) Pulse Ox O2 Delivery O2 Flow Rate FiO2 01/18/19 09:51 121 148/75 01/18/19 09:00 2.0 01/18/19 06:00 97.3 18 97 Nasal Cannula I&O- Last 24 Hours up to 6 AM 01/18/19 06:00 Intake Total 1500 ml Output Total 150 ml Balance 1350 ml Laboratory Data 24H LABS Laboratory Tests 2 01/17/19 16:34: Bedside Glucose (Misc Panel) 191H 01/17/19 20:59: Bedside Glucose (Misc Panel) 206H 01/18/19 05:18: Immature Granulocyte % (Auto) 0.8, Neutrophils (%) (Auto) 72.7H, Lymphocytes (%) (Auto) 18.3L, Monocytes (%) (Auto) 7.0H, Eosinophils (%) (Auto) 1.0, Basophils (%) (Auto) 0.2, Neutrophils # (Auto) 6.9, Lymphocytes # (Auto) 1.7, Monocytes # (Auto) 0.7, Eosinophils # (Auto) 0.1, Basophils # (Auto) 0.0, Nucleated Red Blood Cells % (auto) 0.0, Anion Gap 3L, Glomerular Filtration Rate > 60.0, Calcium Level 8.6L 01/18/19 11:53: Bedside Glucose (Misc Panel) 214H CBC/BMP Laboratory Tests 01/18/19 05:18 Microbiology Microbiology 01/15/19 Respiratory Virus Panel (PCR) ([facility]) - Final, Complete 01/14/19 Urine Culture - Final, Complete Escherichia Coli VAN ROCHA MD Jan 18, 2019 14:01
[2019-01-18] MEDS: CEFDINIR 300 MG CAP (OMNICEF) PO SCH (21:19)
[2019-01-18] MEDS: ATORVASTATIN 20 MG TAB PO SCH (21:20)
[2019-01-18] MEDS: **NOTE PATIENT COMMENT** MISC XX SCH ×2 (21:21)
[2019-01-18 22:00] VITALS: BP 100/60
[2019-01-19] MEDS: IPRATROPIUM 0.5MG/ALBUTEROL 2.5MG INH SOL UD 3ML (DUONEB)(J7620) NEB SCH ×2 (01:10→07:38)
[2019-01-19] MEDS: ACETAMINOPHEN TAB 650MG DOSE (2X325MG) PO PRN (01:45)
[2019-01-19] MEDS: LEVOTHYROXINE 50MCG TABLET (0.05MG) PO SCH (05:50)
[2019-01-19 06:00] VITALS: BP 126/67
[2019-01-19 06:22] LABS: BASO % 0.2 % (0.0-1.0); EOS # 0.2 10^3/uL (0.0-0.5); EOS % 1.4 % (0.0-3.0); HEMATOCRIT 40.8 % (36.0-47.0); HEMOGLOBIN 12.5 g/dl (12.0-15.5); LYMPH # 2.2 10^3/uL (1.5-5.0); LYMPH % 17.1 % (24.0-44.0); MEAN CORPUSCULAR HEMOGLOBIN 28.7 pg (27.0-33.0); MEAN CORPUSCULAR HGB CONC 30.6 g/dl (32.0-36.5); MEAN CORPUSCULAR VOLUME 93.8 fl (80.0-96.0); MONO # 0.7 10^3/uL (0.0-0.8); MONO % 5.7 % (0.0-5.0); NEUTROPHILS # 9.7 10^3/uL (1.5-8.5); NEUTROPHILS % 74.8 % (36.0-66.0); PLATELET COUNT, AUTOMATED 379 10^3/uL (150-450); RED BLOOD COUNT 4.35 10^6/uL (4.00-5.40)
[2019-01-19 06:45] LABS: BLOOD UREA NITROGEN 19 MG/DL (7-18); CALCIUM LEVEL 8.8 MG/DL (8.8-10.2); CARBON DIOXIDE LEVEL 29 MEQ/L (21-32); CHLORIDE LEVEL 107 MEQ/L (98-107); CREATININE FOR GFR 0.63 MG/DL (0.55-1.30); GLOMERULAR FILTRATION RATE > 60.0 (>45); GLUCOSE, FASTING 127 MG/DL (70-100); SODIUM LEVEL 140 MEQ/L (136-145)
[2019-01-19] MEDS: FLUTICASONE HFA 110 MCG 12 GM INHALER (FLOVENT) INH SCH (07:38)
[2019-01-19] MEDS: HumaLOG INSULIN (NovoLOG) PER UNIT SC SCH ×2 (07:48→12:00)
[2019-01-19] MEDS: rOPINIRole 1MG TAB PO SCH (07:49)
[2019-01-19] MEDS: FOLIC ACID 1 MG TAB PO SCH (07:49)
[2019-01-19] MEDS: OMEPRAZOLE 20 MG CAP PO SCH (07:49)
[2019-01-19] MEDS: FERROUS GLUCONATE 324 MG TAB PO SCH (07:49)
[2019-01-19] MEDS: APIXABAN 2.5 MG TAB (ELIQUIS) PO SCH (07:49)
[2019-01-19] MEDS: AcetaZOLAMIDE 250 MG TAB PO SCH (07:49)
[2019-01-19] MEDS: MAGNESIUM OXIDE 400 MG TAB (MAG-OX) PO SCH (07:49)
[2019-01-19 09:00] VITALS: BP 113/75
[2019-01-19] MEDS: lisinopriL 5 MG TAB PO SCH (09:00)
[2019-01-19] MEDS: SPIRONOLACTONE 12.5MG PER 1/2 TABLET PO SCH (09:00)
[2019-01-19] MEDS ORDERED: CEFD300CAP PO (09:37)
[2019-01-19] MEDS ORDERED: ELIQ5TAB PO ×2 (09:40→09:41)
[2019-01-19] MEDS: CEFDINIR 300 MG CAP (OMNICEF) PO SCH (10:06)
[2019-01-19] MEDS: predniSONE 5 MG TAB PO SCH (10:06)
[2019-01-19 10:07] VITALS: BP 113/75
[2019-01-19] MEDS: METOPROLOL SUCC (TopROL XL) 100MG *XL* TAB PO SCH (10:07)
[2019-01-19] MEDS: DIGOXIN 0.125 MG TAB PO SCH (10:07)
[2019-01-19] MEDS: POTASSIUM CHLORIDE 10 MEQ SR TABLET PO SCH (10:08)
[2019-01-19] MEDS: MONTELUKAST 10 MG TAB PO SCH (10:08)
[2019-01-19] MEDS: LEVEMIR (INSULIN DETEMIR) 1 UNITS/0.01ML SC SCH (10:10)
[2019-01-19] MEDS: LIDOCAINE 5% (LIDODERM) PATCH TD SCH ×2 (10:13)
[2019-01-19] MEDS ORDERED: APIXABAN 5 MG TAB (ELIQUIS) PO SCH (16:00)
--- NOTE | 2019-01-19 16:02 | DSES ---
DATE OF ADMISSION: 01/14/2019 DATE OF DISCHARGE: 01/19/2019 PRIMARY DISCHARGE DIAGNOSES: 1. Atrial fibrillation with rapid ventricular response. 2. Chronic obstructive pulmonary disease (COPD). 3. Asthma. 4. Urinary tract infection (UTI) with Escherichia (E) coli present on admission. 5. Compensated systolic and diastolic congestive heart failure (CHF). 6. Insulin-dependent diabetes. 7. Hypothyroidism. 8. Chronic hypertension. 9. Obstructive sleep apnea. 10. Morbid obesity, Body Mass Index (BMI) of 58.1. 11. Reducible abdominal wall hernia. 12. Chronic respiratory failure with hypoxia, on home oxygen. DISCHARGE MEDICATIONS: - Eliquis 5 mg twice a day - Cefdinir 300 mg twice a day - acetaminophen 2 grams daily as needed - Acetazolamide 250 mg twice a day - Ventolin HFA two puffs every 4 hours as needed - atorvastatin 80 mg at night - cetirizine 10 mg daily as needed - vitamin D 1000 units twice a day - digoxin 125 mcg daily - Trulicity 1.5 mg weekly - ferrous gluconate 324 mg twice a day - Flovent one puff twice a day - folic acid 2 mg twice a day - Lantus SoloStar 30 units in the morning and 40 units at night - Combivent one solution four times a day - levothyroxine 50 mcg daily - Lisinopril 5 mg daily - magnesium oxide 400 twice a day - marijuana two capsules three times a day - metformin 1 gram twice a day - metoprolol 100 mg daily - montelukast 10 daily - fish oil 1 gram three times a day - omeprazole 40 mg twice a day - ropinirole 1 mg twice a day - potassium 20 mEq daily - spironolactone 12.5 mg daily - torsemide 20 mg twice a day HOSPITAL COURSE: This is a 68-year-old female who presented to the emergency room with complaints of urinary incontinence, abdominal pain, chills, fever and weakness for 3 days with sore throat. She was found to be in atrial fibrillation with rapid ventricular response, as well as a urinary tract infection (UTI) and mild chronic obstructive pulmonary disease (COPD) exacerbation. Her rate was controlled with digoxin, metoprolol and was started on Eliquis. THe patient was treated for COPD exacerbation with ceftriaxone and Solu-Medrol, which was transitioned to oral prednisone with improvement. Urine culture showed E coli. The patient's ceftriaxone was changed to Cefdinir and completed a 5-day course with 2 more days as an outpatient. The patient had compensated congestive heart failure (CHF) and was kept on fluid restriction, torsemide, metoprolol, spironolactone and digoxin. 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 The patient was kept on Levemir insulin, Lispro for insulin-dependent diabetes, as well as consistent carbohydrate diet and hypoglycemic protocol and sliding scale with coverage. She was continued on levothyroxine for hypothyroidism and was encouraged to use her CPAP machine once it is available as her BMI is 59 and had been confirmed to have obstructive sleep apnea. She was continued on her home dose of supplemental oxygen. PHYSICAL EXAMINATION: On discharge: Temperature 97.6, pulse 79, irregularly irregular, atrial fibrillation. Respiratory rate 18, blood pressure 113/75, 94% on 2 liters nasal cannula. GENERAL: The patient is awake, alert, oriented to person, place and time, answering questions appropriately. No use of respiratory accessory muscles. Speech is fluent. LUNGS: Clear to auscultation with no wheezing, rales or rhonchi. HEART: S1, S2. Irregularly irregular. ABDOMEN: Obese, soft, nontender, nondistended. EXTREMITIES: No cyanosis, clubbing or pitting edema. LABORATORY DATA: White count 13, hemoglobin 12, hematocrit 40, platelet count 379. Sodium 140, potassium 4, chloride 107, bicarbonate 29, BUN 19, creatinine 0.63, glucose 127. Urine culture showed E coli on 01/14/2019, resistant to ampicillin, sulbactam. Respiratory panel on 01/15/2019 was negative. IMAGING STUDIES: Chest x-ray on 01/14/2019 showed left sided small pleural effusion, basilar, air space consolidation not excluded. Time spent on discharge: 30 minutes. [facility]
== END 2019-01-19 13:08 | disposition home health service (06) | DRG 309 ==
LOC: EDBD 14:03 → M ED 14:03 → M ED INP 19:14 → M PCU 20:51 → M MSPAV 01-16 12:06
PROVIDERS: ADMIT Internal Medicine; ATTEND General Practice
DX: I48.91 Unspecified atrial fibrillation (principal); J44.1 Chronic obstructive pulmonary disease with (acute) exacerbation; N39.0 Urinary tract infection, site not specified; I50.42 Chronic combined systolic (congestive) and diastolic (congestive) heart failure; J96.11 Chronic respiratory failure with hypoxia; Z68.43 Body mass index [BMI] 50.0-59.9, adult; E66.01 Morbid (severe) obesity due to excess calories; I11.0 Hypertensive heart disease with heart failure; E03.9 Hypothyroidism, unspecified; E11.9 Type 2 diabetes mellitus without complications; B96.29 Other Escherichia coli [E. coli] as the cause of diseases classified elsewhere; G47.33 Obstructive sleep apnea (adult) (pediatric); K43.9 Ventral hernia without obstruction or gangrene; Z79.899 Other long term (current) drug therapy; Z79.4 Long term (current) use of insulin; Z87.891 Personal history of nicotine dependence; R19.7 Diarrhea, unspecified

== ENCOUNTER 2019-04-15 19:26 | Emergency (ER) | payer MEDICARE, MEDICAID ==
[~2019-04-15] VITALS: Ht 152.4 cm; Wt 140.1 kg
[~2019-04-15 19:26] MED LIST changes: +CEFD300CAP PO; +ELIQ5TAB PO; +METO1TAB33 PO; -MONT10TA2 PO; +MONT10TA4 PO; -ROPI1TAB PO; +ROPI1TAB3 PO
[2019-04-16 00:03] LABS: BASO % 0.2 % (0.0-1.0); EOS # 0.1 10^3/uL (0.0-0.5); EOS % 1.2 % (0.0-3.0); HEMATOCRIT 40.4 % (36.0-47.0); HEMOGLOBIN 13.2 g/dl (12.0-15.5); LYMPH # 2.1 10^3/uL (1.5-5.0); LYMPH % 20.6 % (24.0-44.0); MEAN CORPUSCULAR HEMOGLOBIN 29.3 pg (27.0-33.0); MEAN CORPUSCULAR HGB CONC 32.7 g/dl (32.0-36.5); MEAN CORPUSCULAR VOLUME 89.6 fl (80.0-96.0); MONO # 0.8 10^3/uL (0.0-0.8); MONO % 7.3 % (0.0-5.0); NEUTROPHILS # 7.2 10^3/uL (1.5-8.5); NEUTROPHILS % 70.2 % (36.0-66.0); PLATELET COUNT, AUTOMATED 256 10^3/uL (150-450); RED BLOOD COUNT 4.51 10^6/uL (4.00-5.40); WHITE BLOOD COUNT 10.3 10^3/uL (4.0-10.0)
[2019-04-16] MEDS ORDERED: ONDANSETRON 4MG/2ML VIAL (J2405) IV ONE (00:30)
[2019-04-16] MEDS ORDERED: MORPHINE 4 MG/ML 1ML VIAL/SYRINGE (J2270) IV ONE (00:30)
[2019-04-16 00:35] LABS: ALT/SGPT 30 U/L (12-78); BILIRUBIN,DIRECT 0.2 MG/DL (0.0-0.2); BILIRUBIN,TOTAL 0.6 MG/DL (0.2-1.0); BLOOD UREA NITROGEN 10 MG/DL (7-18); CALCIUM LEVEL 9.3 MG/DL (8.8-10.2); CARBON DIOXIDE LEVEL 29 MEQ/L (21-32); CHLORIDE LEVEL 104 MEQ/L (98-107); CREATININE FOR GFR 0.63 MG/DL (0.55-1.30); GLOMERULAR FILTRATION RATE > 60.0 (>45); GLUCOSE, FASTING 153 MG/DL (70-100); LIPASE 196 U/L (73-393); POTASSIUM SERUM 4.5 MEQ/L (3.5-5.1); SODIUM LEVEL 139 MEQ/L (136-145); TOTAL PROTEIN 6.5 GM/DL (6.4-8.2)
[2019-04-16] MEDS ORDERED: ISOVUE-370 76% 100ML VIAL (Q9967) As Ordered ONE (00:56)
--- NOTE | 2019-04-16 01:56 | REPVR ---
PROCEDURE INFORMATION: Exam: CT Abdomen And Pelvis With Contrast Exam date and time: 04/16/2019 12:25 AM Age: 68 years old Clinical indication: Abdominal pain; Localized; Left lower quadrant (llq); Additional info: Llq pain, HX divertic TECHNIQUE: Imaging protocol: Computed tomography of the abdomen and pelvis with intravenous contrast. Radiation optimization: All CT scans at this facility use at least one of these dose optimization techniques: automated exposure control; mA and/or kV adjustment per patient size (includes targeted exams where dose is matched to clinical indication); or iterative reconstruction. Contrast material: ISO; Contrast volume: 100 ml; Contrast route: AC; COMPARISON: No relevant prior studies available. FINDINGS: Liver: The liver attenuation is 57 Hounsfield units and the spleen is 92 Hounsfield units. Gallbladder and bile ducts: Minimal gallstones in the gallbladder. Pancreas: Normal. No ductal dilation. Spleen: Normal. No splenomegaly. Adrenals: Slight fullness of the adrenals. Small nodules are not excluded. Kidneys and ureters: Normal. No hydronephrosis. Stomach and bowel: Status post surgery suggesting gastric stapling. Minimal colonic diverticulosis without diverticulitis. Bowel anastomosis in the left lower quadrant which is probably small-bowel. There is focal dilatation which is likely baseline physiology for an anastomosis. Appendix: A normal appendix is seen. Intraperitoneal space: Unremarkable. No free air. No significant fluid collection. Vasculature: Unremarkable. No abdominal aortic aneurysm. Lymph nodes: Unremarkable. No enlarged lymph nodes. Bladder: Unremarkable as visualized. Reproductive: Unremarkable as visualized. Bones/joints: Degenerative changes of the lumbar spine with facet arthropathy, particularly L4-L5. Soft tissues: Broad-based ventral wall hernia. IMPRESSION: 1. Minimal colonic diverticulosis without diverticulitis. 2. Status post gastric surgery. 3. Minimal cholelithiasis. 4. Mild fatty infiltration of the liver. 5. Otherwise negative CT abdomen/pelvis. Electronically signed by: Andrea Amaro On 04/16/2019 01:55:54 AM
[2019-04-16] MEDS ORDERED: LevoFLOXacin 750 MG TABLET PO ONE (02:30)
[2019-04-16 02:57] VITALS: BP 121/78
--- NOTE | 2019-04-16 08:36 | REP ---
Chest x-ray: Two views. History: Chills. History of CHF. Body aches. Comparison chest x-ray: January 14, 2019. Findings: There are surgical clips in the right axillary soft tissues. An [id number] catheter is noted in place on the right. Mild to moderate cardiac enlargement is observed. Cardiothoracic ratio today measures 67.4%. Pulmonary vasculature is cephalized. No pleural effusion or pulmonary edema seen. There are degenerative changes in the thoracic spine. No focal infiltrate. Impression: Moderate cardiomegaly with cephalization. No focal infiltrate, pleural effusion, or pulmonary edema seen. Electronically Signed by Juan Clinton MD 04/16/2019 08:28 A
== END 2019-04-16 02:59 | disposition home or self-care (01) ==
LOC: M ED 19:26
DX: J18.9 Pneumonia, unspecified organism (principal); R68.83 Chills (without fever); R11.10 Vomiting, unspecified; R19.7 Diarrhea, unspecified; I48.91 Unspecified atrial fibrillation; I11.0 Hypertensive heart disease with heart failure; E11.9 Type 2 diabetes mellitus without complications; E78.5 Hyperlipidemia, unspecified; J44.9 Chronic obstructive pulmonary disease, unspecified; K57.32 Diverticulitis of large intestine without perforation or abscess without bleeding; Z98.84 Bariatric surgery status; E66.01 Morbid (severe) obesity due to excess calories; I51.7 Cardiomegaly; Z79.01 Long term (current) use of anticoagulants; Z79.4 Long term (current) use of insulin; Z79.899 Other long term (current) drug therapy; Z91.89 Other specified personal risk factors, not elsewhere classified
CPT/HCPCS: 71046; 74177; 80048; 80076; 81001; 83690; 85025; 96374; 96375; 99283; J2270; J2405; Q9967

== ENCOUNTER → 2019-07-16 | Outpatient (REF) | payer MEDICARE ==
[~2019-07-16] MED LIST changes: +CICL0.7733 TOP; -CICL0.776 TOP
== END ==
LOC: M LAB REF 18:17
PROVIDERS: ATTEND Physician Assistant
DX: R30.0 Dysuria (principal)

== ENCOUNTER 2019-08-13 13:18 | Inpatient (IN) | payer MEDICARE ==
[~2019-08-13] VITALS: Ht 152.4 cm; Wt 156.4 kg
[2019-08-13 14:38] LABS: BASO % 0.2 % (0.0-1.0); EOS # 0.1 10^3/uL (0.0-0.5); EOS % 0.6 % (0.0-3.0); HEMOGLOBIN 11.7 g/dl (12.0-15.5); LYMPH # 0.8 10^3/uL (1.5-5.0); LYMPH % 10.1 % (24.0-44.0); MEAN CORPUSCULAR VOLUME 96.8 fl (80.0-96.0); MONO # 0.7 10^3/uL (0.0-0.8); MONO % 8.6 % (0.0-5.0); NEUTROPHILS # 6.5 10^3/uL (1.5-8.5); NEUTROPHILS % 80.1 % (36.0-66.0); PLATELET COUNT, AUTOMATED 240 10^3/uL (150-450); RED BLOOD COUNT 4.03 10^6/uL (4.00-5.40); WHITE BLOOD COUNT 8.2 10^3/uL (4.0-10.0)
[2019-08-13 14:49] LABS: INR 1.13; PROTHROMBIN TIME 14.2 SECONDS (11.8-14.0)
[2019-08-13] MEDS ORDERED: ISOVUE-370 76% 100ML VIAL As Ordered ONE (14:59)
[2019-08-13 15:01] LABS: ERYTHROCYTE SEDIMENTATION RATE 25 mm/hr (0-30)
[2019-08-13 15:14] LABS: ALBUMIN 2.9 GM/DL (3.2-5.2); BILIRUBIN,DIRECT 0.2 MG/DL (0.0-0.2); BILIRUBIN,TOTAL 0.4 MG/DL (0.2-1.0); C REACTIVE PROTEIN QUANTITATIV 1.98 MG/DL (0.00-0.30); DIGOXIN LEVEL 0.2 NG/ML (0.5-2.0); TOTAL PROTEIN 6.1 GM/DL (6.4-8.2)
--- NOTE | 2019-08-13 15:51 | REP ---
Clinical: Chest pain. Swelling. Redness. Technique: Axial contrast enhanced images from the thoracic inlet to the upper abdomen with coronal and sagittal re-formations (followed by CT of the abdomen and pelvis) using 100 ml Isovue 370 intravenous contrast material. Findings: Moderate right pleural effusion along with bibasilar (right greater than left) and lingular atelectasis. Cardiomegaly and pulmonary vascular congestion suggested. No significant adenopathy. The osseous structures are intact and demonstrate degenerative changes. There is edema and infiltration involving the visualized portions of the left anterolateral chest wall raising the possibility of underlying cellulitis and superficial infectious/inflammatory process. Impression: 1. Small to moderate right pleural effusion along with lingular and basilar atelectasis. 2. Cardiomegaly and prominent pulmonary vasculature raising the possibility of early pulmonary venous congestion. 3. Incompletely evaluated left chest wall soft tissues demonstrating infiltration and edema suggesting cellulitis. Electronically Signed by Mark Huggins MD 08/13/2019 03:43 P
[2019-08-13] MEDS ORDERED: FLUTICASONE HFA 110 MCG 12 GM INHALER (FLOVENT) INH SCH (16:00)
[2019-08-13] MEDS ORDERED: OMEPRAZOLE 20 MG CAP PO SCH (16:00)
[2019-08-13] MEDS ORDERED: MORPHINE 4 MG/ML 1ML VIAL/SYRINGE (J2270) IV ONE (16:15)
[2019-08-13] MEDS ORDERED: ONDANSETRON 4MG/2ML VIAL IV ONE (16:15)
--- NOTE | 2019-08-13 16:21 | REP ---
Clinical: Swelling. Technique: Axial contrast enhanced images from the lung bases to the pubic symphysis using 100 ml Isovue 370 intravenous contrast material with coronal and sagittal re-formations. Findings: Evaluation is severely limited due to body habitus and field of view limitations. Portions of the abdomen and pelvis have been excluded from imaging. Liver, spleen, pancreas, gallbladder, bilateral adrenal glands and kidneys are normal. There is evidence for gastric bypass surgery. Small amount of perihepatic and abdominal ascites noted. Evaluation of the enteric system is limited and incomplete. Visualized portions of the small large bowel demonstrate colonic diverticulosis and no evidence for bowel obstruction. No obvious free air is identified. Evaluation of the pelvis demonstrates normal bladder and evidence for prior hysterectomy. 2.9 cm round soft tissue lesion in the right delpihne pelvis is unchanged through 02/28/2012 and nonspecific, but may represent right ovary. No significant adenopathy. Abdominal aorta and vasculature without aneurysm or dissection. Osseous structures demonstrate age-related degenerative changes without acute abnormality. There is significant edema and infiltration to the visualized subcutaneous soft tissues raising the possibility of cellulitis and edema. Impression: 1. Significantly limited examination. 2. Small amount of ascites noted. 3. Visualized surrounding soft tissues demonstrate edema and infiltration raising the possibility of cellulitis. Electronically Signed by Mark Huggins MD 08/13/2019 04:13 P
[2019-08-13] MEDS ORDERED: VANCOMYCIN HCL 1,000 MG, VIAL MATE ADAPTER 1 EACH in D5W 250 ML IV ONE ×7 (16:30→20:00)
[2019-08-13] MEDS ORDERED: VANCOMYCIN HCL 2,000 MG in D5W 500 ML IV ONE (16:30)
[2019-08-13] MEDS ORDERED: ELIQ2.5T PO (16:34)
[2019-08-13] MEDS ORDERED: VITA50005 PO (16:34)
[2019-08-13] MEDS ORDERED: CITA20TA6 PO (16:34)
[2019-08-13] MEDS ORDERED: GLUCOSE 4GM CHEW TABLET PO PRN (17:00)
[2019-08-13] MEDS ORDERED: GLUCAGON INJ 1MG VIAL SC PRN (17:00)
[2019-08-13] MEDS ORDERED: MOM 30ML SUSPENSION UDC PO PRN (17:00)
[2019-08-13] MEDS ORDERED: DEXTROSE 50% 50 ML SYRINGE IV PRN (17:00)
[2019-08-13] MEDS ORDERED: KETOROLAC 30 MG/ML 1ML VIAL IV PRN (17:15)
[2019-08-13] MEDS ORDERED: IPRATROPIUM 0.5MG/ALBUTEROL 2.5MG INH SOL UD 3ML (DUONEB) NEB PRN (17:15)
[2019-08-13 17:52] VITALS: BP 114/62
[2019-08-13] MEDS ORDERED: FUROSEMIDE 40MG/4ML VIAL (J1940) IV SCH (18:00)
[2019-08-13] MEDS: FOLIC ACID 1 MG TAB PO SCH (18:56)
[2019-08-13] MEDS: HumaLOG INSULIN (NovoLOG) PER UNIT SC SCH ×2 (18:56→21:00)
--- NOTE | 2019-08-13 19:19 | HPEPDOC ---
General Date of Admission Aug 13, 2019 at 16:56 Date of Service: Aug 13, 2019 Chief Complaint The patient is a 68-year-old female admitted with a reason for visit of Cellulitis, Lymphedema. Source: Patient History of Present Illness 68 year old female with Supermorbid obesity inspite of gastric bypass surgery, mostly remains in bed on her left side, SUZIE, Corpulmonale, asthma/copd, systolic and diastolic CHF, Afib, diabetes, hypertension presented to the ED with 3 days history of severe pain and swelling of the left breast, left abdominal wall extending to the left groin. The pain is stretching and dull aching in type about 7/10 extending from the left breast to the groin. Patient reports she is in bed mostly specially in the last 4 months has not been out of the house. She always lays on her left side. She has noticed swelling of the on the left side of her body gradually increasing over the last month which really became worse over the past 3 days with severe pain, stretching , heaviness and hardness of the breast and abdominal wall. CT abdomen and pelvis: Significantly limited examination. Small amount of ascites noted.Visualized surrounding soft tissues demonstrate edema and infiltration raising the possibility of cellulitis. CT Chest Small to moderate right pleural effusion along with lingular and basilar atelectasis. Cardiomegaly and prominent pulmonary vasculature raising the possibility of early pulmonary venous congestion. Incompletely evaluated left chest wall soft tissues demonstrating infiltration and edema suggesting cellulitis. She was admitted for possible breast, abdominal wall cellulitis, lymphedema. Home Medications Scheduled Acetazolamide (Acetazolamide) 250 Mg Tablet, 250 MG PO BID, (Reported) 0800 AND 1600 Apixaban (Eliquis) 2.5 Mg Tablet, 2.5 MG PO BID, (Reported) Atorvastatin Calcium (Atorvastatin Calcium) 80 Mg Tablet, 80 MG PO QHS, (Reported) Citalopram Hydrobromide (Citalopram HBr) 20 Mg Tablet, 20 MG PO DAILY, (Reported) Digoxin (Digoxin) 125 Mcg Tablet, 125 MCG PO DAILY, (Reported) Dulaglutide (Trulicity) 1.5 Mg/0.5 Ml Pen.injctr, 1.5 MG SC QWEEK, (Reported) SATURDAYS Ergocalciferol (Vitamin D2) (Vitamin D2) 50,000 Units Cap, 50,000 UNIT PO QWEEK, (Reported) WEDNESDAYS Ferrous Gluconate (Ferrous Gluconate) 324 Mg Tablet, 324 TAB PO BID, (Reported) 0800 AND 1600 Fluticasone Propionate (Flovent Hfa) 110 Mcg/Act Aer.w.adap, 1 PUFF INH BID, (Reported) 0800 AND 1600 Folic Acid (Folic Acid) 1 Mg Tab, 2 MG PO BID, (Reported) 0800 AND 1600 Insulin Glargine,Hum.rec.anlog (Lantus Solostar) 100 Unit/1 Ml Insuln.pen, 30 UN IT SC QAM, (Reported) Insulin Glargine,Hum.rec.anlog (Lantus Solostar) 100 Unit/1 Ml Insuln.pen, 40 UNITS SC QHS, (Reported) Insulin Lispro (Humalog Kwikpen U-100) 100 Unit/1 Ml Insuln.pen, 1 DOSE SC AC, (Reported) PER SLIDING SCALE NO INSULIN IS BELOW 131 Levothyroxine Sodium (Levothyroxine Sodium) 50 Mcg Tablet, 50 MCG PO DAILY, (Reported) Lisinopril (Lisinopril) 5 Mg Tablet, 5 MG PO DAILY, (Reported) Magnesium Oxide (Magnesium Oxide) 400 Mg Tablet, 400 MG PO BID, (Reported) 0800 AND 1600 Metformin HCl (Metformin HCl) 1,000 Mg Tab, 1,000 MG PO BID, (Reported) 0800 AND 1600 Metoprolol Succinate (Metoprolol Succinate) 100 Mg Tab.er.24h, 100 MG PO DAILY, (Reported) Montelukast Sodium (Montelukast Sodium) 10 Mg Tab, 10 MG PO DAILY, (Reported) [place]-3 Fatty Acids/Fish Oil (Fish Oil 1,000 mg Capsule) 1 Each Capsule, 1,000 MG PO TID, (Reported) 0800, 1200, AND 1600 Omeprazole (Omeprazole) 40 Mg Capsule.dr, 40 MG PO BID, (Reported) 0800 AND 1600 Potassium Chloride (Potassium Chloride) 20 Meq Tab.er.prt, 20 MEQ PO DAILY, (Reported) Ropinirole HCl (Ropinirole HCl) 1 Mg Tab, 1 MG PO BID, (Reported) 0800 AND 2200 Spironolactone (Spironolactone) 25 Mg Tablet, 12.5 MG PO DAILY, (Reported) Torsemide (Torsemide) 10 Mg Tablet, 20 MG PO BID, (Reported) 0800 AND 1600 [Marijuana] CAP, 2 CAP PO TID, (Reported) 0800, 1600, AND 2200 Scheduled PRN Acetaminophen (Tylenol Extra Strength) 500 Mg Tablet, 2,000 MG PO DAILY PRN for HEADACHE, (Reported) Albuterol Sulfate (Ventolin Hfa) 18 Gm Hfa.aer.ad, 2 PUFF INH Q4H PRN for SHORTNESS OF BREATH, (Reported) Cetirizine HCl (Cetirizine HCl) 10 Mg Tablet, 10 MG PO DAILY PRN for ALLERGY SYMPTOMS, (Reported) Ipratropium/Albuterol Sulfate (Iprat-Albut 0.5-3(2.5) mg/3 ml) 3 Ml Ampul.neb, 1 FAZAL INH QID PRN for SOB/WHEEZING, (Reported) Allergies Coded Allergies: TAPE (Verified Allergy, Intermediate, rash, 01/14/19) adhesives Past Medical History Medical History Systolic and diastolic CHF. EF of 45% Chronic right heart failure Morbid obesity BMI 71 Mostly bed bound. IDDM. SUZIE on CPAP Atrial fibrillation. Asthma/COPD Peptic ulcer disease. Chronic hypertension. Hypothyroidism . Restless leg syndrome Large ventral hernia. status post gastric bypass. Status post right Port-A-Cath placement. Left breast lumpectomy Bilateral axillary dissection Endometrial cancer s/p Hystrectomy Family History Significant Family History: Heart disease Social History * Smoker: former Smoker Alcohol: Denies Drugs: denies A-FIB/CHADSVASC A-FIB History Current/History of A-Fib/PAF?: Yes Current PO Anticoag Therapy: Yes Review of Systems Constitutional: Reports: Chills Eyes: Denies: Pain, Vision change ENT: Denies: Head Aches, Ear Pain, Dysphagia Skin: Reports: Lesions (thickening and tightening of the skin from damon left breat to the left side of abdomen to the left groin) Pulmonary: Reports: Dyspnea Cardiovascular: Denies: Chest Pain, Palpitations, Orthopnea, Paroxysmal Noc. Dyspnea, Lt Headedness Gastrointestinal: Reports: Constipation; Denies: Nausea, Vomiting Genitourinary: Denies: Dysuria, Frequency, Incontinence, Retention Hematologic: Denies: Bruising, Bleeding Excessively Musculoskeletal: Reports: Back Pain Physical Examination General Exam: Positive: Alert, Cooperative, No Acute Distress Eye Exam: Positive: PERRLA, Conjunctiva & lids normal, EOMI; Negative: Sclera icteric ENT Exam: Positive: Atraumatic, Mucous membr. moist/pink, Pharynx Normal Neck Exam: Positive: Supple, Other (thick neck) Chest Exam: Positive: Diminished; Negative: Rales, Rhonchi, Wheezing Heart Exam: Positive: Rate Normal, Irregular Rhythm, Normal S1, Normal S2; Negative: Murmurs, Rubs Abdomen Exam: Positive: Normal bowel sounds, Soft, Other (very obese no organomegaly palpated) Extremity Exam: Positive: Edema; Negative: Clubbing, Cyanosis Skin Exam: Positive: Other skin issue (Left breast very hard and indurated with pitting of hair follicles seen extending to the left side of the abdomen down to damon left groin. There is no erythema or warmth.) Neuro Exam: Positive: Normal Speech, Strength at 5/5 X4 ext, Normal Tone Vital Signs Vital Signs Date Time Temp Pulse Resp B/P (MAP) Pulse Ox O2 Delivery O2 Flow Rate FiO2 08/13/19 17:41 97.0 08/13/19 17:35 18 08/13/19 17:30 99 141/74 (96) 96 Nasal Cannula 2.0 Laboratory Data Labs 24H Laboratory Tests 2 08/13/19 14:28: Immature Granulocyte % (Auto) 0.4, Neutrophils (%) (Auto) 80.1H, Lymphocytes (%) (Auto) 10.1L, Monocytes (%) (Auto) 8.6H, Eosinophils (%) (Auto) 0.6, Basophils (%) (Auto) 0.2, Neutrophils # (Auto) 6.5, Lymphocytes # (Auto) 0.8L, Monocytes # (Auto) 0.7, Eosinophils # (Auto) 0.1, Basophils # (Auto) 0.0, Nucleated Red Blood Cells % (auto) 0.0, Erythrocyte Sedimentation Rate 25, Prothrombin Time 14.2H, Prothromb Time International Ratio 1.13, Lactic Acid Level 0.9, Total Bilirubin 0.4, Direct Bilirubin 0.2, Aspartate Amino Transf (AST/SGOT) 16, Alanine Aminotransferase (ALT/SGPT) 22, Alkaline Phosphatase 130H, C-Reactive Protein, Quantitative 1.98H, Total Protein 6.1L, Albumin 2.9L, Albumin/Globulin Ratio 0.9L, Digoxin Level 0.2L 08/13/19 14:36: POC Glucose (Misc Panel) 177H, POC Sodium (Misc Panel) 143, POC Potassium (Misc Panel) 4.3, POC Chloride (Misc Panel) 97L, POC Total CO2 (Misc Panel) 35.0H, POC Blood Urea Nitrogen (Misc Panel 18, POC Ionized Calcium (Misc Panel) 4.9, POC Creatinine (Misc Panel) 0.9, POC Hematocrit (Misc Panel) 37.0L CBC/BMP Laboratory Tests 08/13/19 14:28 Microbiology Microbiology 08/13/19 Blood Culture, Received Pending 08/13/19 Blood Culture, Received Pending Assessment/Plan 68 year old female with Supermorbid obesity inspite of gastric bypass surgery, mostly remains in bed on her left side, SUZIE, Corpulmonale, asthma/copd, systolic and diastolic CHF, A fib, diabetes, hypertension presented to the ED with 3 days history of severe pain and swelling of the left breast, left abdominal wall extending to the left groin. The pain is stretching and dull aching in type about 7/10 extending from the left breast to the groin. Patient reports she is bed mostly specially in the last 4 months has to been out of the house. She always lays on her left side. She has noticed swelling of the on the left side of her body gradually increasing over the last month which really became worse over the past 3 days with severe pain, stretching , heaviness and hardness of the breast and abdominal wall. She was admitted for possible breast, abdominal wall cellulitis, lymphedema. R/O Left breast and left abdominal wall cellulitis will cover with vancomycin cultures sent. Lymphedema of the left breast and abdominal wall positional due to chronic fluid overload from chronic chf and preferentially always laying on that side of the body. will give Lasix IV intake and output Chronic Systolic and diastolic CHF EF of 45% with massive fluid overload. Has gained 25 kgs since April 2019 IV lasix, fluid restriction 2 liters. spironolactone, acetazolamide Diabetes insulin dependent continue levemir and lispro SUZIE/Corpulmonale continue CPAP Morbid obesity/ restrictive lung dis/obesity hypoventilation/corpulmonale CPAP Chronic hypercarbic and hypoxic respiratory failure CPAP oxygen. Asthma duonebs prn and singular Atrial fibrillation. rate controlled will continue metoprolol, digoxin eliquis Chronic hypertension. metoprolol, hold lisinopril. Hypothyroidism . synthroid Restless leg syndrome home med Plan / VTE VTE Prophylaxis Ordered?: Yes VAN ROCHA MD Aug 13, 2019 19:19
[2019-08-13] MEDS: SENNA 8.6 MG TAB (SENOKOT) PO SCH (20:25)
[2019-08-13] MEDS: APIXABAN 2.5 MG TAB (ELIQUIS) PO SCH (20:26)
[2019-08-13] MEDS: rOPINIRole 1MG TAB PO SCH (20:26)
[2019-08-13] MEDS: ATORVASTATIN 20 MG TAB PO SCH (20:26)
[2019-08-13] MEDS: DOCUSATE SODIUM 100 MG CAP PO SCH (20:26)
[2019-08-13] MEDS ORDERED: VANCOMYCIN HCL 750 MG, VIAL MATE ADAPTER 1 EACH in D5W 250 ML IV ONE ×2 (21:00→22:00)
[2019-08-13] MEDS: LEVEMIR (INSULIN DETEMIR) 1 UNITS/0.01ML SC SCH (21:44)
[2019-08-13 22:00] VITALS: BP 136/67
[2019-08-13] MEDS ORDERED: NS 500 ML IV SCH (22:00)
[2019-08-13 22:45] LABS: ABG BASE EXCESS 2.4 (-2.0-2.0); ABG PARTIAL PRESSURE CO2 87.9 mmHg (35.0-45.0); ABG PARTIAL PRESSURE O2 101.1 mmHg (75.0-100.0); ABG STANDARD HCO3 26.6 MEQ/L (22.0-26.0); ABG TOTAL CO2 35.7 MEQ/L (23.0-31.0); ABG pH (ARTERIAL) 7.192 UNITS (7.350-7.450)
[2019-08-13] MEDS ORDERED: methylPREDNISolone INJ 125 MG/2 ML VIAL (J2930) IV STA (23:15)
[2019-08-13] MEDS: FUROSEMIDE 40MG/4ML VIAL (J1940) IV SCH (23:18)
[2019-08-14] VITALS (26 sets, daily range): BP systolic 100–168; BP diastolic 55–95
[2019-08-14 01:20] LABS: ABG BASE EXCESS 7.4 (-2.0-2.0); ABG HCO3 37.7 MEQ/L (22.0-26.0); ABG O2 SATURATION 97.7 % (95.0-99.0); ABG PARTIAL PRESSURE CO2 90.1 mmHg (35.0-45.0); ABG PARTIAL PRESSURE O2 106.2 mmHg (75.0-100.0); ABG STANDARD HCO3 31.3 MEQ/L (22.0-26.0); ABG TOTAL CO2 40.4 MEQ/L (23.0-31.0); ABG pH (ARTERIAL) 7.239 UNITS (7.350-7.450)
[2019-08-14] MEDS ORDERED: VANCOMYCIN HCL 1,000 MG, VIAL MATE ADAPTER 1 EACH in D5W 250 ML IV SCH (02:00)
[2019-08-14 05:07] LABS: BASO % 0.2 % (0.0-1.0); HEMATOCRIT 39.3 % (36.0-47.0); HEMOGLOBIN 11.8 g/dl (12.0-15.5); LYMPH # 0.4 10^3/uL (1.5-5.0); LYMPH % 4.6 % (24.0-44.0); MEAN CORPUSCULAR HEMOGLOBIN 28.9 pg (27.0-33.0); MEAN CORPUSCULAR VOLUME 96.3 fl (80.0-96.0); MONO # 0.2 10^3/uL (0.0-0.8); MONO % 2.6 % (0.0-5.0); NEUTROPHILS # 8.5 10^3/uL (1.5-8.5); NEUTROPHILS % 92.2 % (36.0-66.0); PLATELET COUNT, AUTOMATED 242 10^3/uL (150-450); RED BLOOD COUNT 4.08 10^6/uL (4.00-5.40); WHITE BLOOD COUNT 9.2 10^3/uL (4.0-10.0)
[2019-08-14 05:23] LABS: BLOOD UREA NITROGEN 16 MG/DL (7-18); CALCIUM LEVEL 8.4 MG/DL (8.8-10.2); CARBON DIOXIDE LEVEL 36 MEQ/L (21-32); CHLORIDE LEVEL 102 MEQ/L (98-107); CREATININE FOR GFR 0.62 MG/DL (0.55-1.30); GLOMERULAR FILTRATION RATE > 60.0 (>45); GLUCOSE, FASTING 198 MG/DL (70-100); POTASSIUM SERUM 4.5 MEQ/L (3.5-5.1); SODIUM LEVEL 140 MEQ/L (136-145)
[2019-08-14 06:11] LABS: ABG HCO3 36.3 MEQ/L (22.0-26.0); ABG O2 SATURATION 97.8 % (95.0-99.0); ABG PARTIAL PRESSURE O2 103.1 mmHg (75.0-100.0); ABG STANDARD HCO3 30.8 MEQ/L (22.0-26.0); ABG TOTAL CO2 38.8 MEQ/L (23.0-31.0); ABG pH (ARTERIAL) 7.275 UNITS (7.350-7.450)
[2019-08-14] MEDS: LEVOTHYROXINE 50MCG TABLET (0.05MG) PO SCH (06:29)
[2019-08-14] MEDS: FUROSEMIDE 40MG/4ML VIAL (J1940) IV SCH ×3 (06:29→18:15)
[2019-08-14] MEDS ORDERED: AcetaZOLAMIDE 250 MG TAB PO SCH (08:00)
[2019-08-14] MEDS ORDERED: methylPREDNISolone INJ 125 MG/2 ML VIAL (J2930) IV SCH (08:00)
[2019-08-14] MEDS: APIXABAN 2.5 MG TAB (ELIQUIS) PO SCH ×2 (08:03→21:04)
[2019-08-14] MEDS: rOPINIRole 1MG TAB PO SCH ×2 (08:03→21:02)
[2019-08-14] MEDS: SENNA 8.6 MG TAB (SENOKOT) PO SCH ×2 (08:03→21:02)
[2019-08-14] MEDS: HumaLOG INSULIN (NovoLOG) PER UNIT SC SCH ×4 (08:03→21:00)
[2019-08-14] MEDS: PANTOPRAZOLE 40MG VIAL (C9113 PER 1) IV SCH (08:04)
[2019-08-14] MEDS: FERROUS GLUCONATE 324 MG TAB PO SCH ×2 (08:04→16:03)
[2019-08-14] MEDS: METOPROLOL SUCC (TopROL XL) 100MG *XL* TAB PO SCH (08:04)
[2019-08-14] MEDS: SPIRONOLACTONE 12.5MG PER 1/2 TABLET PO SCH (08:04)
[2019-08-14] MEDS: DIGOXIN 0.125 MG TAB PO SCH (08:05)
[2019-08-14] MEDS: DOCUSATE SODIUM 100 MG CAP PO SCH ×2 (08:05→21:04)
[2019-08-14] MEDS: MONTELUKAST 10 MG TAB PO SCH (08:05)
[2019-08-14] MEDS: LEVEMIR (INSULIN DETEMIR) 1 UNITS/0.01ML SC SCH ×2 (08:05→21:26)
[2019-08-14] MEDS: CitaloPRAM (CeleXA) 20 MG TAB PO SCH (08:05)
[2019-08-14] MEDS: FOLIC ACID 1 MG TAB PO SCH ×2 (08:05→16:02)
--- NOTE | 2019-08-14 08:26 | CCN ---
DATE: 08/14/2019 CRITICAL CARE TIME: 1 hour 6 minutes; this excludes all procedures. Ms. Bryson was admitted yesterday with a tentative diagnosis of chest wall cellulitis. It was determined overnight, she became more and more drowsy. Eventually, arterial blood gas was performed showing a significant hypercarbic respiratory failure. Patient has been prescribed a continuous positive airway pressure (CPAP) machine at home, but she states the mask does not fit her. She states she follows with pulmonology in [place]. She has not been compliant with her therapy. She has had a reported history of cellulitis and was actually on treatment prior to arrival here. Her main complaint was that of skin discomfort. She states she has not been walking for over 3 weeks now. She has a known history of significant systolic dysfunction with atrial fibrillation but also probable severe pulmonary hypertension. She has no headaches. She has been on bilevel noninvasive therapy through my guidance through the hospitalist service overnight with some improvement of arterial blood gases. I did increase her inspiratory pressure this morning as she is not fully compensated on her blood gas. She states she is comfortable with the mask that she has on. I explained she can use this mask at home. She will require close followup and likely rehabilitation in order to be able to walk. If she remains bed-bound, that will likely be the end of her life. She has had no fever, chills. Denies any cough. She denies any chest discomfort. PHYSICAL EXAM: Temperature is 97.7, pulse is 104, respiratory rate is 20, blood pressure is 112/66 with a mean arterial pressure (MAP) of 81, oxygen saturations 92% on 0.40 FiO2, bilevel noninvasive therapy at 22/10. General: Awake, alert, cooperative. Is able to follow commands. HEENT: Sclerae are clear, anicteric. Pupils are reactive to light. Mucous membranes are moist. Crowded airway. Mallampati IV. Neck: Is very large in circumference. Difficult to assess JVP. There is no mass palpated. I am unable to palpate any thyromegaly. Lymphatics: No cervical, supraclavicular, or axillary adenopathy. Cardiac: Distant S1, S2, without audible murmur, rub, or gallop. No discernible JVP. Diffuse lymphedema. Pulmonary: Decreased breath sounds throughout without rales, rhonchi, or wheezes. No dullness to percussion. No accessory muscle use. Poor chest expansion. No prolongation of the expiratory phase. Abdomen: Is morbidly obese. I am unable to palpate any discernible hepatosplenomegaly. No masses or hernia. Skin: There is significant lymphedema. There is engorgement of the mons pubis. There is no significant erythema or warmth to suggest cellulitis. 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 Neurological: No unilateral weakness. However, patient is unable to lift her own weight at this point in time. No evidence of tremor. No asterixis. Speech is fairly clear and non-tangential. Echocardiogram 11/02/2018 shows an ejection fraction of 45%, which is a limited study. On this study, there is severe left atrial enlargement. Not surprising, the right ventricle (RV) is poorly visualized but the inferior vena cava (IVC) is markedly dilated. Laboratory testing from today showed white blood cell count is 9.2, hemoglobin 11.8, platelet count of 242. Sodium is 140, potassium is 4.5, chloride is 102, bicarbonate of 36, BUN is 16, creatinine of 0.62 with a glucose 198. Arterial blood gas shows pH of 7.28, pCO2 of 80, and a PaO2 of 103. ASSESSMENT: 1. Hypercarbic respiratory failure, likely secondary to obesity. Recommend close outpatient followup with her pulmonary provider. She likely requires re-titration. Would discontinue acetazolamide currently due to her hypercarbic respiratory failure. This could have been the potential tipping point. 2. Probable underlying pulmonary hypertension, likely severe in nature, likely from World Health Organization (WHO) group 2 and 3. Recommend concentrating on bilevel noninvasive therapy, weight loss. 3. Obstructive sleep apnea as above, likely obesity hypoventilation. 4. Lymphedema. At this point in time, I see no signs of cellulitis. The patient likely has significant lymphedema, may be in part due to severe pulmonary hypertension. Also has a history of endometrial carcinoma. 5. Atrial fibrillation with systolic dysfunction. On Eliquis. Therefore, deep venous thrombosis (DVT) prophylaxis is covered with Eliquis. Acute pulmonary embolism would be unlikely while on Eliquis. 6. Nutrition status. Nothing by mouth until respiratory status improves. 7. Gastrointestinal (GI) prophylaxis. On Protonix. IMPRESSION: Patient has a severely guarded prognosis, especially due to the severity of her obesity, the fact that she is fairly immobile and bedridden, and likely has severe underlying pulmonary hypertension. Treatment would be to focus on bilevel noninvasive management and then rehabilitation in order to have the patient begin physical therapy to begin walking again. Overall, very poor prognosis.
--- NOTE | 2019-08-14 10:49 | IPNPDOC ---
Subjective Date Seen The patient was seen on 08/14/19. Subjective Chief Complaint/HPI Over the evening yesterday patient was noted to become more and more somnolent then lethargic ABG showed acute Co2 retention. Patient was moved to ICU and started on BIPAP. This am she is alert oriented and conversant. She is happy with the BIPAP mask, Says her left breast and the left abdomen feels less tense and painful. Objective Physical Examination General Exam: Positive: Alert, Cooperative, No Acute Distress Eye Exam: Positive: PERRLA, Conjunctiva & lids normal, EOMI; Negative: Sclera icteric ENT Exam: Positive: Atraumatic, Mucous membr. moist/pink, Pharynx Normal Neck Exam: Positive: Supple, Other (thick neck) Chest Exam: Positive: Diminished; Negative: Rales, Rhonchi, Wheezing Heart Exam: Positive: Rate Normal, Irregular Rhythm, Normal S1, Normal S2; Negative: Murmurs, Rubs Abdomen Exam: Positive: Normal bowel sounds, Soft, Other (very obese no organomegaly palpated) Extremity Exam: Positive: Edema; Negative: Clubbing, Cyanosis Skin Exam: Positive: Other skin issue (Left breast very hard and indurated with pitting of hair follicles seen extending to the left side of the abdomen down to the left groin. There is no erythema or warmth.) Neuro Exam: Positive: Normal Speech, Strength at 5/5 X4 ext, Normal Tone Assessment /Plan Assessment 68 year old female with Supermorbid obesity inspite of gastric bypass surgery, mostly remains in bed on her left side, SUZIE, Corpulmonale, asthma/copd, systolic and diastolic CHF, A fib, diabetes, hypertension presented to the ED with 3 days history of severe pain and swelling of the left breast, left abdominal wall extending to the left groin. The pain is stretching and dull aching in type abou t 7/10 extending from the left breast to the groin. Patient reports she is bed mostly specially in the last 4 months has to been out of the house. She always lays on her left side. She has noticed swelling of the on the left side of her body gradually increasing over the last month which really became worse over the past 3 days with severe pain, stretching , heaviness and hardness of the breast and abdominal wall. She was admitted for possible breast, abdominal wall cellulitis, lymphedema. Acute on chronic hypercapnic respiratory failure patient was on acetazolamide at home this could have worsened her hypercarbia Did not get any in the hospital started on BIPAP Appreciate pulmonary consultation. Lymphedema of the left breast and abdominal wall positional due to chronic fluid overload from chronic chf , corpulmonale, pulmonary hypertension likely severe and preferentially always laying on that side of the body, Has not been out of bed for 3 weeks. Has not been using her CPAP for 3 weeks says the mask is too small and the tubing gets disconnected frequently. Has gained 25 kgs in the last 4 months. Lasix IV intake and output, fluid restriction right sided or straight positioning. Ruled out Left breast and left abdominal wall cellulitis vanco dced. 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 Chronic Systolic and diastolic CHF EF of 45% with massive fluid overload. Has gained 25 kgs since April 2019 IV lasix, fluid restriction 2 liters. spironolactone Diabetes insulin dependent continue levemir and lispro Asthma duonebs prn and singular Atrial fibrillation. rate controlled will continue metoprolol, digoxin eliquis Chronic hypertension. metoprolol, hold lisinopril. Hypothyroidism . synthroid Restless leg syndrome home med Plan/VTE VTE Prophylaxis Ordered?: Yes VS, I&O, 24H, Fishbone Vital Signs/I&O Vital Signs Date Time Temp Pulse Resp B/P (MAP) Pulse Ox O2 Delivery O2 Flow Rate FiO2 08/14/19 08:05 102 08/14/19 08:04 111/77 08/14/19 08:00 98.4 18 96 NIPPV (BIPAP/CPAP) 40 08/13/19 22:00 2.0 I&O- Last 24 Hours up to 6 AM 08/14/19 05:59 Intake Total 625 ml Output Total 1750 ml Balance -1125 ml Laboratory Data 24H LABS Laboratory Tests 2 08/13/19 14:28: Immature Granulocyte % (Auto) 0.4, Neutrophils (%) (Auto) 80.1H, Lymphocytes (%) (Auto) 10.1L, Monocytes (%) (Auto) 8.6H, Eosinophils (%) (Auto) 0.6, Basophils (%) (Auto) 0.2, Neutrophils # (Auto) 6.5, Lymphocytes # (Auto) 0.8L, Monocytes # (Auto) 0.7, Eosinophils # (Auto) 0.1, Basophils # (Auto) 0.0, Nucleated Red Blood Cells % (auto) 0.0, Erythrocyte Sedimentation Rate 25, Prothrombin Time 14.2H, Prothromb Time International Ratio 1.13, Lactic Acid Level 0.9, Total Bilirubin 0.4, Direct Bilirubin 0.2, Aspartate Amino Transf (AST/SGOT) 16, Manav ne Aminotransferase (ALT/SGPT) 22, Alkaline Phosphatase 130H, C-Reactive Protein, Quantitative 1.98H, Total Protein 6.1L, Albumin 2.9L, Albumin/Globulin Ratio 0.9L, Digoxin Level 0.2L 08/13/19 14:36: POC Glucose (Misc Panel) 177H, POC Sodium (Misc Panel) 143, POC Potassium (Misc Panel) 4.3, POC Chloride (Misc Panel) 97L, POC Total CO2 (Misc Panel) 35.0H, POC Blood Urea Nitrogen (Misc Panel 18, POC Ionized Calcium (Misc Panel) 4.9, POC Creatinine (Misc Panel) 0.9, POC Hematocrit (Misc Panel) 37.0L 08/13/19 18:49: Bedside Glucose (Misc Panel) 146H 08/13/19 21:16: Bedside Glucose (Misc Panel) 168H 08/13/19 22:22: Bedside Glucose (Misc Panel) 186H 08/13/19 22:32: Blood Gas Bicarbonate Standard 26.6H, Arterial Blood pH 7.192*L, Arterial Blood Partial Pressure CO2 87.9*H, Arterial Blood Partial Pressure O2 101.1H, Arterial Blood Total CO2 35.7H, Arterial Blood HCO3 33.0H, Arterial Blood Base Excess 2.4H, Arterial Blood Oxygen Saturation 97.0 08/13/19 22:58: Troponin I < 0.02 08/14/19 00:08: Bedside Glucose (Misc Panel) 188H 08/14/19 01:08: Blood Gas Bicarbonate Standard 31.3H, Arterial Blood pH 7.239*L, Arterial Blood Partial Pressure CO2 90.1*H, Arterial Blood Partial Pressure O2 106.2H, Arterial Blood Total CO2 40.4H, Arterial Blood HCO3 37.7H, Arterial Blood Base Excess 7.4H, Arterial Blood Oxygen Saturation 97.7 08/14/19 03:07: Lactic Acid Level 0.5 08/14/19 04:30: Immature Granulocyte % (Auto) 0.4, Neutrophils (%) (Auto) 92.2H, Lymphocytes (%) (Auto) 4.6L, Monocytes (%) (Auto) 2.6, Eosinophils (%) (Auto) 0.0, Basophils (%) (Auto) 0.2, Neutrophils # (Auto) 8.5, Lymphocytes # (Auto) 0.4L, Monocytes # (Auto) 0.2, Eosinophils # (Auto) 0.0, Basophils # (Auto) 0.0, Nucleated Red Blood Cells % (auto) 0.0, Anion Gap 2L, Glomerular Filtration Rate > 60.0, Calcium Level 8.4L 08/14/19 05:57: Blood Gas Bicarbonate Standard 30.8H, Arterial Blood pH 7.275L, Arterial Blood Partial Pressure CO2 80.0*H, Arterial Blood Partial Pressure O2 103.1H, Arterial Blood Total CO2 38.8H, Arterial Blood HCO3 36.3H, Arterial Blood Base Excess 7.0H, Arterial Blood Oxygen Saturation 97.8 08/14/19 07:45: Bedside Glucose (Misc Panel) 230H CBC/BMP Laboratory Tests 08/13/19 14:28 08/14/19 04:30 Microbiology Microbiology 08/13/19 Blood Culture, Received Pending 08/13/19 Blood Culture, Received Pending VAN ROCHA MD Aug 14, 2019 10:49
--- NOTE | 2019-08-14 11:11 | ECGEPIP ---
[facility] Test Date: 2019-08-13 Pat Name: BLAIR BREWSTER Department: Room: [place] [address] Gender: Female [employer]: : 1950 Requested By: YESSICA ZAMARRIPA Order Number: [id number] Reading MD: Claus Roman Measurements Intervals [place] Rate: 105 P: TN: 0 QRS: 30 QRSD: 97 T: 33 QT: 339 QTc: 449 Interpretive Statements ATRIAL FIBRILLATION WITH RAPID VENTRICULAR RESPONSE LOW QRS VOLTAGE POSSIBLE ANTERIOR MYOCARDIAL INFARCTION, PROBABLY OLD Compared to prior tracings (4) in the system, Atrial Fibrillation is not new Electronically Signed on 08-14-2019 11:11:45 EDT by Claus Roman
[2019-08-14 13:36] LABS: ABG BASE EXCESS 11.3 (-2.0-2.0); ABG HCO3 39.7 MEQ/L (22.0-26.0); ABG O2 SATURATION 97.9 % (95.0-99.0); ABG PARTIAL PRESSURE O2 100.1 mmHg (75.0-100.0); ABG STANDARD HCO3 35.1 MEQ/L (22.0-26.0); ABG TOTAL CO2 41.9 MEQ/L (23.0-31.0); ABG pH (ARTERIAL) 7.347 UNITS (7.350-7.450)
[2019-08-14] MEDS: ACETAMINOPHEN TAB 650MG DOSE (2X325MG) PO PRN ×2 (16:02→21:03)
[2019-08-14] MEDS: ATORVASTATIN 20 MG TAB PO SCH (21:04)
[2019-08-15] VITALS: BP 110/59
[2019-08-15] MEDS: FUROSEMIDE 40MG/4ML VIAL (J1940) IV SCH ×3 (00:53→16:58)
[2019-08-15 04:00] VITALS: BP 112/64
[2019-08-15] MEDS: ACETAMINOPHEN TAB 650MG DOSE (2X325MG) PO PRN (05:02)
[2019-08-15 05:13] LABS: BASO % 0.1 % (0.0-1.0); EOS % 0.1 % (0.0-3.0); HEMATOCRIT 34.3 % (36.0-47.0); HEMOGLOBIN 10.5 g/dl (12.0-15.5); LYMPH # 1.2 10^3/uL (1.5-5.0); LYMPH % 13.9 % (24.0-44.0); MEAN CORPUSCULAR HEMOGLOBIN 29.2 pg (27.0-33.0); MEAN CORPUSCULAR HGB CONC 30.6 g/dl (32.0-36.5); MEAN CORPUSCULAR VOLUME 95.3 fl (80.0-96.0); MONO % 11.3 % (0.0-5.0); NEUTROPHILS # 6.5 10^3/uL (1.5-8.5); NEUTROPHILS % 74.1 % (36.0-66.0); PLATELET COUNT, AUTOMATED 224 10^3/uL (150-450); WHITE BLOOD COUNT 8.7 10^3/uL (4.0-10.0)
[2019-08-15 05:41] LABS: BLOOD UREA NITROGEN 21 MG/DL (7-18); CALCIUM LEVEL 8.3 MG/DL (8.8-10.2); CARBON DIOXIDE LEVEL 41 MEQ/L (21-32); CHLORIDE LEVEL 101 MEQ/L (98-107); CREATININE FOR GFR 0.72 MG/DL (0.55-1.30); GLOMERULAR FILTRATION RATE > 60.0 (>45); GLUCOSE, FASTING 121 MG/DL (70-100); POTASSIUM SERUM 3.9 MEQ/L (3.5-5.1); SODIUM LEVEL 145 MEQ/L (136-145)
[2019-08-15] MEDS: LEVOTHYROXINE 50MCG TABLET (0.05MG) PO SCH (06:36)
[2019-08-15] MEDS: METOPROLOL SUCC (TopROL XL) 100MG *XL* TAB PO SCH (07:39)
[2019-08-15 08:00] VITALS: BP 107/64
[2019-08-15] MEDS: LEVEMIR (INSULIN DETEMIR) 1 UNITS/0.01ML SC SCH ×2 (08:04→20:14)
[2019-08-15] MEDS: HumaLOG INSULIN (NovoLOG) PER UNIT SC SCH ×4 (08:04→20:07)
[2019-08-15] MEDS: rOPINIRole 1MG TAB PO SCH ×2 (08:05→20:13)
[2019-08-15] MEDS: FERROUS GLUCONATE 324 MG TAB PO SCH ×2 (08:05→16:58)
[2019-08-15] MEDS: SENNA 8.6 MG TAB (SENOKOT) PO SCH ×2 (08:05→20:13)
[2019-08-15] MEDS: DOCUSATE SODIUM 100 MG CAP PO SCH ×2 (08:05→20:14)
[2019-08-15] MEDS: SPIRONOLACTONE 12.5MG PER 1/2 TABLET PO SCH (08:05)
[2019-08-15] MEDS: PANTOPRAZOLE 40MG VIAL (C9113 PER 1) IV SCH (08:05)
[2019-08-15] MEDS: MONTELUKAST 10 MG TAB PO SCH (08:06)
[2019-08-15] MEDS: APIXABAN 2.5 MG TAB (ELIQUIS) PO SCH ×2 (08:06→20:13)
[2019-08-15] MEDS: FOLIC ACID 1 MG TAB PO SCH ×2 (08:06→16:58)
[2019-08-15] MEDS: DIGOXIN 0.125 MG TAB PO SCH (08:07)
[2019-08-15] MEDS: CitaloPRAM (CeleXA) 20 MG TAB PO SCH (08:07)
--- NOTE | 2019-08-15 11:00 | IPNPDOC ---
Subjective Date Seen The patient was seen on 08/15/19. Subjective Chief Complaint/HPI Feeling much better, The hardness and pain on the left breast and left abdominal wall in getting better, having large amounts of urine output much of it was not measured yesterday as there was leakage from the ext cath causing bed wetting several times. No fever or chills. No Chest pain or sob. Sitting up by the side of the bed with legs dangling. Objective Physical Examination General Exam: Positive: Alert, Cooperative, No Acute Distress Eye Exam: Positive: PERRLA, Conjunctiva & lids normal, EOMI; Negative: Sclera icteric ENT Exam: Positive: Atraumatic, Mucous membr. moist/pink, Pharynx Normal Neck Exam: Positive: Supple, Other (thick neck) Chest Exam: Positive: Diminished; Negative: Rales, Rhonchi, Wheezing Heart Exam: Positive: Rate Normal, Irregular Rhythm, Normal S1, Normal S2; Negative: Murmurs, Rubs Abdomen Exam: Positive: Normal bowel sounds, Soft, Other (very obese no organomegaly palpated) Extremity Exam: Positive: Edema; Negative: Clubbing, Cyanosis Skin Exam: Positive: Other skin issue (Left breast very hard and indurated with pitting of hair follicles seen extending to the left side of the abdomen down to the left groin. There is no erythema or warmth.) Neuro Exam: Positive: Normal Speech, Strength at 5/5 X4 ext, Normal Tone Assessment /Plan Assessment 68 year old female with Supermorbid obesity inspite of gastric bypass surgery, mostly remains in bed on her left side, SUZIE, Corpulmonale, asthma/copd, systolic and diastolic CHF, A fib, diabetes, hypertension presented to the ED with 3 days history of severe pain and swelling of the left breast, left abdominal wall extending to the left groin. The pain is stretching and dull aching in type about 7/10 extending from the left breast to the groin. Patient reports she is bed mostly specially in the last 4 months has to been out of the house. She always lays on her left side. She has noticed swelling of the on the left side of her body gradually increasing over the last month which really became worse over the past 3 days with severe pain, stretching , heaviness and hardness of the breast and abdominal wall. She was admitted for possible breast, abdominal wall cellulitis, lymphedema. Acute on chronic hypercapnic respiratory failure patient was on acetazolamide at home this could have worsened her hypercarbia Did not get any in the hospital on BIPAP Appreciate pulmonary consultation. Lymphedema of the left breast and abdominal wall positional due to chronic fluid overload from chronic chf , corpulmonale, pulmonary hypertension likely severe and preferentially always laying on that side of the body, Has not been out of bed for 3 weeks. Has not been using her CPAP for 3 weeks says the mask is too small and the tubing gets disconnected frequently. Has gained 25 kgs in the last 4 months. Lasix IV intake and output, fluid restriction right sided or straight positioning. Chronic Systolic and diastolic CHF EF of 45% with massive fluid overload. Has gained 25 kgs since April 2019 IV lasix, fluid restriction 2 liters. spironolactone Bicarb rising will decrease lasix dosage. Ruled out Left breast and left abdominal wall cellulitis vanco dced. 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 Diabetes insulin dependent continue levemir and lispro Asthma duonebs prn and singular Atrial fibrillation. rate controlled will continue metoprolol, digoxin eliquis Chronic hypertension. metoprolol, hold lisinopril. Hypothyroidism . synthroid Restless leg syndrome home med PT Plan/VTE VTE Prophylaxis Ordered?: Yes VS, I&O, 24H, Fishbone Vital Signs/I&O Vital Signs Date Time Temp Pulse Resp B/P (MAP) Pulse Ox O2 Delivery O2 Flow Rate FiO2 08/15/19 02:00 98.5 98 24 94 NIPPV (BIPAP/CPAP) 40 08/15/19 00:00 110/59 (76) 08/14/19 14:00 2.0 I&O- Last 24 Hours up to 6 AM 08/15/19 07:00 Intake Total 995 ml Output Total 2100 ml Balance -1105 ml Laboratory Data 24H LABS Laboratory Tests 2 08/14/19 05:57: Blood Gas Bicarbonate Standard 30.8H, Arterial Blood pH 7.275L, Arterial Blood Partial Pressure CO2 80.0*H, Arterial Blood Partial Pressure O2 103.1H, Arterial Blood Total CO2 38.8H, Arterial Blood HCO3 36.3H, Arterial Blood Base Excess 7.0H, Arterial Blood Oxygen Saturation 97.8 08/14/19 07:45: Bedside Glucose (Misc Panel) 230H 08/14/19 13:26: Blood Gas Bicarbonate Standard 35.1H, Arterial Blood pH 7.347L, Arterial Blood Partial Pressure CO2 74.0*H, Arterial Blood Partial Pressure O2 100.1H, Arterial Blood Total CO2 41.9H, Arterial Blood HCO3 39.7H, Arterial Blood Base Excess 11.3H, Arterial Blood Oxygen Saturation 97.9 08/14/19 13:31: Bedside Glucose (Misc Panel) 214H 08/14/19 18:09: Bedside Glucose (Misc Panel) 195H 08/14/19 21:13: Bedside Glucose (Misc Panel) 189H 08/15/19 04:52: Immature Granulocyte % (Auto) 0.5, Neutrophils (%) (Auto) 74.1H, Lymphocytes (%) (Auto) 13.9L, Monocytes (%) (Auto) 11.3H, Eosinophils (%) (Auto) 0.1, Basophils (%) (Auto) 0.1, Neutrophils # (Auto) 6.5, Lymphocytes # (Auto) 1.2L, Monocytes # (Auto) 1.0H, Eosinophils # (Auto) 0.0, Basophils # (Auto) 0.0, Nucleated Red Blood Cells % (auto) 0.0, Anion Gap 3L, Glomerular Filtration Rate > 60.0, Ca lcium Level 8.3L CBC/BMP Laboratory Tests 08/15/19 04:52 Microbiology Microbiology 08/13/19 Blood Culture - Preliminary, Resulted No growth after 24 hours . All specim... 08/13/19 Blood Culture - Preliminary, Resulted No growth after 24 hours . All specim... VAN ROCHA MD Aug 15, 2019 05:56
[2019-08-15 12:00] VITALS: BP 115/75
--- NOTE | 2019-08-15 12:03 | IPN ---
DATE OF SERVICE: 08/15/2019 I, Lizandro Evans, attended Ms. Bryson in the intensive care unit (ICU) for her history of hypercarbic respiratory failure. Now that she is on bilevel 22 over 10, she has been doing well. She has had diuresis. Less anasarca and lymphedema. She was actually standing at the side of her bed today. I have explained to her that it is of dire importance that she gets up, ambulates, and eventually exercises on a daily basis. Weight loss will be chavez. I have also extensively counseled her on the need to remain compliant with the use of her machine. I believe she should be on bilevel at this point in time. I have no idea what her home machine is set at. However, she does tell me that it is from [facility] and that she has a order desk caller in [place] that she believes is Dr. Benito Rousseau. I will attempt to contact his office on Friday to obtain records and have a discussion with him in regard to her followup. I have all the oren that he will be able to continue to follow her as long as she a remains compliant. We will provide her with the mask she is using here, as she states her mask at home did not fit as well. She has had no fevers or chills. No cough. No chest discomfort overnight. Temperature 98.7, pulse is 100, respiratory rate is 24, blood pressure is 107/64 with a mean arterial pressure of 78, oxygen saturation is 96% on 0.40 FIO2 on bilevel 22 over 10. General: Awake, alert, and oriented. Affect and mood appropriate. Nutrition and hygiene are fair. HEENT: Sclerae clear, anicteric. Pupils equal and, react to light. Mucous membranes are moist. Tongue is midline. Mallampati 4. Neck: Large circumference. No mass or thyromegaly. Trachea is midline. Pulmonary: Decreased breath sounds throughout without rales, rhonchi, or wheezes. Fair inspiratory effort. Cardiac: Distant heart sounds, regular, S1, S2, without audible murmur, rub, or gallop. No elevated jugular venous pressure (JVP). There is significant systemic edema and anasarca. Neuro: No unilateral weakness or tremor. No asterixis. LABORATORY EVALUATION: Shows a white blood cell count of 8.7, hemoglobin 10.5, platelet count of 224. Sodium is 145, potassium 3.9, chloride is 101, bicarbonate is up to 41, BUN is 21, creatinine is 0.72, glucose is down to 121. Arterial blood gas this morning shows a compensated respiratory acidosis with a pH of 7.35, pCO2 of 74, with a pAO2 of 100. IMPRESSION: Hypercarbic hypoxic respiratory failure, most likely from obesity hypoventilation, noncompliance, pulmonary hypertension, and congestive heart failure. Recommend home bilevel noninvasive settings of 22 over 10. Will discuss with her outpatient pulmonary physician as to what her machine is set up at this point in time. Depending on her current setup, will see if this level of noninvasive ventilation can be obtained without repeating titration. Overall, her disease process is due to noncompliance with multiple different regimens, including her nocturnal pressure therapy, exercise, and morbid obesity. VIRGILIO
[2019-08-15 14:07] LABS: ABG BASE EXCESS 11.9 (-2.0-2.0); ABG HCO3 40.8 MEQ/L (22.0-26.0); ABG O2 SATURATION 97.5 % (95.0-99.0); ABG PARTIAL PRESSURE O2 95.9 mmHg (75.0-100.0); ABG STANDARD HCO3 35.7 MEQ/L (22.0-26.0); ABG TOTAL CO2 43.2 MEQ/L (23.0-31.0); ABG pH (ARTERIAL) 7.328 UNITS (7.350-7.450)
[2019-08-15 14:09] LABS: ABG PARTIAL PRESSURE CO2 79.5 mmHg (35.0-45.0)
[2019-08-15 16:25] VITALS: BP 115/76
[2019-08-15 20:00] VITALS: BP 106/52
[2019-08-15] MEDS: ATORVASTATIN 20 MG TAB PO SCH (20:13)
[2019-08-16] VITALS: BP 115/80
[2019-08-16] MEDS: ACETAMINOPHEN TAB 650MG DOSE (2X325MG) PO PRN ×3 (02:30→20:10)
[2019-08-16 04:29] LABS: BASO % 0.1 % (0.0-1.0); EOS # 0.1 10^3/uL (0.0-0.5); EOS % 0.8 % (0.0-3.0); HEMATOCRIT 34.2 % (36.0-47.0); HEMOGLOBIN 10.6 g/dl (12.0-15.5); LYMPH # 1.5 10^3/uL (1.5-5.0); LYMPH % 21.3 % (24.0-44.0); MEAN CORPUSCULAR HEMOGLOBIN 29.2 pg (27.0-33.0); MEAN CORPUSCULAR VOLUME 94.2 fl (80.0-96.0); MONO # 0.7 10^3/uL (0.0-0.8); MONO % 9.3 % (0.0-5.0); NEUTROPHILS # 4.9 10^3/uL (1.5-8.5); NEUTROPHILS % 68.1 % (36.0-66.0); PLATELET COUNT, AUTOMATED 189 10^3/uL (150-450); RED BLOOD COUNT 3.63 10^6/uL (4.00-5.40); WHITE BLOOD COUNT 7.2 10^3/uL (4.0-10.0)
[2019-08-16 04:31] VITALS: BP 124/77
[2019-08-16 04:58] LABS: BLOOD UREA NITROGEN 20 MG/DL (7-18); CALCIUM LEVEL 8.2 MG/DL (8.8-10.2); CARBON DIOXIDE LEVEL 42 MEQ/L (21-32); CHLORIDE LEVEL 99 MEQ/L (98-107); GLOMERULAR FILTRATION RATE > 60.0 (>45); GLUCOSE, FASTING 92 MG/DL (70-100); POTASSIUM SERUM 3.7 MEQ/L (3.5-5.1); SODIUM LEVEL 145 MEQ/L (136-145)
[2019-08-16] MEDS: LEVOTHYROXINE 50MCG TABLET (0.05MG) PO SCH (05:26)
[2019-08-16] MEDS: HumaLOG INSULIN (NovoLOG) PER UNIT SC SCH ×4 (06:57→20:11)
[2019-08-16 07:39] VITALS: BP 124/59
[2019-08-16] MEDS: SPIRONOLACTONE 12.5MG PER 1/2 TABLET PO SCH (08:10)
[2019-08-16] MEDS: rOPINIRole 1MG TAB PO SCH ×2 (08:11→20:10)
[2019-08-16] MEDS: LEVEMIR (INSULIN DETEMIR) 1 UNITS/0.01ML SC SCH ×2 (08:11→20:11)
[2019-08-16] MEDS: FUROSEMIDE 40MG/4ML VIAL (J1940) IV SCH ×2 (08:11→16:38)
[2019-08-16] MEDS: PANTOPRAZOLE 40MG VIAL (C9113 PER 1) IV SCH (08:11)
[2019-08-16] MEDS: FERROUS GLUCONATE 324 MG TAB PO SCH ×2 (08:12→16:37)
[2019-08-16] MEDS: FOLIC ACID 1 MG TAB PO SCH ×2 (08:12→16:37)
[2019-08-16] MEDS: DIGOXIN 0.125 MG TAB PO SCH (08:12)
[2019-08-16] MEDS: MONTELUKAST 10 MG TAB PO SCH (08:12)
[2019-08-16] MEDS: CitaloPRAM (CeleXA) 20 MG TAB PO SCH (08:12)
[2019-08-16] MEDS: SENNA 8.6 MG TAB (SENOKOT) PO SCH ×2 (08:13→20:10)
[2019-08-16] MEDS: APIXABAN 2.5 MG TAB (ELIQUIS) PO SCH ×2 (08:13→20:10)
[2019-08-16] MEDS: DOCUSATE SODIUM 100 MG CAP PO SCH ×2 (08:13→20:10)
[2019-08-16] MEDS: METOPROLOL SUCC (TopROL XL) 100MG *XL* TAB PO SCH (08:13)
--- NOTE | 2019-08-16 09:01 | IPNPDOC ---
Subjective Date Seen The patient was seen on 08/16/19. Subjective Chief Complaint/HPI Feeling much better, her left breast swelling has reduced significantly. Her left abdominal wall is also getting softer. No fever or chills, no chest pain Objective Physical Examination General Exam: Positive: Alert, Cooperative, No Acute Distress Eye Exam: Positive: PERRLA, Conjunctiva & lids normal, EOMI; Negative: Sclera icteric ENT Exam: Positive: Atraumatic, Mucous membr. moist/pink, Pharynx Normal Neck Exam: Positive: Supple, Other (thick neck) Chest Exam: Positive: Diminished; Negative: Rales, Rhonchi, Wheezing Heart Exam: Positive: Rate Normal, Irregular Rhythm, Normal S1, Normal S2; Negative: Murmurs, Rubs Abdomen Exam: Positive: Normal bowel sounds, Soft, Other (very obese no organomegaly palpated) Extremity Exam: Positive: Edema; Negative: Clubbing, Cyanosis Skin Exam: Positive: Other skin issue (Left breast very hard and indurated with pitting of hair follicles seen extending to the left side of the abdomen down to the left groin. There is no erythema or warmth.) Neuro Exam: Positive: Normal Speech, Strength at 5/5 X4 ext, Normal Tone Assessment /Plan Assessment 68 year old female with Supermorbid obesity inspite of gastric bypass surgery, mostly remains in bed on her left side, SUZIE, Corpulmonale, asthma/copd, systolic and diastolic CHF, A fib, diabetes, hypertension presented to the ED with 3 days history of severe pain and swelling of the left breast, left abdominal wall extending to the left groin. The pain is stretching and dull aching in type about 7/10 extending from the left breast to the groin. Patient reports she is bed mostly specially in the last 4 months has to been out of the house. She always lays on her left side. She has noticed swelling of the on the left side of her body gradually increasing over the last month which really became worse over the past 3 days with severe pain, stretching , heaviness and hardness of the breast and abdominal wall. She was admitted for possible breast, abdominal wall cellulitis, lymphedema. Acute on chronic hypercapnic respiratory failure patient was on acetazolamide at home this could have worsened her hypercarbia Did not get any in the hospital on BIPAP Appreciate pulmonary consultation. Lymphedema of the left breast and abdominal wall positional due to chronic fluid overload from chronic chf , corpulmonale, pulmonary hypertension likely severe and preferentially always laying on that side of the body, Has not been out of bed for 3 weeks. Has not been using her CPAP for 3 weeks says the mask is too small and the tubing gets disconnected frequently. Has gained 25 kgs in the last 4 months. Lasix IV intake and output, fluid restriction right sided or straight positioning. Chronic Systolic and diastolic CHF EF of 45% with massive fluid overload. Has gained 25 kgs since April 2019 IV lasix, fluid restriction 2 liters. spironolactone Ruled out Left breast and left abdominal wall cellulitis vanco dced. 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 Diabetes insulin dependent continue levemir and lispro Asthma duonebs prn and singular Atrial fibrillation. rate controlled will continue metoprolol, digoxin eliquis Chronic hypertension. metoprolol, hold lisinopril. Hypothyroidism . synthroid Restless leg syndrome home med PT continue Plan/VTE VTE Prophylaxis Ordered?: Yes VS, I&O, 24H, Fishbone Vital Signs/I&O Vital Signs Date Time Temp Pulse Resp B/P (MAP) Pulse Ox O2 Delivery O2 Flow Rate FiO2 08/16/19 08:13 95 124/59 08/16/19 08:00 2.0 08/16/19 08:00 94 Nasal Cannula 08/16/19 07:39 97.0 22 08/16/19 04:31 40 I&O- Last 24 Hours up to 6 AM 08/16/19 05:59 Intake Total 1240 ml Output Total 2655 ml Balance -1415 ml Laboratory Data 24H LABS Laboratory Tests 2 08/15/19 11:40: Bedside Glucose (Misc Panel) 119H 08/15/19 13:56: Blood Gas Bicarbonate Standard 35.7H, Arterial Blood pH 7.328L, Arterial Blood Partial Pressure CO2 79.5*H, Arterial Blood Partial Pressure O2 95.9, Arterial Blood Total CO2 43.2H, Arterial Blood HCO3 40.8H, Arterial Blood Base Excess 11.9H, Arterial Blood Oxygen Saturation 97.5 08/15/19 17:47: Bedside Glucose (Misc Panel) 128H 08/15/19 20:06: Bedside Glucose (Misc Panel) 139H 08/16/19 04:13: Immature Granulocyte % (Auto) 0.4, Neutrophils (%) (Auto) 68.1H, Lymphocytes (%) (Auto) 21.3L, Monocytes (%) (Auto) 9.3H, Eosinophils (%) (Auto) 0.8, Basophils (%) (Auto) 0.1, Neutrophils # (Auto) 4.9, Lymphocytes # (Auto) 1.5, Monocytes # (Auto) 0.7, Eosinophils # (Auto) 0.1, Basophils # (Auto) 0.0, Nucleated Red Blood Cells % (auto) 0.0, Anion Gap 4L, Glomerular Filtration Rate > 60.0, Calcium Level 8.2L CBC/BMP Laboratory Tests 08/16/19 04:13 Microbiology Microbiology 08/13/19 Blood Culture - Preliminary, Resulted No Growth after 48 hours. All Specime... 08/13/19 Blood Culture - Preliminary, Resulted No Growth after 48 hours. All Specime... VAN ROCHA MD Aug 16, 2019 09:01
[2019-08-16 11:28] VITALS: BP 132/77
--- NOTE | 2019-08-16 12:49 | CCN ---
DATE: 08/16/2019 Ms. Bryson is seen in the intensive care unit (ICU). She is getting BiPAP at night and with all sleep and currently is on nasal cannula at 2 liters. She does follow with pulmonary in [place] and she has her pressure therapy monitored by her providers in [place]. She believes that is her creative guru is Dr. Arnold. We tried to contact his office this morning to inquire about her prior pressure settings; however, we were unable to reach anyone. We will continue to try to contact them. The patient states that a family member will be bringing her machine in, so hopefully we can get some answers then as well. The patient reports otherwise she feels she is doing well and returning back to baseline status. She states that her lymphedema has been decreasing as well. She denies fevers or chills. Denies any other new issues. PHYSICAL EXAMINATION: Temperature 97.0, pulse 95, respiratory rate 22, blood pressure 124/59, pulse oximetry 94% on 2 liters. General: The patient is sitting up in a chair. She is alert and oriented. She speaks in complete sentences. She is morbidly obese. HEENT: Head is normocephalic, atraumatic. Moist mucous membranes. Neck: Neck is supple. No cervical lymphadenopathy. No obvious jugular venous distention (JVD). Pulmonary: Diminished breath sounds likely secondary to body habitus, but no wheezes, rales, rhonchi or crackles appreciated. Heart: Irregularly irregular. Abdomen: Obese. Positive bowel sounds. Exam limited by habitus. Extremities: The patient has 1+ pitting edema of the bilateral lower extremities. Skin: Skin is warm and dry. Neurologic: Nonfocal grossly. LABORATORY DATA: WBC 7.2, hemoglobin 10.6, hematocrit 34.2, and platelets 189. Sodium 145, potassium 3.7, chloride 99, carbon dioxide 42, BUN 20, creatinine 0.60, glucose 92, calcium 8.2. Microbiology: Blood cultures showed no growth after 48 hours x2. ASSESSMENT/PLAN: Hypercarbic hypoxic respiratory failure most likely from obesity hypoventilation, noncompliance, pulmonary hypertension, and congestive heart failure. She is currently on BiPAP settings 22 over 10. We have been attempting to reach her outpatient pulmonary physician who she believes is Dr. Arnold in [place] in order to obtain information regarding her current outpatient pressure settings. We have been unable to reach that office, but we will continue to try. The patient does state that a family member will be bringing her machine in later. She is again advised that she needs to be compliant with pressure therapy. The patient is optimistic about initiating physical therapy today to hopefully become more ambulatory. Addendum: We were able to get in contact with the patient's pulmonary office in [place], who confirmed that she is on BiPAP as on outpatient and on settings of 20/15. She should continue her outpatient BiPAP settings as ordered by her outpatient creative guru and use BiPAP compliantly when she is discharged. VIRGILIO
[2019-08-16] MEDS: ATORVASTATIN 20 MG TAB PO SCH (20:10)
[2019-08-16 20:16] VITALS: BP 103/58
[2019-08-17 04:00] VITALS: BP 100/55
[2019-08-17 04:49] LABS: BASO % 0.2 % (0.0-1.0); EOS # 0.1 10^3/uL (0.0-0.5); EOS % 1.7 % (0.0-3.0); HEMATOCRIT 36.6 % (36.0-47.0); LYMPH # 1.2 10^3/uL (1.5-5.0); LYMPH % 18.1 % (24.0-44.0); MEAN CORPUSCULAR HEMOGLOBIN 28.6 pg (27.0-33.0); MEAN CORPUSCULAR HGB CONC 30.1 g/dl (32.0-36.5); MEAN CORPUSCULAR VOLUME 95.1 fl (80.0-96.0); MONO # 0.6 10^3/uL (0.0-0.8); MONO % 9.4 % (0.0-5.0); NEUTROPHILS # 4.6 10^3/uL (1.5-8.5); NEUTROPHILS % 70.4 % (36.0-66.0); PLATELET COUNT, AUTOMATED 192 10^3/uL (150-450); RED BLOOD COUNT 3.85 10^6/uL (4.00-5.40); WHITE BLOOD COUNT 6.6 10^3/uL (4.0-10.0)
[2019-08-17 05:09] LABS: BLOOD UREA NITROGEN 17 MG/DL (7-18); CARBON DIOXIDE LEVEL 41 MEQ/L (21-32); CHLORIDE LEVEL 101 MEQ/L (98-107); CREATININE FOR GFR 0.51 MG/DL (0.55-1.30); GLOMERULAR FILTRATION RATE > 60.0 (>45); GLUCOSE, FASTING 96 MG/DL (70-100); POTASSIUM SERUM 3.4 MEQ/L (3.5-5.1); SODIUM LEVEL 145 MEQ/L (136-145)
[2019-08-17] MEDS: LEVOTHYROXINE 50MCG TABLET (0.05MG) PO SCH (05:19)
[2019-08-17 07:00] VITALS: BP 121/64
[2019-08-17] MEDS: HumaLOG INSULIN (NovoLOG) PER UNIT SC SCH ×4 (07:10→21:00)
[2019-08-17] MEDS: SPIRONOLACTONE 12.5MG PER 1/2 TABLET PO SCH (08:10)
[2019-08-17] MEDS: LEVEMIR (INSULIN DETEMIR) 1 UNITS/0.01ML SC SCH ×2 (08:10→21:37)
[2019-08-17] MEDS: FUROSEMIDE 40MG/4ML VIAL (J1940) IV SCH ×2 (08:10→16:39)
[2019-08-17] MEDS: POTASSIUM CHLORIDE 10 MEQ SR TABLET PO SCH (08:11)
[2019-08-17] MEDS: PANTOPRAZOLE 40MG TAB (PROTONIX) PO SCH (08:11)
[2019-08-17] MEDS: SENNA 8.6 MG TAB (SENOKOT) PO SCH ×2 (08:11→21:00)
[2019-08-17] MEDS: DOCUSATE SODIUM 100 MG CAP PO SCH ×2 (08:11→21:00)
[2019-08-17] MEDS: FOLIC ACID 1 MG TAB PO SCH ×2 (08:11→16:39)
[2019-08-17] MEDS: CitaloPRAM (CeleXA) 20 MG TAB PO SCH (08:12)
[2019-08-17] MEDS: MONTELUKAST 10 MG TAB PO SCH (08:12)
[2019-08-17] MEDS: METOPROLOL SUCC (TopROL XL) 100MG *XL* TAB PO SCH (08:12)
[2019-08-17] MEDS: APIXABAN 2.5 MG TAB (ELIQUIS) PO SCH ×2 (08:12→21:37)
[2019-08-17] MEDS: DIGOXIN 0.125 MG TAB PO SCH (08:13)
[2019-08-17] MEDS: rOPINIRole 1MG TAB PO SCH ×2 (08:13→21:37)
[2019-08-17] MEDS: FERROUS GLUCONATE 324 MG TAB PO SCH ×2 (08:13→16:39)
[2019-08-17 09:16] VITALS: BP 115/68
[2019-08-17 14:00] VITALS: BP 120/64
--- NOTE | 2019-08-17 14:39 | IPNPDOC ---
Subjective Date Seen The patient was seen on 08/17/19. Subjective Chief Complaint/HPI Feelig better, pain in her abdominal wall and breast almost gone, She has been working with Physical therapy and ambulating short distances. Objective Physical Examination General Exam: Positive: Alert, Cooperative, No Acute Distress Eye Exam: Positive: PERRLA, Conjunctiva & lids normal, EOMI; Negative: Sclera icteric ENT Exam: Positive: Atraumatic, Mucous membr. moist/pink, Pharynx Normal Neck Exam: Positive: Supple, Other (thick neck) Chest Exam: Positive: Diminished; Negative: Rales, Rhonchi, Wheezing Heart Exam: Positive: Rate Normal, Irregular Rhythm, Normal S1, Normal S2; Negative: Murmurs, Rubs Abdomen Exam: Positive: Normal bowel sounds, Soft, Other (very obese no organomegaly palpated) Extremity Exam: Positive: Edema; Negative: Clubbing, Cyanosis Skin Exam: Positive: Other skin issue (Left breast very hard and indurated with pitting of hair follicles seen extending to the left side of the abdomen down to the left groin. There is no erythema or warmth.) Neuro Exam: Positive: Normal Speech, Strength at 5/5 X4 ext, Normal Tone Assessment /Plan Assessment 68 year old female with Supermorbid obesity inspite of gastric bypass surgery, mostly remains in bed on her left side, SUZIE, Corpulmonale, asthma/copd, systolic and diastolic CHF, A fib, diabetes, hypertension presented to the ED with 3 days history of severe pain and swelling of the left breast, left abdominal wall extending to the left groin. The pain is stretching and dull aching in type about 7/10 extending from the left breast to the groin. Patient reports she is bed mostly specially in the last 4 months has to been out of the house. She always lays on her left side. She has noticed swelling of the on the left side of her body gradually increasing over the last month which really became worse over the past 3 days with severe pain, stretching , heaviness and hardness of the breast and abdominal wall. She was admitted for possible breast, abdominal wall cellulitis, lymphedema. Acute on chronic hypercapnic respiratory failure now resolved. She is back on her own CPAP machine at home settings. Appreciate pulmonary consultation. Lymphedema of the left breast and abdominal wall positional due to chronic fluid overload from chronic chf , corpulmonale, pulmonary hypertension likely severe and preferentially always laying on that side of the body, Has not been out of bed for 3 weeks. Has gained 25 kgs in the last 4 months. Continue Lasix IV intake and output, fluid restriction Chronic Systolic and diastolic CHF EF of 45% with massive fluid overload. Has gained 25 kgs since April 2019 IV lasix, fluid restriction 2 liters. spironolactone Hypokalemia replaced. Ruled out Left breast and left abdominal wall cellulitis vanco dced. 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 Diabetes insulin dependent continue levemir and lispro Asthma duonebs prn and singular Atrial fibrillation. rate controlled will continue metoprolol, digoxin eliquis Chronic hypertension. metoprolol, hold lisinopril. Hypothyroidism . synthroid Restless leg syndrome home med PT continue Plan/VTE VTE Prophylaxis Ordered?: Yes VS, I&O, [facility]H, [facility] Vital Signs/I&O Vital Signs Date Time Temp Pulse Resp B/P (MAP) Pulse Ox O2 Delivery O2 Flow Rate FiO2 08/17/19 14:31 79 20 97 Nasal Cannula 2.0 08/17/19 09:16 97.8 115/68 (84) 08/17/19 04:00 40 I&O- Last 24 Hours up to 6 AM 08/17/19 06:00 Intake Total 1100 ml Output Total 3010 ml Balance -1910 ml Laboratory Data 24H LABS Laboratory Tests 2 08/16/19 16:47: Bedside Glucose (Misc Panel) 123H 08/16/19 20:01: Bedside Glucose (Misc Panel) 150H 08/17/19 04:31: Immature Granulocyte % (Auto) 0.2, Neutrophils (%) (Auto) 70.4H, Lymphocytes (%) (Auto) 18.1L, Monocytes (%) (Auto) 9.4H, Eosinophils (%) (Auto) 1.7, Basophils (%) (Auto) 0.2, Neutrophils # (Auto) 4.6, Lymphocytes # (Auto) 1.2L, Monocytes # (Auto) 0.6, Eosinophils # (Auto) 0.1, Basophils # (Auto) 0.0, Nucleated Red Blood Cells % (auto) 0.0, Anion Gap 3L, Glomerular Filtration Rate > 60.0, Calcium Level 8.0L 08/17/19 11:44: Bedside Glucose (Misc Panel) 147H CBC/BMP Laboratory Tests 08/17/19 04:31 Microbiology Microbiology 08/13/19 Blood Culture - Preliminary, Resulted No Growth after 72 hours. All specime... 08/13/19 Blood Culture - Preliminary, Resulted No Growth after 72 hours. All specime... VAN ROCHA MD Aug 17, 2019 14:39
[2019-08-17] MEDS: ATORVASTATIN 20 MG TAB PO SCH (21:37)
[2019-08-17] MEDS: ACETAMINOPHEN TAB 650MG DOSE (2X325MG) PO PRN (21:38)
[2019-08-17 22:00] VITALS: BP 123/72
[2019-08-18 06:00] VITALS: BP 110/59
[2019-08-18] MEDS: LEVOTHYROXINE 50MCG TABLET (0.05MG) PO SCH (06:13)
[2019-08-18] MEDS: ACETAMINOPHEN TAB 650MG DOSE (2X325MG) PO PRN ×3 (06:13→22:51)
[2019-08-18 07:36] LABS: BASO % 0.3 % (0.0-1.0); EOS # 0.2 10^3/uL (0.0-0.5); EOS % 2.5 % (0.0-3.0); HEMATOCRIT 35.5 % (36.0-47.0); HEMOGLOBIN 10.7 g/dl (12.0-15.5); LYMPH # 1.1 10^3/uL (1.5-5.0); LYMPH % 15.5 % (24.0-44.0); MEAN CORPUSCULAR HEMOGLOBIN 28.4 pg (27.0-33.0); MEAN CORPUSCULAR HGB CONC 30.1 g/dl (32.0-36.5); MEAN CORPUSCULAR VOLUME 94.2 fl (80.0-96.0); MONO # 0.7 10^3/uL (0.0-0.8); MONO % 8.9 % (0.0-5.0); NEUTROPHILS # 5.3 10^3/uL (1.5-8.5); NEUTROPHILS % 72.3 % (36.0-66.0); PLATELET COUNT, AUTOMATED 188 10^3/uL (150-450); RED BLOOD COUNT 3.77 10^6/uL (4.00-5.40); WHITE BLOOD COUNT 7.3 10^3/uL (4.0-10.0)
[2019-08-18 08:02] LABS: BLOOD UREA NITROGEN 14 MG/DL (7-18); CALCIUM LEVEL 8.4 MG/DL (8.8-10.2); CARBON DIOXIDE LEVEL 43 MEQ/L (21-32); CHLORIDE LEVEL 97 MEQ/L (98-107); CREATININE FOR GFR 0.51 MG/DL (0.55-1.30); GLOMERULAR FILTRATION RATE > 60.0 (>45); GLUCOSE, FASTING 113 MG/DL (70-100); POTASSIUM SERUM 3.5 MEQ/L (3.5-5.1); SODIUM LEVEL 144 MEQ/L (136-145)
[2019-08-18] MEDS: PANTOPRAZOLE 40MG TAB (PROTONIX) PO SCH (08:12)
[2019-08-18] MEDS: FOLIC ACID 1 MG TAB PO SCH ×2 (08:12→16:25)
[2019-08-18] MEDS: rOPINIRole 1MG TAB PO SCH ×2 (08:12→20:43)
[2019-08-18] MEDS: METOPROLOL SUCC (TopROL XL) 100MG *XL* TAB PO SCH ×2 (08:12→08:17)
[2019-08-18] MEDS: CitaloPRAM (CeleXA) 20 MG TAB PO SCH (08:14)
[2019-08-18] MEDS: MONTELUKAST 10 MG TAB PO SCH (08:14)
[2019-08-18] MEDS: HumaLOG INSULIN (NovoLOG) PER UNIT SC SCH ×4 (08:14→20:44)
[2019-08-18] MEDS: FERROUS GLUCONATE 324 MG TAB PO SCH ×2 (08:14→16:24)
[2019-08-18] MEDS: SPIRONOLACTONE 12.5MG PER 1/2 TABLET PO SCH (08:14)
[2019-08-18] MEDS: DIGOXIN 0.125 MG TAB PO SCH (08:15)
[2019-08-18] MEDS: POTASSIUM CHLORIDE 10 MEQ SR TABLET PO SCH (08:15)
[2019-08-18] MEDS: APIXABAN 2.5 MG TAB (ELIQUIS) PO SCH ×2 (08:15→20:43)
[2019-08-18] MEDS: DOCUSATE SODIUM 100 MG CAP PO SCH ×2 (08:16→20:43)
[2019-08-18] MEDS: FUROSEMIDE 40MG/4ML VIAL (J1940) IV SCH ×2 (08:16→16:26)
[2019-08-18] MEDS: LEVEMIR (INSULIN DETEMIR) 1 UNITS/0.01ML SC SCH ×2 (08:16→22:50)
[2019-08-18] MEDS: SENNA 8.6 MG TAB (SENOKOT) PO SCH ×2 (08:16→20:44)
--- NOTE | 2019-08-18 11:59 | IPNPDOC ---
Subjective Date Seen The patient was seen on 08/18/19. Subjective Chief Complaint/HPI No new complaints today. Says abdomen and brest is softer. She is working with PT. Objective Physical Examination General Exam: Positive: Alert, Cooperative, No Acute Distress Eye Exam: Positive: PERRLA, Conjunctiva & lids normal, EOMI; Negative: Sclera icteric ENT Exam: Positive: Atraumatic, Mucous membr. moist/pink, Pharynx Normal Neck Exam: Positive: Supple, Other (thick neck) Chest Exam: Positive: Diminished; Negative: Rales, Rhonchi, Wheezing Heart Exam: Positive: Rate Normal, Irregular Rhythm, Normal S1, Normal S2; Negative: Murmurs, Rubs Abdomen Exam: Positive: Normal bowel sounds, Soft, Other (very obese no organomegaly palpated) Extremity Exam: Positive: Edema; Negative: Clubbing, Cyanosis Skin Exam: Positive: Other skin issue (Left breast very hard and indurated with pitting of hair follicles seen extending to the left side of the abdomen down to the left groin. There is no erythema or warmth.) Neuro Exam: Positive: Normal Speech, Strength at 5/5 X4 ext, Normal Tone Assessment /Plan Assessment 68 year old female with Supermorbid obesity inspite of gastric bypass surgery, mostly remains in bed on her left side, SUZIE, Corpulmonale, asthma/copd, systolic and diastolic CHF, A fib, diabetes, hypertension presented to the ED with 3 days history of severe pain and swelling of the left breast, left abdominal wall extending to the left groin. The pain is stretching and dull aching in type about 7/10 extending from the left breast to the groin. Patient reports she is bed mostly specially in the last 4 months has to been out of the house. She always lays on her left side. She has noticed swelling of the on the left side of her body gradually increasing over the last month which really became worse over the past 3 days with severe pain, stretching , heaviness and hardness of the breast and abdominal wall. She was admitted for possible breast, abdominal wall cellulitis, lymphedema. Acute on chronic hypercapnic respiratory failure now resolved. She is back on her own CPAP machine at home settings. Appreciate pulmonary consultation. Lymphedema of the left breast and abdominal wall positional due to chronic fluid overload from chronic chf , corpulmonale, pulmonary hypertension likely severe and preferentially always laying on that side of the body, Has not been out of bed for 3 weeks. Has gained 25 kgs in the last 4 months. Continue Lasix IV intake and output, fluid restriction Chronic Systolic and diastolic CHF EF of 45% with massive fluid overload. Has gained 25 kgs since April 2019 IV lasix, fluid restriction 2 liters. spironolactone Hypokalemia replaced. Ruled out Left breast and left abdominal wall cellulitis vanco dced. 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 Diabetes insulin dependent continue levemir and lispro Asthma duonebs prn and singular Atrial fibrillation. rate controlled will continue metoprolol, digoxin eliquis Chronic hypertension. metoprolol, hold lisinopril. Hypothyroidism . synthroid Restless leg syndrome home med PT continue Plan/VTE VTE Prophylaxis Ordered?: Yes VS, I&O, 24H, [facility] Vital Signs/I&O Vital Signs Date Time Temp Pulse Resp B/P (MAP) Pulse Ox O2 Delivery O2 Flow Rate FiO2 08/18/19 08:15 88 08/18/19 06:00 98.6 24 110/59 (76) 96 Nasal Cannula 2.0 08/17/19 04:00 40 I&O- Last 24 Hours up to 6 AM 08/18/19 05:59 Intake Total 1120 ml Output Total 3025 ml Balance -1905 ml Laboratory Data 24H LABS Laboratory Tests 2 08/17/19 16:34: Bedside Glucose (Misc Panel) 152H 08/17/19 21:02: Bedside Glucose (Misc Panel) 183H 08/18/19 06:32: Immature Granulocyte % (Auto) 0.5, Neutrophils (%) (Auto) 72.3H, Lymphocytes (%) (Auto) 15.5L, Monocytes (%) (Auto) 8.9H, Eosinophils (%) (Auto) 2.5, Basophils (%) (Auto) 0.3, Neutrophils # (Auto) 5.3, Lymphocytes # (Auto) 1.1L, Monocytes # (Auto) 0.7, Eosinophils # (Auto) 0.2, Basophils # (Auto) 0.0, Nucleated Red Blood Cells % (auto) 0.0, Anion Gap 4L, Glomerular Filtration Rate > 60.0, Calcium Level 8.4L 08/18/19 11:49: Bedside Glucose (Misc Panel) 134H CBC/BMP Laboratory Tests 08/18/19 06:32 Microbiology Microbiology 08/13/19 Blood Culture - Preliminary, Resulted No Growth after 72 hours. All specime... 08/13/19 Blood Culture - Preliminary, Resulted No Growth after 72 hours. All specime... VAN ROCHA MD Aug 18, 2019 11:59
[2019-08-18 14:00] VITALS: BP 124/60
[2019-08-18] MEDS: SODIUM CHLORIDE 0.9% INJ 10 ML SYR IV PRN (14:03)
[2019-08-18] MEDS: MECLIZINE 25 MG TABLET PO PRN (17:05)
[2019-08-18] MEDS: ATORVASTATIN 20 MG TAB PO SCH (20:43)
[2019-08-18 22:00] VITALS: BP 108/56
[2019-08-18] MEDS: DICLOFENAC EPOLAMINE 1.3 % PATCH TOP SCH (22:51)
[2019-08-19 06:00] VITALS: BP 120/56
[2019-08-19] MEDS: LEVOTHYROXINE 50MCG TABLET (0.05MG) PO SCH (06:06)
[2019-08-19] MEDS: ACETAMINOPHEN TAB 650MG DOSE (2X325MG) PO PRN ×2 (06:06→23:28)
[2019-08-19 06:35] LABS: BASO % 0.3 % (0.0-1.0); EOS # 0.2 10^3/uL (0.0-0.5); EOS % 3.1 % (0.0-3.0); HEMATOCRIT 35.5 % (36.0-47.0); HEMOGLOBIN 10.7 g/dl (12.0-15.5); LYMPH # 1.3 10^3/uL (1.5-5.0); LYMPH % 20.9 % (24.0-44.0); MEAN CORPUSCULAR HEMOGLOBIN 28.8 pg (27.0-33.0); MEAN CORPUSCULAR HGB CONC 30.1 g/dl (32.0-36.5); MEAN CORPUSCULAR VOLUME 95.7 fl (80.0-96.0); MONO # 0.6 10^3/uL (0.0-0.8); MONO % 9.2 % (0.0-5.0); NEUTROPHILS # 4.1 10^3/uL (1.5-8.5); NEUTROPHILS % 66.2 % (36.0-66.0); PLATELET COUNT, AUTOMATED 166 10^3/uL (150-450); RED BLOOD COUNT 3.71 10^6/uL (4.00-5.40); WHITE BLOOD COUNT 6.2 10^3/uL (4.0-10.0)
[2019-08-19 06:53] LABS: BLOOD UREA NITROGEN 18 MG/DL (7-18); CALCIUM LEVEL 8.7 MG/DL (8.8-10.2); CARBON DIOXIDE LEVEL 42 MEQ/L (21-32); CHLORIDE LEVEL 97 MEQ/L (98-107); CREATININE FOR GFR 0.61 MG/DL (0.55-1.30); GLOMERULAR FILTRATION RATE > 60.0 (>45); GLUCOSE, FASTING 128 MG/DL (70-100); POTASSIUM SERUM 3.5 MEQ/L (3.5-5.1); SODIUM LEVEL 143 MEQ/L (136-145)
[2019-08-19] MEDS: LEVEMIR (INSULIN DETEMIR) 1 UNITS/0.01ML SC SCH ×2 (08:10→20:47)
[2019-08-19] MEDS: DICLOFENAC EPOLAMINE 1.3 % PATCH TOP SCH ×2 (08:11→20:48)
[2019-08-19] MEDS: HumaLOG INSULIN (NovoLOG) PER UNIT SC SCH ×4 (08:11→20:12)
[2019-08-19] MEDS: PANTOPRAZOLE 40MG TAB (PROTONIX) PO SCH (08:12)
[2019-08-19] MEDS: DOCUSATE SODIUM 100 MG CAP PO SCH ×2 (08:12→20:48)
[2019-08-19] MEDS: POTASSIUM CHLORIDE 10 MEQ SR TABLET PO SCH (08:12)
[2019-08-19] MEDS: MONTELUKAST 10 MG TAB PO SCH (08:12)
[2019-08-19] MEDS: SENNA 8.6 MG TAB (SENOKOT) PO SCH ×2 (08:13→20:47)
[2019-08-19] MEDS: APIXABAN 2.5 MG TAB (ELIQUIS) PO SCH ×2 (08:13→20:48)
[2019-08-19] MEDS: rOPINIRole 1MG TAB PO SCH ×2 (08:13→20:47)
[2019-08-19] MEDS: CitaloPRAM (CeleXA) 20 MG TAB PO SCH (08:13)
[2019-08-19] MEDS: FERROUS GLUCONATE 324 MG TAB PO SCH ×2 (08:13→17:00)
[2019-08-19] MEDS: FOLIC ACID 1 MG TAB PO SCH ×2 (08:13→17:00)
[2019-08-19] MEDS: SODIUM CHLORIDE 0.9% INJ 10 ML SYR IV SCH (08:13)
[2019-08-19] MEDS: SPIRONOLACTONE 12.5MG PER 1/2 TABLET PO SCH (08:13)
[2019-08-19] MEDS: TORSEMIDE 20 MG TAB PO SCH ×2 (08:13→17:00)
[2019-08-19] MEDS: DIGOXIN 0.125 MG TAB PO SCH (08:14)
[2019-08-19] MEDS: METOPROLOL SUCC (TopROL XL) 100MG *XL* TAB PO SCH ×2 (08:16→08:17)
[2019-08-19] MEDS: MECLIZINE 25 MG TABLET PO PRN ×2 (08:31→20:49)
[2019-08-19] MEDS ORDERED: DOCU100C16 PO (13:48)
[2019-08-19] MEDS ORDERED: TORS20TA2 PO (13:48)
[2019-08-19] MEDS ORDERED: SENN18TA PO (13:48)
[2019-08-19 14:00] VITALS: BP 127/63
--- NOTE | 2019-08-19 15:13 | IPNPDOC ---
Subjective Date Seen The patient was seen on 08/19/19. Subjective Chief Complaint/HPI No complaints this morning. working with PT able to ambulate more. Objective Physical Examination General Exam: Positive: Alert, Cooperative, No Acute Distress Eye Exam: Positive: PERRLA, Conjunctiva & lids normal, EOMI; Negative: Sclera icteric ENT Exam: Positive: Atraumatic, Mucous membr. moist/pink, Pharynx Normal Neck Exam: Positive: Supple, Other (thick neck) Chest Exam: Positive: Diminished; Negative: Rales, Rhonchi, Wheezing Heart Exam: Positive: Rate Normal, Irregular Rhythm, Normal S1, Normal S2; Negative: Murmurs, Rubs Abdomen Exam: Positive: Normal bowel sounds, Soft, Other (very obese no organomegaly palpated) Extremity Exam: Positive: Edema; Negative: Clubbing, Cyanosis Skin Exam: Positive: Other skin issue (Left breast very hard and indurated with pitting of hair follicles seen extending to the left side of the abdomen down to the left groin. There is no erythema or warmth.) Neuro Exam: Positive: Normal Speech, Strength at 5/5 X4 ext, Normal Tone Assessment /Plan Assessment 68 year old female with Supermorbid obesity inspite of gastric bypass surgery, mostly remains in bed on her left side, SUZIE, Corpulmonale, asthma/copd, systolic and diastolic CHF, A fib, diabetes, hypertension presented to the ED with 3 days history of severe pain and swelling of the left breast, left abdominal wall extending to the left groin. The pain is stretching and dull aching in type about 7/10 extending from the left breast to the groin. Patient reports she is bed mostly specially in the last 4 months has to been out of the house. She always lays on her left side. She has noticed swelling of the on the left side of her body gradually increasing over the last month which really became worse over the past 3 days with severe pain, stretching , heaviness and hardness of the breast and abdominal wall. She was admitted for possible breast, abdominal wall cellulitis, lymphedema. Acute on chronic hypercapnic respiratory failure now resolved. She is back on her own CPAP machine at home settings at 20/15 Appreciate pulmonary consultation. Lymphedema of the left breast and abdominal wall positional due to chronic fluid overload from chronic chf , corpulmonale, pulmonary hypertension likely severe and preferentially always laying on that side of the body, Has not been out of bed for 3 weeks. Has gained 25 kgs in the last 4 months. Continue torsemide intake and output, fluid restriction Chronic Systolic and diastolic CHF EF of 45% with massive fluid overload. Has gained 25 kgs since April 2019 fluid restriction 2 liters. spironolactone, torsemide Hypokalemia replaced. Ruled out Left breast and left abdominal wall cellulitis vanco dced. 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 Diabetes insulin dependent continue levemir and lispro Asthma duonebs prn and singular Atrial fibrillation. rate controlled will continue metoprolol, digoxin eliquis Chronic hypertension. metoprolol, hold lisinopril. Hypothyroidism . synthroid Restless leg syndrome home med PT continue Disposition: Home in 24 hours with home services Plan/VTE VTE Prophylaxis Ordered?: Yes VS, I&O, 24H, [facility] Vital Signs/I&O Vital Signs Date Time Temp Pulse Resp B/P (MAP) Pulse Ox O2 Delivery O2 Flow Rate FiO2 08/19/19 14:00 98.4 83 20 127/63 (84) 96 Nasal Cannula 2.0 08/17/19 04:00 40 I&O- Last 24 Hours up to 6 AM 08/19/19 06:00 Intake Total 1066 ml Output Total 1100 ml Balance -34 ml Laboratory Data 24H LABS Laboratory Tests 2 08/18/19 16:35: Bedside Glucose (Misc Panel) 165H 08/18/19 20:26: Bedside Glucose (Misc Panel) 136H 08/19/19 05:54: Immature Granulocyte % (Auto) 0.3, Neutrophils (%) (Auto) 66.2H, Lymphocytes (%) (Auto) 20.9L, Monocytes (%) (Auto) 9.2H, Eosinophils (%) (Auto) 3.1H, Basophils (%) (Auto) 0.3, Neutrophils # (Auto) 4.1, Lymphocytes # (Auto) 1.3L, Monocytes # (Auto) 0.6, Eosinophils # (Auto) 0.2, Basophils # (Auto) 0.0, Nucleated Red Blo od Cells % (auto) 0.0, Anion Gap 4L, Glomerular Filtration Rate > 60.0, Calcium Level 8.7L 08/19/19 11:17: Bedside Glucose (Misc Panel) 142H CBC/BMP Laboratory Tests 08/19/19 05:54 Microbiology Microbiology 08/13/19 Blood Culture - Final, Complete NO GROWTH AFTER 5 DAYS 08/13/19 Blood Culture - Final, Complete NO GROWTH AFTER 5 DAYS VAN ROCHA MD Aug 19, 2019 15:13
[2019-08-19] MEDS: ATORVASTATIN 20 MG TAB PO SCH (20:47)
[2019-08-19 22:00] VITALS: BP 133/74
[2019-08-20 06:00] VITALS: BP 135/76
[2019-08-20] MEDS: LEVOTHYROXINE 50MCG TABLET (0.05MG) PO SCH (06:04)
[2019-08-20 07:58] LABS: BASO % 0.3 % (0.0-1.0); EOS # 0.2 10^3/uL (0.0-0.5); EOS % 2.3 % (0.0-3.0); HEMATOCRIT 36.8 % (36.0-47.0); HEMOGLOBIN 11.1 g/dl (12.0-15.5); LYMPH # 0.9 10^3/uL (1.5-5.0); LYMPH % 13.3 % (24.0-44.0); MEAN CORPUSCULAR HEMOGLOBIN 28.8 pg (27.0-33.0); MEAN CORPUSCULAR HGB CONC 30.2 g/dl (32.0-36.5); MEAN CORPUSCULAR VOLUME 95.6 fl (80.0-96.0); MONO # 0.6 10^3/uL (0.0-0.8); MONO % 8.9 % (0.0-5.0); NEUTROPHILS # 5.2 10^3/uL (1.5-8.5); NEUTROPHILS % 74.9 % (36.0-66.0); PLATELET COUNT, AUTOMATED 176 10^3/uL (150-450); RED BLOOD COUNT 3.85 10^6/uL (4.00-5.40)
[2019-08-20] MEDS: HumaLOG INSULIN (NovoLOG) PER UNIT SC SCH ×2 (08:07→12:26)
[2019-08-20] MEDS: LEVEMIR (INSULIN DETEMIR) 1 UNITS/0.01ML SC SCH (08:08)
[2019-08-20] MEDS: DICLOFENAC EPOLAMINE 1.3 % PATCH TOP SCH (08:08)
[2019-08-20] MEDS: TORSEMIDE 20 MG TAB PO SCH ×2 (08:09→16:30)
[2019-08-20] MEDS: rOPINIRole 1MG TAB PO SCH (08:09)
[2019-08-20] MEDS: SENNA 8.6 MG TAB (SENOKOT) PO SCH (08:09)
[2019-08-20] MEDS: FOLIC ACID 1 MG TAB PO SCH ×2 (08:09→16:30)
[2019-08-20] MEDS: SPIRONOLACTONE 12.5MG PER 1/2 TABLET PO SCH (08:09)
[2019-08-20] MEDS: DIGOXIN 0.125 MG TAB PO SCH (08:09)
[2019-08-20] MEDS: CitaloPRAM (CeleXA) 20 MG TAB PO SCH (08:10)
[2019-08-20] MEDS: POTASSIUM CHLORIDE 10 MEQ SR TABLET PO SCH (08:10)
[2019-08-20] MEDS: DOCUSATE SODIUM 100 MG CAP PO SCH (08:10)
[2019-08-20] MEDS: MONTELUKAST 10 MG TAB PO SCH (08:10)
[2019-08-20] MEDS: FERROUS GLUCONATE 324 MG TAB PO SCH ×2 (08:10→16:30)
[2019-08-20] MEDS: APIXABAN 2.5 MG TAB (ELIQUIS) PO SCH (08:10)
[2019-08-20] MEDS: PANTOPRAZOLE 40MG TAB (PROTONIX) PO SCH (08:10)
[2019-08-20] MEDS: SODIUM CHLORIDE 0.9% INJ 10 ML SYR IV SCH (08:11)
[2019-08-20] MEDS: ACETAMINOPHEN TAB 650MG DOSE (2X325MG) PO PRN (08:12)
[2019-08-20 08:15] VITALS: BP 163/82
[2019-08-20] MEDS: METOPROLOL SUCC (TopROL XL) 100MG *XL* TAB PO SCH (08:15)
[2019-08-20 08:32] LABS: BLOOD UREA NITROGEN 15 MG/DL (7-18); CALCIUM LEVEL 8.2 MG/DL (8.8-10.2); CARBON DIOXIDE LEVEL 45 MEQ/L (21-32); CHLORIDE LEVEL 95 MEQ/L (98-107); CREATININE FOR GFR 0.68 MG/DL (0.55-1.30); GLOMERULAR FILTRATION RATE > 60.0 (>45); GLUCOSE, FASTING 130 MG/DL (70-100); POTASSIUM SERUM 3.8 MEQ/L (3.5-5.1); SODIUM LEVEL 143 MEQ/L (136-145)
[2019-08-20] MEDS: MECLIZINE 25 MG TABLET PO PRN (12:26)
[2019-08-20 14:00] VITALS: BP 131/84
--- NOTE | 2019-08-20 15:13 | DS.PDOC ---
Discharge Summary General Date of Admission Aug 13, 2019 at 16:56 Date of Discharge 08/20/19 Attending Physician: WISAM REINOSO MD Specialist/Consultants Involve PCP: Shawna Marti Discharge Summary PROCEDURES PERFORMED DURING STAY: None. ADMITTING/DISCHARGE DIAGNOSES: 1. Acute on chronic hypercapnic respiratory failure 2. Lymphedema 3. Chronic diastolic heart failure 4. Morbid obesity/ SUZIE/ restrictive lung dis from obesity/obesity hypoventilation/ pulmonary hypertension likely severe/corpulmonale on BiPAP 5. Insulin-dependent diabetes mellitus 6. History of asthma 7. Atrial fibrillation 8. Hypertension 9. Hypothyroidism 10. Restless leg syndrome HISTORY OF PRESENT ILLNESS/HOSPITAL COURSE: 68 year old female with Supermorbid obesity inspite of gastric bypass surgery, mostly remains in bed on her left side, SUZIE, Corpulmonale, asthma/copd, systolic and diastolic CHF, Afib, diabetes, hypertension presented to the ED with 3 days history of severe pain and swelling of the left breast, left abdominal wall extending to the left groin. The pain is stretching and dull aching in type about 7/10 extending from the left breast to the groin. Patient reports she is in bed mostly specially in the last 4 months has not been out of the house. She always lays on her left side. She has noticed swelling of the on the left side of her body gradually increasing over the last month which really became worse over the past 3 days with severe pain, stretching , heaviness and hardness of the breast and abdominal wall. She was admitted for possible breast, abdominal wall cellulitis, lymphedema, although over the course of hospitalization cellulitis was thought to be likely slightly. Patient tolerated therapy well, was placed on BiPAP for hypercapnic respiratory failure. Patient also diuresed well with improvement of her pulmonary congestion. She is currently feeling much better. Denies any chest pain, shortness breath or palpitations. Patient is hemodynamically stable. Discharged home with home aides. DISCHARGE MEDICATIONS: Please see below. ALLERGIES: Please see below. PHYSICAL EXAMINATION ON DISCHARGE: Vitals: (see below) General: No acute distress, laying comfortably in bed. HEENT: Moist mucous membranes. Neck: No JVD or lymphadenopathy Cardiac: RRR, No murmurs Pulm:Diminished b/l. No wheezing, rhonchi Abd: NT/ND + BS; obese Ext: No edema or cyanosis LABORATORY DATA: Please see below. PROGNOSIS: Fair ACTIVITY: As tolerated. DIET: Low Na, Consistent carb diet; 1500cc fluid restriction DISCHARGE PLAN/DISPOSITION: [facility] DISCHARGE INSTRUCTIONS: 1. F/u with PCP, Pulmonary, Cardiology in 1-2 weeks. Return to ED if symptoms worsen. Follow up with her primary care physician for weight loss management. DISCHARGE CONDITION: Stable. TIME SPENT ON DISCHARGE: 34 min Vital Signs/I&Os Vital Signs Date Time Temp Pulse Resp B/P (MAP) Pulse Ox O2 Delivery O2 Flow Rate FiO2 08/20/19 14:00 98.5 76 18 131/84 (100) 97 Nasal Cannula 2.0 08/17/19 04:00 40 I&O- Last 24 Hours up to 6 AM 08/20/19 05:59 Intake Total 1260 ml Output Total 2525 ml Balance -1265 ml Laboratory Data Labs 24H Laboratory Tests 2 08/19/19 16:28: Bedside Glucose (Misc Panel) 132H 08/19/19 20:11: Bedside Glucose (Misc Panel) 159H 08/20/19 07:40: Immature Granulocyte % (Auto) 0.3, Neutrophils (%) (Auto) 74.9H, Lymphocytes (%) (Auto) 13.3L, Monocytes (%) (Auto) 8.9H, Eosinophils (%) (Auto) 2.3, Basophils (%) (Auto) 0.3, Neutrophils # (Auto) 5.2, Lymphocytes # (Auto) 0.9L, Monocytes # (Auto) 0.6, Eosinophils # (Auto) 0.2, Basophils # (Auto) 0.0, Nucleated Red Blood Cells % (auto) 0.0, Anion Gap 3L, Glomerular Filtration Rate > 60.0, Calcium Level 8.2L 08/20/19 07:50: Bedside Glucose (Misc Panel) 120H 08/20/19 11:33: Bedside Glucose (Misc Panel) 153H CBC/BMP Laboratory Tests 08/20/19 07:40 FSBS Laboratory Tests Test 08/19/19 16:28 08/19/19 20:11 08/20/19 07:50 08/20/19 11:33 Range/Units Bedside Glucose (Misc Panel) 132 159 120 153 80-115 MG/DL Microbiology Microbiology 08/13/19 Blood Culture - Final, Complete NO GROWTH AFTER 5 DAYS 08/13/19 Blood Culture - Final, Complete NO GROWTH AFTER 5 DAYS Discharge Medications Scheduled Apixaban (Eliquis) 2.5 Mg Tablet, 2.5 MG PO BID, (Reported) Atorvastatin Calcium (Atorvastatin Calcium) 80 Mg Tablet, 80 MG PO QHS, (Reported) Citalopram Hydrobromide (Citalopram HBr) 20 Mg Tablet, 20 MG PO DAILY, (Reported) Digoxin (Digoxin) 125 Mcg Tablet, 125 MCG PO DAILY, (Reported) Docusate Sodium (Docusate Sodium) 100 Mg Capsule, 100 MG PO BID Dulaglutide (Trulicity) 1.5 Mg/0.5 Ml Pen.injctr, 1.5 MG SC QWEEK, (Reported) SATURDAYS Ergocalciferol (Vitamin D2) (Vitamin D2) 50,000 Units Cap, 50,000 UNIT PO QWEEK, (Reported) WEDNESDAYS Ferrous Gluconate (Ferrous Gluconate) 324 Mg Tablet, 324 TAB PO BID, (Reported) 0800 AND 1600 Fluticasone Propionate (Flovent Hfa) 110 Mcg/Act Aer.w.adap, 1 PUFF INH BID, (Reported) 0800 AND 1600 Folic Acid (Folic Acid) 1 Mg Tab, 2 MG PO BID, (Reported) 0800 AND 1600 Insulin Glargine,Hum.rec.anlog (Lantus Solostar) 100 Unit/1 Ml Insuln.pen, 30 UNIT SC QAM, (Reported) Insulin Glargine,Hum.rec.anlog (Lantus Solostar) 100 Unit/1 Ml Insuln.pen, 40 UNITS SC QHS, (Reported) Insulin Lispro (Humalog Kwikpen U-100) 100 Unit/1 Ml Insuln.pen, 1 DOSE SC AC, (Reported) PER SLIDING SCALE NO INSULIN IS BELOW 131 Levothyroxine Sodium (Levothyroxine Sodium) 50 Mcg Tablet, 50 MCG PO DAILY, (Reported) Lisinopril (Lisinopril) 5 Mg Tablet, 5 MG PO DAILY, (Reported) Magnesium Oxide (Magnesium Oxide) 400 Mg Tablet, 400 MG PO BID, (Reported) 0800 AND 1600 Metformin HCl (Metformin HCl) 1,000 Mg Tab, 1,000 MG PO BID, (Reported) 0800 AND 1600 Metoprolol Succinate (Metoprolol Succinate) 100 Mg Tab.er.24h, 100 MG PO DAILY, (Reported) Montelukast Sodium (Montelukast Sodium) 10 Mg Tab, 10 MG PO DAILY, (Reported) [place]-3 Fatty Acids/Fish Oil (Fish Oil 1,000 mg Capsule) 1 Each Capsule, 1,000 MG PO TID, (Reported) 0800, 1200, AND 1600 Omeprazole (Omeprazole) 40 Mg Capsule.dr, 40 MG PO BID, (Reported) 0800 AND 1600 Potassium Chloride (Potassium Chloride) 20 Meq Tab.er.prt, 20 MEQ PO DAILY, (Reported) Ropinirole HCl (Ropinirole HCl) 1 Mg Tab, 1 MG PO BID, (Reported) 0800 AND 2200 Senna (Senna Lax) 8.6 Mg Tablet, 2 TAB PO BID Spironolactone (Spironolactone) 25 Mg Tablet, 12.5 MG PO DAILY, (Reported) Torsemide (Torsemide) 20 Mg Tablet, 40 MG PO BID@09,17 [Marijuana] CAP, 2 CAP PO TID, (Reported) 0800, 1600, AND 2200 Scheduled PRN Acetaminophen (Tylenol Extra Strength) 500 Mg Tablet, 2,000 MG PO DAILY PRN for HEADACHE, (Reported) Albuterol Sulfate (Ventolin Hfa) 18 Gm Hfa.aer.ad, 2 PUFF INH Q4H PRN for SHORTNESS OF BREATH, (Reported) Cetirizine HCl (Cetirizine HCl) 10 Mg Tablet, 10 MG PO DAILY PRN for ALLERGY SYMPTOMS, (Reported) Ipratropium/Albuterol Sulfate (Iprat-Albut 0.5-3(2.5) mg/3 ml) 3 Ml Ampul.neb, 1 FAZAL INH QID PRN for SOB/WHEEZING, (Reported) Allergies Coded Allergies: TAPE (Verified Allergy, Intermediate, rash, 01/14/19) ellies WISAM REINOSO MD Aug 20, 2019 15:13
[2019-08-20] MEDS: SODIUM CHLORIDE 0.9% INJ 10 ML SYR IV PRN (16:30)
== END 2019-08-20 17:26 | disposition home health service (06) | DRG 606 ==
LOC: EDBD 13:18 → M ED 13:18 → M ED INP 16:56 → M MSPAV 17:59 → M ICU 23:48 → M MSPAV 08-17 09:16
PROVIDERS: ADMIT Internal Medicine Nephrology; ATTEND Internal Medicine
DX: I89.0 Lymphedema, not elsewhere classified (principal); J96.22 Acute and chronic respiratory failure with hypercapnia; J96.11 Chronic respiratory failure with hypoxia; I50.42 Chronic combined systolic (congestive) and diastolic (congestive) heart failure; E66.2 Morbid (severe) obesity with alveolar hypoventilation; Z68.45 Body mass index [BMI] 70 or greater, adult; I48.91 Unspecified atrial fibrillation; E03.9 Hypothyroidism, unspecified; I27.20 Pulmonary hypertension, unspecified; I11.0 Hypertensive heart disease with heart failure; I27.81 Cor pulmonale (chronic); E11.9 Type 2 diabetes mellitus without complications; J45.909 Unspecified asthma, uncomplicated; Z98.84 Bariatric surgery status; Z79.4 Long term (current) use of insulin; Z79.899 Other long term (current) drug therapy; Z79.01 Long term (current) use of anticoagulants; G25.81 Restless legs syndrome; E87.70 Fluid overload, unspecified; Z85.42 Personal history of malignant neoplasm of other parts of uterus; Z91.19 Patient's noncompliance with other medical treatment and regimen; E87.6 Hypokalemia

== ENCOUNTER 2019-11-18 16:42 | Inpatient (IN) | payer MEDICARE ==
[~2019-11-18] VITALS: Ht 152.4 cm; Wt 164.9 kg
[~2019-11-18 16:42] MED LIST changes: -ALL10TAB29 PO; -ASPI81TA85 PO; +ASPI81TA86 PO; +CETI-24 PO; +CITA20TA6 PO; +SENN18TA PO; +TORS20TA2 PO; +VITA50005 PO
[2019-11-18 17:52] LABS: BASO % 0.3 % (0.0-1.0); EOS # 0.1 10^3/uL (0.0-0.5); EOS % 0.7 % (0.0-3.0); HEMATOCRIT 35.4 % (36.0-47.0); HEMOGLOBIN 10.4 g/dl (12.0-15.5); LYMPH # 0.6 10^3/uL (1.5-5.0); LYMPH % 7.9 % (24.0-44.0); MEAN CORPUSCULAR HEMOGLOBIN 28.4 pg (27.0-33.0); MEAN CORPUSCULAR HGB CONC 29.4 g/dl (32.0-36.5); MEAN CORPUSCULAR VOLUME 96.7 fl (80.0-96.0); MONO # 0.7 10^3/uL (0.0-0.8); MONO % 9.7 % (0.0-5.0); NEUTROPHILS # 6.2 10^3/uL (1.5-8.5); PLATELET COUNT, AUTOMATED 241 10^3/uL (150-450); RED BLOOD COUNT 3.66 10^6/uL (4.00-5.40); WHITE BLOOD COUNT 7.6 10^3/uL (4.0-10.0)
[2019-11-18 18:06] LABS: INR 1.14; PROTHROMBIN TIME 14.9 SECONDS (12.5-14.3)
--- NOTE | 2019-11-18 18:19 | REPVR ---
PROCEDURE INFORMATION: Exam: XR Left Ankle Exam date and time: 11/18/2019 5:28 PM Age: 68 years old Clinical indication: Pain and injury or trauma; Fall; Sprain or strain; Ankle; Left TECHNIQUE: Imaging protocol: XR Left ankle. Views: 3 or more views. COMPARISON: No relevant prior studies available. FINDINGS: Bones/joints: There is a 2 cm by 7 mm exostosis along the inferior margin of the calcaneus extending to the calcaneal neck. Osteophyte/exostosis formation noted plantar aspect of the calcaneus and at the attachment of the Achilles with associated cystic degenerative changes. There is irregularity of the cortical margin distal fibula but thought to be related to chronic change. Large osteophyte at the distal fibula noted. Talar dome appears intact. There is no evidence of acute fracture. There is degenerative change and osteophyte formation of the tarsal bones. Soft tissues: There is prominent swelling of the ankle on the medial and lateral side. IMPRESSION: 1. Severe osteophyte formation exostosis formation along the margins of the calcaneus as described above. 2. Moderate soft tissue swelling. Electronically signed by: Josh Raymond On 11/18/2019 18:19:05 PM
--- NOTE | 2019-11-18 18:25 | REPVR ---
PROCEDURE INFORMATION: Exam: XR Chest, 1 View Exam date and time: 11/18/2019 5:53 PM Age: 68 years old Clinical indication: Other: Weakness TECHNIQUE: Imaging protocol: XR of the chest Views: 1 view. COMPARISON: CT Chest with contrast 08/13/2019 3:15 PM FINDINGS: Lungs: There is mild prominence of the vascular markings which may be secondary to mild congestive changes. Pleural space: There is no evidence of pneumothorax. Heart/Mediastinum: There is severe cardiomegaly. Vasculature: A right trans jugular line is in place with its tip in the superior vena cava. Bones/joints: Unremarkable. IMPRESSION: 1. Severe cardiomegaly. Possible mild congestive change. 2. Right-sided Port-A-Cath with its tip in the superior vena cava. Electronically signed by: Josh Raymond On 11/18/2019 18:25:16 PM
[2019-11-18 18:34] LABS: BILIRUBIN,DIRECT 0.2 MG/DL (0.0-0.2); BILIRUBIN,TOTAL 0.5 MG/DL (0.2-1.0); DIGOXIN LEVEL 0.3 NG/ML (0.5-2.0); MAGNESIUM LEVEL 1.9 MG/DL (1.8-2.4); THYROID STIMULATING HORMONE 1.41 uIU/ML (0.358-3.740); TOTAL PROTEIN 6.5 GM/DL (6.4-8.2)
[2019-11-18] MEDS ORDERED: FERR1TAB8 PO (18:53)
[2019-11-18] MEDS ORDERED: VITMTA PO (18:53)
[2019-11-18] MEDS ORDERED: MAGN500T6 PO (18:53)
[2019-11-18] MEDS ORDERED: NYST1POW9 TOP (18:53)
[2019-11-18] MEDS ORDERED: BETA0.0543 TOP (18:53)
[2019-11-18] MEDS ORDERED: OLOP2.5D3 OU (18:53)
[2019-11-18] MEDS ORDERED: TORS20TA2 PO (18:53)
[2019-11-18] MEDS ORDERED: ELIQ5TAB PO (18:53)
[2019-11-18] MEDS ORDERED: ACET250T2 PO (18:53)
[2019-11-18] MEDS ORDERED: MECL12.589 PO (18:53)
[2019-11-18] MEDS ORDERED: ALBUTEROL 90 MCG/ACT 8GM HFA INHALER INH PRN (19:30)
[2019-11-18] MEDS ORDERED: GLUCAGON INJ 1MG VIAL SC PRN (20:00)
[2019-11-18] MEDS ORDERED: DEXTROSE 50% 50 ML SYRINGE IV PRN (20:00)
[2019-11-18] MEDS ORDERED: GLUCOSE 4GM CHEW TABLET PO PRN (20:00)
[2019-11-18] MEDS: FLUTICASONE HFA 110 MCG 12 GM INHALER (FLOVENT) INH SCH (20:17)
[2019-11-18 22:49] VITALS: BP 118/80
[2019-11-18] MEDS: HumaLOG INSULIN (NovoLOG) PER UNIT SC SCH (23:56)
[2019-11-18] MEDS: LEVEMIR (INSULIN DETEMIR) 1 UNITS/0.01ML SC SCH (23:56)
[2019-11-19] MEDS: rOPINIRole 1MG TAB PO SCH ×3 (00:11→20:52)
[2019-11-19] MEDS: ATORVASTATIN 20 MG TAB PO SCH ×2 (00:11→20:52)
[2019-11-19] MEDS: FOLIC ACID 1 MG TAB PO SCH ×3 (00:11→20:52)
[2019-11-19] MEDS: ACETAMINOPHEN TAB 650MG DOSE (2X325MG) PO PRN ×2 (00:12→08:18)
[2019-11-19] MEDS: acetaZOLAMIDE 250 MG TAB PO SCH ×3 (00:12→20:52)
[2019-11-19] MEDS: MONTELUKAST 10 MG TAB PO SCH ×2 (00:13→20:52)
[2019-11-19] MEDS: APIXABAN 5 MG TAB (ELIQUIS) PO SCH ×3 (00:13→20:52)
[2019-11-19] MEDS: TORSEMIDE 20 MG TAB PO SCH ×2 (00:13→17:07)
[2019-11-19] MEDS: NYSTATIN 100,000 UNITS/GM TOPICAL PWD 15 GM TOP SCH ×3 (00:21→20:53)
--- NOTE | 2019-11-19 02:18 | HPEPDOC ---
General Date of Admission Nov 18, 2019 at 19:21 Date of Service: Nov 19, 2019 Attending Physician: JAZMIN CACERES MD Chief Complaint The patient is a 68-year-old female admitted with a reason for visit of Ankle Sprain. History of Present Illness HPI: Pt is a 68 year old female presents to the ED with cc of generalized weakness and mechanical fall yesterday. Pt states that she was climbing a platform when her legs gave out and she fell and denies any LOC. She states that she twisted her L ankle really badly s/p fall and has been in a boot since. She was also just discharged from [facility] where she was given a 8 day course of levaquin 750mg PO daily for her RLL PNA, which she has not yet completed. Pt denies any CP, fever, chills, n/v. states she has some sob and has had a bout of diarrhea yesterday that has since resolved. PMHx: Systolic and diastolic CHF. EF of 45% Chronic right heart failure Morbid obesity BMI 71 Mostly bed bound. IDDM. SUZIE on CPAP Atrial fibrillation. Asthma/COPD Peptic ulcer disease. Chronic hypertension. Hypothyroidism . Restless leg syndrome Large ventral hernia. status post gastric bypass. Status post right Port-A-Cath placement. Left breast lumpectomy Bilateral axillary dissection Endometrial cancer s/p Hystrectomy Family Hx: Heart disease Social hx: Former smoker Denies illicit drug or ETOH use ALL: see above LABS: see below IMAGING: CXR : IMPRESSION: 1. Severe cardiomegaly. Possible mild congestive change. 2. Right-sided Port-A-Cath with its tip in the superior vena cava. Ankle XR IMPRESSION: 1. Severe osteophyte formation exostosis formation along the margins of the calcaneus as described above. 2. Moderate soft tissue swelling. Home Medications Scheduled Acetazolamide (Acetazolamide) 250 Mg Tablet, 500 MG PO BID, (Reported) Apixaban (Eliquis) 5 Mg Tablet, 5 MG PO BID, (Reported) Atorvastatin Calcium (Atorvastatin Calcium) 80 Mg Tablet, 80 MG PO QHS, (Reported) Cetirizine HCl (Cetirizine HCl) 10 Mg Tablet, 10 MG PO DAILY, (Reported) Citalopram Hydrobromide (Citalopram HBr) 20 Mg Tablet, 20 MG PO DAILY, (Reported) Digoxin (Digoxin) 125 Mcg Tablet, 125 MCG PO DAILY, (Reported) Dulaglutide (Trulicity) 1.5 Mg/0.5 Ml Pen.injctr, 1.5 MG SC QWEEK, (Reported) [place] Ergocalciferol (Vitamin D2) (Vitamin D2) 50,000 Units Cap, 50,000 UNIT PO QWEEK, (Reported) [place] Ferrous Sulfate (Ferrous Sulfate) 325 Mg Tablet, 325 MG PO WM, (Reported) Fluticasone Propionate (Flovent Hfa) 110 Mcg/Act Aer.w.adap, 1 PUFF INH BID, (Reported) 0800 AND 1600 Folic Acid (Folic Acid) 1 Mg Tab, 2 MG PO BID, (Reported) 0800 AND 1600 Insulin Glargine,Hum.rec.anlog (Lantus Solostar) 100 Unit/1 Ml Insuln.pen, 30 UNIT SC QAM, (Reported) Insulin Glargine,Hum.rec.anlog (Lantus Solostar) 100 Unit/1 Ml Insuln.pen, 40 UNITS SC QHS, (Reported) Insulin Lispro (Humalog Kwikpen U-100) 100 Unit/1 Ml Insuln.pen, 1 DOSE SC AC, (Reported) PER SLIDING SCALE NO INSULIN IS BELOW 131 Levothyroxine Sodium (Levothyroxine Sodium) 50 Mcg Tablet, 50 MCG PO DAILY, (Reported) Lisinopril (Lisinopril) 5 Mg Tablet, 5 MG PO DAILY, (Reported) Magnesium Gluconate (Magnesium Gluconate) 27 Mg Tablet, 500 MG PO BID, (Reported) Metformin HCl (Metformin HCl) 1,000 Mg Tab, 1,000 MG PO BID, (Reported) 0800 AND 1600 Metoprolol Succinate (Metoprolol Succinate) 100 Mg Tab.er.24h, 100 MG PO DAILY, (Reported) Montelukast Sodium (Montelukast Sodium) 10 Mg Tab, 10 MG PO QHS, (Reported) Multivitamins (Thera M Plus Tablet) 1 Each Tablet, 1 TAB PO DAILY, (Reported) Olopatadine HCl (Pataday) 0.2% 2.5ML Drops, 1 DROP OU BID, (Reported) Ideal-3 Fatty Acids/Fish Oil (Fish Oil 1,000 mg Capsule) 1 Each Capsule, 1,000 MG PO TID, (Reported) 0800, 1200, AND 1600 Omeprazole (Omeprazole) 40 Mg Capsule.dr, 40 MG PO BID, (Reported) 0800 AND 1600 Ropinirole HCl (Ropinirole HCl) 1 Mg Tab, 1 MG PO BID, (Reported) Spironolactone (Spironolactone) 25 Mg Tablet, 25 MG PO DAILY, (Reported) Torsemide (Torsemide) 20 Mg Tablet, 60 MG PO QPM, (Reported) [Marijuana] CAP, 1 CAP PO Q6H, (Reported) Scheduled PRN Acetaminophen (Tylenol Extra Strength) 500 Mg Tablet, 1,000 MG PO DAILY PRN for HEADACHE, (Reported) Albuterol Sulfate (Ventolin Hfa) 18 Gm Hfa.aer.ad, 2 PUFF INH Q4H PRN for SHORTNESS OF BREATH, (Reported) Betamethasone Dipropionate (Betamethasone Dipropionate) 0.05% Cream..g., 1 APLCT TOP BID PRN for PSORIASIS, (Reported) APPLY TO ELBOWS Ipratropium/Albuterol Sulfate (Iprat-Albut 0.5-3(2.5) mg/3 ml) 3 Ml Ampul.neb, 1 FAZAL INH QID PRN for SOB/WHEEZING, (Reported) Meclizine HCl (Meclizine HCl) 12.5 Mg Tablet, 12.5 MG PO TID PRN for DIZZINESS, (Reported) Nystatin (Nystatin Powder) 15 Gm Powder, 1 APLCT TOP BID PRN for RASH, (Reported) APPLY TO GROIN Allergies Coded Allergies: TAPE (Verified Allergy, Intermediate, rash, 01/14/19) adhesives A-FIB/CHADSVASC A-FIB History Current/History of A-Fib/PAF?: Yes Current PO Anticoag Therapy: Yes Review of Systems Constitutional: Reports: Weakness; Denies: Chills, Fever, Malaise, Night Sweats Eyes: Denies: Pain ENT: Denies: Head Aches Pulmonary: Reports: Dyspnea, Cough; Denies: Pleuritic Chest Pain Cardiovascular: Reports: Edema; Denies: Chest Pain, Palpitations Gastrointestinal: Reports: Diarrhea; Denies: Nausea, Vomiting, Abdominal Pain Genitourinary: Denies: Dysuria, Frequency Endocrine: Denies: Polyuria Musculoskeletal: Denies: Neck Pain, Arm Pain, Hand Pain Neurological: Reports: Weakness; Denies: Numbness, Incoordination, Change in speech, Confusion Physical Examination General Exam: Positive: Alert, Cooperative, No Acute Distress Eye Exam: Positive: PERRLA, Conjunctiva & lids normal, Sclera icteric ENT Exam: Positive: Atraumatic, Mucous membr. moist/pink, Tongue Midline; Negative: Pharyngeal Edema Neck Exam: Positive: Supple, Lymphadenopathy; Negative: JVD Chest Exam: Positive: Clear to auscultation, Normal air movement; Negative: Rales, Rhonchi, Wheezing, Diminished Heart Exam: Positive: Tachycardic, Irregular Rhythm, Normal S1, Normal S2; Negative: Gallops, Murmurs, Rubs Telemetry: Positive: Atrial fibrillation Abdomen Exam: Positive: Normal bowel sounds (obese abdomen ), Soft; Negative: Tenderness (unable to appreciate organomegaly 2/2 to the size of obese abdomen) Extremity Exam: Positive: Edema (3+ lower leg edema in R; 2+ in L leg); Negative: Clubbing, Cyanosis, Tenderness Skin Exam: Negative: Rash, Breakdown, Lesion Neuro Exam: Positive: Strength at 5/5 X4 ext, Cranial Nerves 3-12 NL Psych Exam: Positive: Mental status NL, Oriented x 3; Negative: Anxiety Vital Signs Vital Signs Date Time Temp Pulse Resp B/P (MAP) Pulse Ox O2 Delivery O2 Flow Rate FiO2 11/18/19 22:49 98.1 77 20 118/80 (93) 96 Nasal Cannula 3.0 Laboratory Data Labs 24H Laboratory Tests 2 11/18/19 17:11: Lactic Acid Level 0.7 11/18/19 17:24: Immature Granulocyte % (Auto) 0.4, Neutrophils (%) (Auto) 81.0H, Lymphocytes (%) (Auto) 7.9L, Monocytes (%) (Auto) 9.7H, Eosinophils (%) (Auto) 0.7, Basophils (%) (Auto) 0.3, Neutrophils # (Auto) 6.2, Lymphocytes # (Auto) 0.6L, Monocytes # (Auto) 0.7, Eosinophils # (Auto) 0.1, Basophils # (Auto) 0.0, Nucleated Red Blood Cells % (auto) 0.0, Prothrombin Time 14.9H, Prothromb Time International Ratio 1.14, Magnesium Level 1.9, Total Bilirubin 0.5, Direct Bilirubin 0.2, Aspartate Amino Transf (AST/SGOT) 7, Alanine Aminotransferase (ALT/SGPT) 17, Alkaline Phosphatase 132H, Total Protein 6.5, Albumin 3.0L, Albumin/Globulin Ratio 0.9L, Lipase 156, Thyroid Stimulating Hormone (TSH) 1.410, Digoxin Level 0.3L 11/18/19 17:41: POC Glucose (Misc Panel) 139H, POC Sodium (Misc Panel) 143, POC Potassium (Misc Panel) 4.5, POC Chloride (Misc Panel) 93L, POC Total CO2 (Misc Panel) 39.0H, POC Blood Urea Nitrogen (Misc Panel 20, POC Ionized Calcium (Misc Panel) 4.9, POC Creatinine (Misc Panel) 0.7, POC Hematocrit (Misc Panel) 35.0L 11/18/19 17:42: POC Troponin I (Misc) 0.00 11/18/19 23:16: Bedside Glucose (Misc Panel) 135H 11/18/19 23:57: Urine Color YELLOW, Urine Appearance CLEAR, Urine pH 5.0, Urine Specific [place] 1.024, Urine Protein NEGATIVE, Urine Glucose (UA) NEGATIVE, Urine Ketones NEGATIVE, Urine Blood NEGATIVE, Urine Nitrite NEGATIVE, Urine Bilirubin NEGATIVE, Urine Urobilinogen 0.2, Urine Leukocyte Esterase NEGATIVE, Urine WBC (Auto) 1, Urine RBC (Auto) 1, Urine Hyaline Casts (Auto) 0, Urine Bacteria ( Auto) NEGATIVE, Urine Squamous Epithelial Cells 3, Urine Sperm (Auto) CBC/BMP Laboratory Tests 11/18/19 17:24 Assessment/Plan Pt is a 68 year old female presents to the ED with cc of generalized weakness and mechanical fall yesterday. Pt states that she was climbing a platform when her legs gave out and she fell and denies any LOC. She will be admitted as inpat ient and social work consult for placement. Plan / VTE VTE Prophylaxis Ordered?: Yes Plan Plan #Mechanical fall - Imaging wnl in ER - generalized weakness and legs gave out when she was climbing a platform. no LOC - Case mgmt for placement - PT eval and treat #Afib RVR - continue eliquis - continue metoprolol - continue digxoin - EKG- shows pt is still in afib bit w/ sustained HR -decreased atorvastatin to 40mg po daily #Systolic and diastolic CHF. EF of 45% - Continue digoxin - continue spironolactone - continue torsemide - 3+ pitting edema on RLE; 2+ on L - U/S venous doppler of bilateral LE ordered- pending #Anemia likely of chronic disease - iron profile ordered -ferritin, tibc ordered - B12, folate ordered - FOBT pending - c/w home dose of iron #COPD - not in exacerbation - duonebs - O2 titrate 02 88%-92% #CAPNA - Recently D/Cd from [facility] with levaquin for RLL PNA - continue IV levaquin for total of 7 more days #DM2 - Metformin held - Humalog SSI #hypothyroidism - Continue synthroid #GERD - decreased protonix to 40mg PO daily Restless leg syndrome - continue ropinorole Diet:2g Sodium and consistent carb IVF: none GI ppx: protonix 40mg daily Code: Full GME ATTESTATION GME ATTESTATION My faculty preceptor for this patient encounter was physically present during the encounter and was fully available. All aspects of the patient interview, examination, medical decision making process, and medical care plan development were reviewed and approved by the faculty preceptor. The faculty preceptor is aware and concurs with the plan as stated in the body of this note and will attest to such by his/her cosignature. ATTENDING NOTE ISarah, have independently examined this patient and performed my own physical exam, as well as reviewed the documentation and edited where necessary. I have discussed in detail with the resident / student the findings and plan of treatment as documented by the resident / student and edited their note. I agree with their findings and treatment plan and have edited their documentat ion. I will continue to follow the patient during this hospital stay. Sarah Eli DO Nov 19, 2019 02:18 JAZMIN CACERES MD Nov 19, 2019 06:45
[2019-11-19] MEDS: LevoFLOXacin IV 750 MG in IV 1 EA IV SCH (03:14)
[2019-11-19] MEDS: LEVOTHYROXINE 50MCG TABLET (0.05MG) PO SCH (05:41)
[2019-11-19 05:58] LABS: HEMOGLOBIN 9.5 g/dl (12.0-15.5); MEAN CORPUSCULAR HEMOGLOBIN 27.4 pg (27.0-33.0); MEAN CORPUSCULAR HGB CONC 27.9 g/dl (32.0-36.5); PLATELET COUNT, AUTOMATED 224 10^3/uL (150-450); RED BLOOD COUNT 3.47 10^6/uL (4.00-5.40); WHITE BLOOD COUNT 6.3 10^3/uL (4.0-10.0)
[2019-11-19 06:00] VITALS: BP 129/89
[2019-11-19 06:16] LABS: BLOOD UREA NITROGEN 19 MG/DL (7-18); CALCIUM LEVEL 8.7 MG/DL (8.8-10.2); CARBON DIOXIDE LEVEL 42 MEQ/L (21-32); CHLORIDE LEVEL 99 MEQ/L (98-107); GLOMERULAR FILTRATION RATE > 60.0 (>45); GLUCOSE, FASTING 140 MG/DL (70-100); POTASSIUM SERUM 3.8 MEQ/L (3.5-5.1); SODIUM LEVEL 142 MEQ/L (136-145)
--- NOTE | 2019-11-19 07:13 | REPVR ---
PROCEDURE INFORMATION: Exam: US Duplex Lower Extremity Veins, Bilateral Exam date and time: 11/19/2019 7:02 AM Age: 68 years old Clinical indication: Other: Leg size difference; Additional info: Leg size different TECHNIQUE: Imaging protocol: Real-time duplex ultrasound of the extremities with 2-D jiménez scale, color Doppler flow and spectral waveform analysis with image documentation. Complete exam focused on the bilateral lower extremity veins. COMPARISON: US Duplex, Ext,LOWER veins,unilat 11/03/2018 3:50 PM FINDINGS: Right deep veins: Unremarkable. The common femoral, femoral, proximal profunda femoral and popliteal veins are patent without thrombus. Normal Doppler waveforms. Normal compressibility and/or augmentation response. Right superficial veins: Saphenofemoral junction is patent without thrombus. Left deep veins: Unremarkable. The common femoral, femoral, proximal profunda femoral and popliteal veins are patent without thrombus. Normal Doppler waveforms. Normal compressibility and/or augmentation response. Left superficial veins: Saphenofemoral junction is patent without thrombus. IMPRESSION: Significantly limited exam due to patient's body habitus . Within limitations of the exam, no sonographic evidence of deep vein thrombosis in the right or left lower extremities. Electronically signed by: Srinivasa Garcia On 11/19/2019 07:13:18 AM
--- NOTE | 2019-11-19 07:27 | ECGEPIP ---
[facility] - ED Test Date: 2019-11-18 Pat Name: BLAIR BREWSTER Department: Room: - Gender: Female [employer]: MINOR : 1950 Requested By: Martita Phipps Order Number: [id number] Reading MD: Pako Cortés Measurements Intervals University Rate: 96 P: SC: 0 QRS: -2 QRSD: 94 T: 102 QT: 337 QTc: 427 Interpretive Statements ATRIAL FIBRILLATION POSSIBLE ANTERIOR MYOCARDIAL INFARCTION, PROBABLY OLD SIMILAR TO 08/13/19 Electronically Signed on 11-19-2019 7:26:52 EDT by Pako Cortés
[2019-11-19] MEDS: FLUTICASONE HFA 110 MCG 12 GM INHALER (FLOVENT) INH SCH ×2 (07:57→19:28)
[2019-11-19] MEDS: OMEPRAZOLE 20 MG CAP PO SCH (08:17)
[2019-11-19] MEDS: SPIRONOLACTONE 25 MG TAB PO SCH (08:17)
[2019-11-19] MEDS: FERROUS SULFATE 325MG TAB PO SCH ×3 (08:17→17:07)
[2019-11-19] MEDS: HumaLOG INSULIN (NovoLOG) PER UNIT SC SCH ×4 (08:18→20:36)
[2019-11-19] MEDS: MULTIVITAMINS/MINERALS THERAP 1 TAB PO SCH (08:18)
[2019-11-19] MEDS: CitaloPRAM (CeleXA) 20 MG TAB PO SCH (08:18)
[2019-11-19] MEDS: LEVEMIR (INSULIN DETEMIR) 1 UNITS/0.01ML SC SCH ×2 (08:19→20:59)
[2019-11-19 08:33] LABS: FERRITIN 56 NG/ML (8-252); IRON (FE) 29 UG/DL (50-170); PERCENT SATURATION 8.7 % (13.2-45.0); TOTAL IRON BINDING CAPACITY 335 UG/DL (250-450)
[2019-11-19 08:41] LABS: FOLATE > 24.0 NG/ML (>5.4); VITAMIN B12 LEVEL 285 PG/ML (247-911)
[2019-11-19] MEDS ORDERED: lisinopriL 5 MG TAB PO SCH (09:00)
[2019-11-19] MEDS: METOPROLOL SUCC (TopROL XL) 100MG *XL* TAB PO SCH (09:00)
[2019-11-19] MEDS: LISINOPRIL *2.5 MG* TAB PO SCH (09:00)
[2019-11-19] MEDS: DIGOXIN 0.125 MG TAB PO SCH (09:53)
[2019-11-19 14:00] VITALS: BP 109/97
--- NOTE | 2019-11-19 14:25 | IPNPDOC ---
Text Note Date of Service The patient was seen on 11/19/19. NOTE HPI: Ms. Bryson is a 68 yo F that presented to the ED yesterday evening (11/17) complaining of generalized weakness and mechanical fall. She was discharged from [facility] yesterday after being diagnosed with PNA, went home and subsequently suffered a mechanical fall. SUBJECTIVE: No acute events overnight. Pt says that her ankle is still sore. She is not complaining of shortness of breath, chest pain, chest pressure, chills, night sweats nausea, vomiting, or diarrhea. She is eating and drinking without any issues. She is breathing on 3L nasal cannula. OBJECTIVE: VITAL SIGNS: please see below. GENERAL: Pt is seen lying in bed comfortably in no acute distress. HEENT: NC, AT, no scleral icterus, no pharyngeal erythema, PERRLA, EOMI NECK: No JVD or lymphadenopathy appreciated. CV: RRR, no murmurs, rubs, or gallops. RESP: CTAB, no rales, rhonchi, or wheezes, exam somewhat limited due to pt's body habitus. ABDOMEN: soft, obese, nondistended, nontender, bowel sounds present in all quadrants. EXTREMITIES: non pitting edema BL LE SKIN: chronic manifestations of hyperglycemia evident on hands and feet NEURO: AAOx3, CN III-XII grossly intact, no focal deficits PSYCH: Normal mood and affect. LABORATORY: please see below. IMAGING: -ANKLE XRay 11/18/2019: Impression "1. Severe osteophyte formation exostosis formation along the margins of the calcaneus as described above. 2. Moderate soft tissue swelling." -CHEST XRay 11/18/2019: Impression "1. Severe cardiomegaly. Possible mild congestive change. 2. Right-sided Port-A-Cath with its tip in the superior vena cava." -Vascular US 11/19/2019: Impression "Significantly limited exam due to patient's body habitus. Within limitations of the exam, no sonographic evidence of deep vein thrombosis in the right or left lower extremities." ASSESSMENT/PLAN: Ms. Bryson is a 68 yo F with a PMHx of IDDM, Afib on Elliquis and digoxin, asthma/COPD, and recent PNA, that presented to the ED complaining of weakness and ankle pain after a fall at home and was found to have soft tissue swelling of the L ankle. #. Mechanical fall -Imaging showed soft tissue swelling but no acute abnormalities (fx, dislocation, etc) -Neuro exam unremarkable/no deficits -PT/OT says not safe for discharge at this time -Pt will likely need placement as she is unable to care for herself at home -Case management is involved #. Community acquired PNA -Recently discharged from [facility] on Levaquin for RLL PNA -Continue levaquin for a total of 6 more days -Procalcitonin pending -Afebrile -On 3L home O2 nasal cannula #. Afib -Held morning dose of metoprolol succinate d/t hypotension -Continuing home elliquis and digoxin -Continue telemetry monitoring; no overnight events; on exam today pt still in afib #. HFrEF -Echo in 2019 showed EF of 45% -Appeared compensated on exam -Held morning dose of spironolactone d/t hypotension -Continuing home digoxin, acetazolamide, and torsemide -US venous doppler LE showed no evidence of DVT -2g Na diet #. HTN -Pressures well controlled -Continuing home lisinopril and atorvastatin -2g Na diet #. Hypochromic borderline macrocytic anemia -Presumed 2/2 to iron deficiency vs ACDz -Continue home dose of iron #. COPD vs obesity hypoventilation syndrome -Continue Duonebs and singulair -Continues on home 3L NC -Pt is in process of arranging for home Bipap to be brought in for overnight use, home settings are / -Titrate O2 88-92% #. IDDM -Holding home metformin -SSI -Home long acting equivalent dosing continued in the form of levemir -Hypoglycemic protocol #. Hypothyroidism -Continue synthroid #. GERD -Continue protonix 40 mg daily #. Restless leg syndrome -Continue ropinirole #. Morbid obesity, BMI 73.6 -Complicating care VS,Fishbone, I+O VS, Fishbone, I+O Laboratory Tests 11/18/19 17:24 11/19/19 05:18 Vital Signs Date Time Temp Pulse Resp B/P (MAP) Pulse Ox O2 Delivery O2 Flow Rate FiO2 11/19/19 09:53 95 11/19/19 09:30 3.0 10/9/20 09:00 90/55 11/19/19 06:00 98.6 18 99 Nasal Cannula I&O- Last 24 Hours up to 6 AM 11/19/19 05:59 Intake Total 150 ml Output Total 250 ml Balance -100 ml GME ATTESTATION GME ATTESTATION My faculty preceptor for this patient encounter was physically present during the encounter and was fully available. All aspects of the patient interview, examination, medical decision making process, and medical care plan development were reviewed and approved by the faculty preceptor. The faculty preceptor is aware and concurs with the plan as stated in the body of this note and will attest to such by his/her cosignature. ATTENDING NOTE Patient was seen and examined by me personally with the residents and the students. Agree with the above assessment and plan. KIMBERLY SANDOVAL OMS-3 Nov 19, 2019 14:24 AXEL SEQUEIRA MD Nov 26, 2019 13:59
[2019-11-19 22:00] VITALS: BP 113/68
[2019-11-20] MEDS: LevoFLOXacin IV 750 MG in IV 1 EA IV SCH (02:54)
[2019-11-20] MEDS: LEVOTHYROXINE 50MCG TABLET (0.05MG) PO SCH (05:55)
[2019-11-20 06:00] VITALS: BP_SYST 109; BP_SYST 110; BP_DIAS 56; BP_DIAS 69
[2019-11-20] MEDS: ACETAMINOPHEN TAB 650MG DOSE (2X325MG) PO PRN ×2 (06:15→15:09)
[2019-11-20] MEDS: FLUTICASONE HFA 110 MCG 12 GM INHALER (FLOVENT) INH SCH ×2 (07:23→19:30)
[2019-11-20 08:02] VITALS: BP 105/41
[2019-11-20] MEDS: NYSTATIN 100,000 UNITS/GM TOPICAL PWD 15 GM TOP SCH ×2 (08:18→21:59)
[2019-11-20] MEDS: LEVEMIR (INSULIN DETEMIR) 1 UNITS/0.01ML SC SCH ×2 (08:18→21:58)
[2019-11-20] MEDS: FERROUS SULFATE 325MG TAB PO SCH ×3 (08:19→17:37)
[2019-11-20] MEDS: HumaLOG INSULIN (NovoLOG) PER UNIT SC SCH ×4 (08:19→21:00)
[2019-11-20] MEDS: CitaloPRAM (CeleXA) 20 MG TAB PO SCH (08:19)
[2019-11-20] MEDS: APIXABAN 5 MG TAB (ELIQUIS) PO SCH ×2 (08:19→21:55)
[2019-11-20] MEDS: FOLIC ACID 1 MG TAB PO SCH ×2 (08:20→21:57)
[2019-11-20] MEDS: rOPINIRole 1MG TAB PO SCH ×2 (08:20→21:57)
[2019-11-20] MEDS: MULTIVITAMINS/MINERALS THERAP 1 TAB PO SCH (08:20)
[2019-11-20] MEDS: OMEPRAZOLE 20 MG CAP PO SCH (08:20)
[2019-11-20] MEDS: DIGOXIN 0.125 MG TAB PO SCH (08:20)
[2019-11-20] MEDS: LISINOPRIL *2.5 MG* TAB PO SCH (09:00)
[2019-11-20] MEDS: SPIRONOLACTONE 25 MG TAB PO SCH (09:00)
[2019-11-20] MEDS: METOPROLOL SUCC (TopROL XL) 100MG *XL* TAB PO SCH (09:00)
[2019-11-20] MEDS: acetaZOLAMIDE 250 MG TAB PO SCH ×2 (09:47→21:56)
--- NOTE | 2019-11-20 12:04 | IPNPDOC ---
Text Note Date of Service The patient was seen on 11/20/19. NOTE Subjective: No any acute events overnight. In the morning patient was febrile with temperature of 101 OBJECTIVE: VITAL SIGNS: please see below. GENERAL: Morbidly obese female HEENT: SHIKHA, EOMI CV: S1-S2 RESP: CTAB ABDOMEN: soft, obese, bowel sounds present EXTREMITIES: No swelling no cyanosis NEURO: AAOx3, CN III-XII grossly intact, no focal deficits PSYCH: Normal mood and affect. Assessment and plan Ms. Bryson is a 68 yo F with a PMHx of IDDM, Afib on Elliquis and digoxin, asthma/COPD, and recent PNA, that presented to the ED complaining of weakness and ankle pain after a fall at home and was found to have soft tissue swelling of the L ankle Mechanical fall Due to deconditioning secondary to morbid obesity PT/OT Community-acquired pneumonia Patient was recently diagnosed with right lower lobe pneumonia Continue levofloxacin Patient was febrile in the morning I will repeat blood culture. However procalcitonin negative Atrial fibrillation Blood pressure under control Continue oral targeted anticoagulation Diastolic CHF Not in acute exacerbation Continue home cardioprotective medication I's and O's Cardiac diet Hypertension Continue home cardioprotective medications with parameters anemia Most likely combined iron deficient and macrocytic anemia Will check stool for occult blood Continue iron replacement B12 level in the low level of normal range B12 by mouth Folate within normal limit Will check MMA Ankle sprain Pain management PT/OT Diabetes Diabetes diet Insulin sliding scale Detemir Hypothyroidism Continue levothyroxine GERD Continue Protonix Restless leg syndrome Could be secondary to iron deficiency anemia Continue ropinirole Morbid obesity Complicated care VS,Fishbone, I+O VS, Fishbone, I+O Vital Signs Date Time Temp Pulse Resp B/P (MAP) Pulse Ox O2 Delivery O2 Flow Rate FiO2 11/20/19 10:00 99.4 11/20/19 09:00 105/41 11/20/19 09:00 120 11/20/19 08:02 18 96 Nasal Cannula 2.0 I&O- Last 24 Hours up to 6 AM 11/20/19 06:00 Intake Total 1110 ml Output Total 800 ml Balance 310 ml ADRIÁN PARISH DO Nov 20, 2019 12:04
[2019-11-20 12:29] LABS: BASO % 0.1 % (0.0-1.0); EOS % 0.5 % (0.0-3.0); HEMATOCRIT 33.2 % (36.0-47.0); HEMOGLOBIN 9.6 g/dl (12.0-15.5); LYMPH # 0.8 10^3/uL (1.5-5.0); LYMPH % 9.6 % (24.0-44.0); MEAN CORPUSCULAR HEMOGLOBIN 27.9 pg (27.0-33.0); MEAN CORPUSCULAR HGB CONC 28.9 g/dl (32.0-36.5); MEAN CORPUSCULAR VOLUME 96.5 fl (80.0-96.0); MONO # 1.1 10^3/uL (0.0-0.8); MONO % 13.1 % (0.0-5.0); NEUTROPHILS # 6.4 10^3/uL (1.5-8.5); NEUTROPHILS % 76.3 % (36.0-66.0); PLATELET COUNT, AUTOMATED 215 10^3/uL (150-450); RED BLOOD COUNT 3.44 10^6/uL (4.00-5.40); WHITE BLOOD COUNT 8.4 10^3/uL (4.0-10.0)
[2019-11-20 12:47] LABS: BLOOD UREA NITROGEN 24 MG/DL (7-18); CALCIUM LEVEL 8.4 MG/DL (8.8-10.2); CARBON DIOXIDE LEVEL 44 MEQ/L (21-32); CHLORIDE LEVEL 95 MEQ/L (98-107); CREATININE FOR GFR 0.76 MG/DL (0.55-1.30); GLOMERULAR FILTRATION RATE > 60.0 (>45); GLUCOSE, FASTING 168 MG/DL (70-100); MAGNESIUM LEVEL 1.7 MG/DL (1.8-2.4); POTASSIUM SERUM 3.6 MEQ/L (3.5-5.1); SODIUM LEVEL 141 MEQ/L (136-145)
[2019-11-20 14:00] VITALS: BP 98/51
[2019-11-20 14:45] VITALS: BP 102/62
[2019-11-20] MEDS: TORSEMIDE 20 MG TAB PO SCH (17:00)
[2019-11-20 17:33] VITALS: BP 102/52
[2019-11-20] MEDS ORDERED: ONDANSETRON 4MG/2ML VIAL IV PRN (18:45)
[2019-11-20] MEDS: MOM 30ML SUSPENSION UDC PO PRN (21:55)
[2019-11-20] MEDS: MONTELUKAST 10 MG TAB PO SCH (21:56)
[2019-11-20] MEDS: ATORVASTATIN 20 MG TAB PO SCH (21:56)
[2019-11-20] MEDS: CYANOCOBALAMIN 500 MCG TAB PO SCH (21:56)
[2019-11-20 22:00] VITALS: BP 105/53
[2019-11-21] MEDS: LevoFLOXacin IV 750 MG in IV 1 EA IV SCH (03:08)
[2019-11-21 06:00] VITALS: BP 100/59
[2019-11-21] MEDS: LEVOTHYROXINE 50MCG TABLET (0.05MG) PO SCH (06:04)
[2019-11-21 06:41] LABS: BASO % 0.1 % (0.0-1.0); EOS # 0.1 10^3/uL (0.0-0.5); EOS % 0.9 % (0.0-3.0); HEMATOCRIT 33.6 % (36.0-47.0); HEMOGLOBIN 9.8 g/dl (12.0-15.5); LYMPH # 0.9 10^3/uL (1.5-5.0); MEAN CORPUSCULAR HGB CONC 29.2 g/dl (32.0-36.5); MONO # 0.8 10^3/uL (0.0-0.8); MONO % 11.1 % (0.0-5.0); NEUTROPHILS # 5.1 10^3/uL (1.5-8.5); NEUTROPHILS % 74.6 % (36.0-66.0); PLATELET COUNT, AUTOMATED 216 10^3/uL (150-450); WHITE BLOOD COUNT 6.9 10^3/uL (4.0-10.0)
[2019-11-21 07:04] LABS: BLOOD UREA NITROGEN 20 MG/DL (7-18); CALCIUM LEVEL 8.7 MG/DL (8.8-10.2); CARBON DIOXIDE LEVEL 43 MEQ/L (21-32); CHLORIDE LEVEL 95 MEQ/L (98-107); CREATININE FOR GFR 0.54 MG/DL (0.55-1.30); GLOMERULAR FILTRATION RATE > 60.0 (>45); GLUCOSE, FASTING 129 MG/DL (70-100); MAGNESIUM LEVEL 2.1 MG/DL (1.8-2.4); SODIUM LEVEL 138 MEQ/L (136-145)
[2019-11-21] MEDS: FLUTICASONE HFA 110 MCG 12 GM INHALER (FLOVENT) INH SCH ×2 (07:26→19:58)
[2019-11-21] MEDS: FOLIC ACID 1 MG TAB PO SCH ×2 (07:46→20:56)
[2019-11-21] MEDS: OMEPRAZOLE 20 MG CAP PO SCH (07:47)
[2019-11-21] MEDS: acetaZOLAMIDE 250 MG TAB PO SCH ×2 (07:47→20:56)
[2019-11-21] MEDS: APIXABAN 5 MG TAB (ELIQUIS) PO SCH ×2 (07:47→20:56)
[2019-11-21] MEDS: DIGOXIN 0.125 MG TAB PO SCH (07:47)
[2019-11-21] MEDS: rOPINIRole 1MG TAB PO SCH ×2 (07:47→20:57)
[2019-11-21] MEDS: FERROUS SULFATE 325MG TAB PO SCH ×3 (07:48→17:27)
[2019-11-21] MEDS: HumaLOG INSULIN (NovoLOG) PER UNIT SC SCH ×4 (07:48→21:00)
[2019-11-21] MEDS: MULTIVITAMINS/MINERALS THERAP 1 TAB PO SCH (07:48)
[2019-11-21] MEDS: CitaloPRAM (CeleXA) 20 MG TAB PO SCH (07:48)
[2019-11-21] MEDS: LEVEMIR (INSULIN DETEMIR) 1 UNITS/0.01ML SC SCH ×2 (07:49→20:58)
[2019-11-21] MEDS: NYSTATIN 100,000 UNITS/GM TOPICAL PWD 15 GM TOP SCH ×2 (07:53→20:56)
[2019-11-21 09:14] VITALS: BP 138/72
[2019-11-21] MEDS: MIRALAX *UNIT DOSE* 17GM PACKET PO PRN (09:23)
[2019-11-21] MEDS: SPIRONOLACTONE 25 MG TAB PO SCH (09:23)
[2019-11-21] MEDS: METOPROLOL SUCC (TopROL XL) 100MG *XL* TAB PO SCH (09:23)
[2019-11-21] MEDS: LISINOPRIL *2.5 MG* TAB PO SCH (09:23)
--- NOTE | 2019-11-21 09:34 | IPNPDOC ---
Text Note Date of Service The patient was seen on 11/21/19. NOTE Subjective: No any acute events overnight. Patient denies fever, chills, nausea, vomiting, diarrhea or dysuria Objective: VITAL SIGNS: please see below. GENERAL: Morbidly obese female HEENT: SHIKHA, EOMI CV: S1-S2 RESP: CTAB ABDOMEN: soft, obese, bowel sounds present EXTREMITIES: No swelling no cyanosis NEURO: AAOx3, CN III-XII grossly intact, no focal deficits PSYCH: Normal mood and affect. Assessment and plan Ms. Bryson is a 68 yo F with a PMHx of IDDM, Afib on Elliquis and digoxin, asthma/COPD, and recent PNA, that presented to the ED complaining of weakness and ankle pain after a fall at home and was found to have soft tissue swelling of the L ankle Mechanical fall Due to deconditioning secondary to morbid obesity PT/OT Community-acquired pneumonia Patient was recently diagnosed with right lower lobe pneumonia Continue levofloxacin Patient was febrile in the morning I will repeat blood culture. However procalcitonin negative Atrial fibrillation Blood pressure under control Continue oral targeted anticoagulation Diastolic CHF Not in acute exacerbation Continue home cardioprotective medication I's and O's Cardiac diet Hypertension Continue home cardioprotective medications with parameters anemia Most likely combined iron deficient and macrocytic anemia Will check stool for occult blood Continue iron replacement B12 level in the low level of normal range B12 by mouth Folate within normal limit Will check MMA Ankle sprain Pain management PT/OT Diabetes Diabetes diet Insulin sliding scale Detemir Hypothyroidism Continue levothyroxine GERD Continue Protonix Restless leg syndrome Could be secondary to iron deficiency anemia Continue ropinirole Morbid obesity Complicated care VS,Josephine, I+O VS, Josephine, I+O Laboratory Tests 11/20/19 12:04 11/21/19 06:21 Vital Signs Date Time Temp Pulse Resp B/P (MAP) Pulse Ox O2 Delivery O2 Flow Rate FiO2 11/21/19 09:23 138/72 11/21/19 09:23 106 11/21/19 09:14 16 96 Nasal Cannula 2.0 11/21/19 06:00 99.9 I&O- Last 24 Hours up to 6 AM 11/21/19 06:00 Intake Total 1190 ml Output Total 1800 ml Balance -610 ml ADRIÁN PARISH DO Nov 21, 2019 09:34
[2019-11-21] MEDS: ACETAMINOPHEN TAB 650MG DOSE (2X325MG) PO PRN ×2 (13:33→18:50)
[2019-11-21 14:00] VITALS: BP 105/53
[2019-11-21 17:21] VITALS: BP 109/56
[2019-11-21] MEDS: TORSEMIDE 20 MG TAB PO SCH (17:26)
[2019-11-21] MEDS: CYANOCOBALAMIN 500 MCG TAB PO SCH (20:56)
[2019-11-21] MEDS: ATORVASTATIN 20 MG TAB PO SCH (20:56)
[2019-11-21] MEDS: MONTELUKAST 10 MG TAB PO SCH (20:57)
[2019-11-21 22:00] VITALS: BP 103/53
[2019-11-22 02:00] VITALS: BP 109/56
[2019-11-22] MEDS: LevoFLOXacin IV 750 MG in IV 1 EA IV SCH (03:09)
[2019-11-22 06:00] VITALS: BP 104/69
[2019-11-22] MEDS: LEVOTHYROXINE 50MCG TABLET (0.05MG) PO SCH (06:04)
[2019-11-22 06:25] LABS: BASO % 0.3 % (0.0-1.0); EOS # 0.1 10^3/uL (0.0-0.5); EOS % 1.6 % (0.0-3.0); HEMATOCRIT 34.6 % (36.0-47.0); HEMOGLOBIN 10.3 g/dl (12.0-15.5); LYMPH # 1.1 10^3/uL (1.5-5.0); LYMPH % 14.4 % (24.0-44.0); MEAN CORPUSCULAR HEMOGLOBIN 28.8 pg (27.0-33.0); MEAN CORPUSCULAR HGB CONC 29.8 g/dl (32.0-36.5); MEAN CORPUSCULAR VOLUME 96.6 fl (80.0-96.0); MONO # 0.8 10^3/uL (0.0-0.8); MONO % 10.5 % (0.0-5.0); NEUTROPHILS # 5.6 10^3/uL (1.5-8.5); NEUTROPHILS % 72.6 % (36.0-66.0); PLATELET COUNT, AUTOMATED 231 10^3/uL (150-450); RED BLOOD COUNT 3.58 10^6/uL (4.00-5.40); WHITE BLOOD COUNT 7.7 10^3/uL (4.0-10.0)
[2019-11-22 06:51] LABS: BLOOD UREA NITROGEN 24 MG/DL (7-18); CALCIUM LEVEL 8.9 MG/DL (8.8-10.2); CARBON DIOXIDE LEVEL 44 MEQ/L (21-32); CHLORIDE LEVEL 95 MEQ/L (98-107); CREATININE FOR GFR 0.64 MG/DL (0.55-1.30); GLOMERULAR FILTRATION RATE > 60.0 (>45); GLUCOSE, FASTING 119 MG/DL (70-100); POTASSIUM SERUM 3.8 MEQ/L (3.5-5.1); SODIUM LEVEL 139 MEQ/L (136-145)
[2019-11-22] MEDS: FLUTICASONE HFA 110 MCG 12 GM INHALER (FLOVENT) INH SCH ×2 (07:20→19:18)
[2019-11-22] MEDS: HumaLOG INSULIN (NovoLOG) PER UNIT SC SCH ×4 (08:16→21:00)
[2019-11-22] MEDS: METOPROLOL SUCC (TopROL XL) 100MG *XL* TAB PO SCH (08:17)
[2019-11-22] MEDS: LEVEMIR (INSULIN DETEMIR) 1 UNITS/0.01ML SC SCH ×2 (08:17→21:03)
[2019-11-22] MEDS: MULTIVITAMINS/MINERALS THERAP 1 TAB PO SCH (08:18)
[2019-11-22] MEDS: LISINOPRIL *2.5 MG* TAB PO SCH (08:18)
[2019-11-22] MEDS: OMEPRAZOLE 20 MG CAP PO SCH (08:18)
[2019-11-22] MEDS: APIXABAN 5 MG TAB (ELIQUIS) PO SCH ×2 (08:18→21:04)
[2019-11-22] MEDS: rOPINIRole 1MG TAB PO SCH ×2 (08:18→21:04)
[2019-11-22] MEDS: FOLIC ACID 1 MG TAB PO SCH ×2 (08:18→21:04)
[2019-11-22] MEDS: FERROUS SULFATE 325MG TAB PO SCH ×3 (08:19→17:07)
[2019-11-22] MEDS: CitaloPRAM (CeleXA) 20 MG TAB PO SCH (08:19)
[2019-11-22] MEDS: DIGOXIN 0.125 MG TAB PO SCH (08:19)
[2019-11-22] MEDS: NYSTATIN 100,000 UNITS/GM TOPICAL PWD 15 GM TOP SCH ×2 (08:21→21:03)
[2019-11-22] MEDS: acetaZOLAMIDE 250 MG TAB PO SCH ×2 (08:26→21:03)
[2019-11-22] MEDS: SPIRONOLACTONE 25 MG TAB PO SCH (08:27)
--- NOTE | 2019-11-22 13:55 | IPNPDOC ---
Text Note Date of Service The patient was seen on 11/22/19. NOTE Subjective: Yesterday evening patient had low grade fever. Patient denies fever, chills, nausea, vomiting, diarrhea or dysuria Objective: VITAL SIGNS: please see below. GENERAL: Morbidly obese female HEENT: PERRLA, EOMI CV: S1-S2 RESP: CTAB ABDOMEN: soft, obese, bowel sounds present EXTREMITIES: No swelling no cyanosis NEURO: AAOx3, CN III-XII grossly intact, no focal deficits PSYCH: Normal mood and affect. Assessment and plan Ms. Bryson is a 68 yo F with a PMHx of IDDM, Afib on Elliquis and digoxin, asthma/COPD, and recent PNA, that presented to the ED complaining of weakness and ankle pain after a fall at home and was found to have soft tissue swelling o f the L ankle. Await placement. Mechanical fall Due to deconditioning secondary to morbid obesity PT/OT Community-acquired pneumonia Patient was recently diagnosed with right lower lobe pneumonia Continue levofloxacin Blood culture negative procalcitonin negative Low-grade fever and attributed to atelectasis. Ordered Incentive spirometry Atrial fibrillation Blood pressure under control Continue oral targeted anticoagulation Diastolic CHF Not in acute exacerbation Continue home cardioprotective medication I's and O's Cardiac diet Hypertension Continue home cardioprotective medications with parameters anemia Most likely combined iron deficient and macrocytic anemia Will check stool for occult blood Continue iron replacement B12 level in the low level of normal range B12 by mouth Folate within normal limit Will check MMA Ankle sprain Pain management PT/OT Diabetes Diabetes diet Insulin sliding scale Detemir Hypothyroidism Continue levothyroxine GERD Continue Protonix Restless leg syndrome Could be secondary to iron deficiency anemia Continue ropinirole Morbid obesity Complicated care VS,Fishbone, I+O VS, Fishbone, I+O Laboratory Tests 11/22/19 05:32 Vital Signs Date Time Temp Pulse Resp B/P (MAP) Pulse Ox O2 Delivery O2 Flow Rate FiO2 11/22/19 09:00 2.0 11/22/19 08:19 87 11/22/19 08:17 96/45 11/22/19 06:00 99.7 18 98 Nasal Cannula I&O- Last 24 Hours up to 6 AM 11/22/19 06:00 Intake Total 400 ml Output Total 3200 ml Balance -2800 ml ADRIÁN PARISH DO Nov 22, 2019 13:55
[2019-11-22 14:00] VITALS: BP 98/58
[2019-11-22 14:24] LABS: NT-PRO BNP 1994 PG/ML (<125)
[2019-11-22] MEDS: ACETAMINOPHEN TAB 650MG DOSE (2X325MG) PO PRN (16:14)
[2019-11-22] MEDS: TORSEMIDE 20 MG TAB PO SCH (16:59)
[2019-11-22] MEDS: LevoFLOXacin 750 MG TABLET PO SCH (17:07)
[2019-11-22] MEDS: MONTELUKAST 10 MG TAB PO SCH (21:04)
[2019-11-22] MEDS: ATORVASTATIN 20 MG TAB PO SCH (21:04)
[2019-11-22] MEDS: CYANOCOBALAMIN 500 MCG TAB PO SCH (21:04)
[2019-11-22 22:00] VITALS: BP 110/57
[2019-11-23 05:51] LABS: BASO % 0.3 % (0.0-1.0); EOS # 0.2 10^3/uL (0.0-0.5); EOS % 1.9 % (0.0-3.0); HEMOGLOBIN 10.2 g/dl (12.0-15.5); LYMPH # 1.1 10^3/uL (1.5-5.0); LYMPH % 13.6 % (24.0-44.0); MEAN CORPUSCULAR HEMOGLOBIN 27.8 pg (27.0-33.0); MEAN CORPUSCULAR HGB CONC 29.1 g/dl (32.0-36.5); MEAN CORPUSCULAR VOLUME 95.4 fl (80.0-96.0); MONO # 0.8 10^3/uL (0.0-0.8); MONO % 10.6 % (0.0-5.0); NEUTROPHILS # 5.7 10^3/uL (1.5-8.5); NEUTROPHILS % 73.2 % (36.0-66.0); PLATELET COUNT, AUTOMATED 220 10^3/uL (150-450); RED BLOOD COUNT 3.67 10^6/uL (4.00-5.40); WHITE BLOOD COUNT 7.8 10^3/uL (4.0-10.0)
[2019-11-23] MEDS: LEVOTHYROXINE 50MCG TABLET (0.05MG) PO SCH (05:59)
[2019-11-23 06:00] VITALS: BP 108/58
[2019-11-23 06:13] LABS: BLOOD UREA NITROGEN 24 MG/DL (7-18); CALCIUM LEVEL 8.5 MG/DL (8.8-10.2); CARBON DIOXIDE LEVEL 42 MEQ/L (21-32); CHLORIDE LEVEL 96 MEQ/L (98-107); CREATININE FOR GFR 0.61 MG/DL (0.55-1.30); GLOMERULAR FILTRATION RATE > 60.0 (>45); GLUCOSE, FASTING 113 MG/DL (70-100); MAGNESIUM LEVEL 2.1 MG/DL (1.8-2.4); POTASSIUM SERUM 4.1 MEQ/L (3.5-5.1); SODIUM LEVEL 139 MEQ/L (136-145)
[2019-11-23] MEDS: ACETAMINOPHEN TAB 650MG DOSE (2X325MG) PO PRN ×3 (06:18→20:20)
[2019-11-23] MEDS: FLUTICASONE HFA 110 MCG 12 GM INHALER (FLOVENT) INH SCH ×2 (07:17→20:34)
[2019-11-23] MEDS: HumaLOG INSULIN (NovoLOG) PER UNIT SC SCH ×4 (08:29→20:19)
[2019-11-23] MEDS: LEVEMIR (INSULIN DETEMIR) 1 UNITS/0.01ML SC SCH ×2 (08:30→20:18)
[2019-11-23] MEDS: APIXABAN 5 MG TAB (ELIQUIS) PO SCH ×2 (08:34→20:21)
[2019-11-23] MEDS: rOPINIRole 1MG TAB PO SCH ×2 (08:34→20:19)
[2019-11-23] MEDS: DIGOXIN 0.125 MG TAB PO SCH (08:35)
[2019-11-23] MEDS: FOLIC ACID 1 MG TAB PO SCH ×2 (08:35→20:20)
[2019-11-23] MEDS: FERROUS SULFATE 325MG TAB PO SCH ×3 (08:35→17:01)
[2019-11-23] MEDS: OMEPRAZOLE 20 MG CAP PO SCH (08:35)
[2019-11-23] MEDS: SPIRONOLACTONE 25 MG TAB PO SCH (08:35)
[2019-11-23] MEDS: MULTIVITAMINS/MINERALS THERAP 1 TAB PO SCH (08:35)
[2019-11-23] MEDS: CitaloPRAM (CeleXA) 20 MG TAB PO SCH (08:35)
[2019-11-23] MEDS: LISINOPRIL *2.5 MG* TAB PO SCH (08:36)
[2019-11-23] MEDS: METOPROLOL SUCC (TopROL XL) 100MG *XL* TAB PO SCH (08:36)
[2019-11-23] MEDS: acetaZOLAMIDE 250 MG TAB PO SCH ×2 (08:36→20:20)
[2019-11-23] MEDS: NYSTATIN 100,000 UNITS/GM TOPICAL PWD 15 GM TOP SCH ×2 (08:37→20:19)
--- NOTE | 2019-11-23 10:24 | IPNPDOC ---
Text Note Date of Service The patient was seen on 11/23/19. NOTE Subjective: Patient seen and examined at bedside. No acute overnight events reported. No new medical complaints this morning. Objective: VITAL SIGNS: please see below. GENERAL: NAD, lying comfortably in bed HEENT: PERRLA, EOMI, nasal cannula in place Heart: +S1S2, RRR Lungs: CTA B/L ABDOMEN: soft, obese, +BS PSYCH: Normal mood and affect. A/P: Ms. Bryson is a 68 yo F with a PMHx of IDDM, Afib/Elliquis/digoxin, asthma/COPD, and recent PNA, that presented to the ED complaining of weakness and ankle pain after a fall at home and was found to have soft tissue swelling of the L ankle, complicated with pneumonia. #Community-acquired pneumonia - Patient was recently diagnosed with right lower lobe pneumonia - Continue levofloxacin - Blood culture negative - procalcitonin negative - recent Low-grade fever and attributed to atelectasis #Mechanical fall - due to deconditioning - multifactorial etiology - PT/OT # chronic a-fib - rate controlled - eliquis, digoxin #chronic hypoxic respiratory failure - used 3L at baseline at home #CHF - combined systolic and diastolic failure - compensated #HTN - most home meds not administered due to low blood pressures #anemia Most likely combined iron deficient and macrocytic anemia Continue iron replacement B12 level in the low level of normal range B12 by mouth Folate within normal limit #Ankle sprain Pain management PT/OT #IDDM Diabetes diet Insulin sliding scale Detemir #Hypothyroidism Continue levothyroxine #GERD Continue Protonix #Restless leg syndrome Could be secondary to iron deficiency anemia Continue ropinirole #Morbid obesity Complicated care Dispo: Continue PT/OT, will likely need rehab VS,Fishbone, I+O VS, Fishbone, I+O Laboratory Tests 11/23/19 05:14 Vital Signs Date Time Temp Pulse Resp B/P (MAP) Pulse Ox O2 Delivery O2 Flow Rate FiO2 11/23/19 08:36 98/60 11/23/19 08:35 82 11/23/19 06:00 98.7 18 94 Nasal Cannula 2.0 I&O- Last 24 Hours up to 6 AM 11/23/19 06:00 Intake Total 1650 ml Output Total 1750 ml Balance -100 ml PRIYANKA MIN MD Nov 23, 2019 10:24
[2019-11-23 14:00] VITALS: BP 112/78
[2019-11-23] MEDS: TORSEMIDE 20 MG TAB PO SCH (16:24)
[2019-11-23] MEDS: MOM 30ML SUSPENSION UDC PO PRN (16:25)
[2019-11-23] MEDS: LevoFLOXacin 750 MG TABLET PO SCH (17:01)
[2019-11-23 20:00] VITALS: BP 104/45
[2019-11-23] MEDS: MONTELUKAST 10 MG TAB PO SCH (20:20)
[2019-11-23] MEDS: ATORVASTATIN 20 MG TAB PO SCH (20:20)
[2019-11-23] MEDS: CYANOCOBALAMIN 500 MCG TAB PO SCH (20:21)
[2019-11-23 22:00] VITALS: BP 127/69
[2019-11-24] MEDS: LEVOTHYROXINE 50MCG TABLET (0.05MG) PO SCH (05:57)
[2019-11-24] MEDS: ACETAMINOPHEN TAB 650MG DOSE (2X325MG) PO PRN ×2 (05:57→18:26)
[2019-11-24 06:00] VITALS: BP 121/66
[2019-11-24 06:49] LABS: BASO % 0.3 % (0.0-1.0); EOS # 0.1 10^3/uL (0.0-0.5); EOS % 1.6 % (0.0-3.0); HEMOGLOBIN 10.1 g/dl (12.0-15.5); LYMPH % 12.7 % (24.0-44.0); MEAN CORPUSCULAR HEMOGLOBIN 27.6 pg (27.0-33.0); MEAN CORPUSCULAR HGB CONC 29.7 g/dl (32.0-36.5); MEAN CORPUSCULAR VOLUME 92.9 fl (80.0-96.0); MONO # 0.7 10^3/uL (0.0-0.8); MONO % 9.3 % (0.0-5.0); NEUTROPHILS # 5.7 10^3/uL (1.5-8.5); NEUTROPHILS % 75.8 % (36.0-66.0); PLATELET COUNT, AUTOMATED 203 10^3/uL (150-450); RED BLOOD COUNT 3.66 10^6/uL (4.00-5.40); WHITE BLOOD COUNT 7.5 10^3/uL (4.0-10.0)
[2019-11-24] MEDS: FLUTICASONE HFA 110 MCG 12 GM INHALER (FLOVENT) INH SCH ×2 (07:22→19:24)
[2019-11-24 07:25] LABS: BLOOD UREA NITROGEN 24 MG/DL (7-18); CALCIUM LEVEL 8.4 MG/DL (8.8-10.2); CARBON DIOXIDE LEVEL 46 MEQ/L (21-32); CHLORIDE LEVEL 93 MEQ/L (98-107); CREATININE FOR GFR 0.61 MG/DL (0.55-1.30); GLOMERULAR FILTRATION RATE > 60.0 (>45); GLUCOSE, FASTING 110 MG/DL (70-100); MAGNESIUM LEVEL 1.9 MG/DL (1.8-2.4); POTASSIUM SERUM 3.5 MEQ/L (3.5-5.1); SODIUM LEVEL 142 MEQ/L (136-145)
[2019-11-24] MEDS: MULTIVITAMINS/MINERALS THERAP 1 TAB PO SCH (08:36)
[2019-11-24] MEDS: FERROUS SULFATE 325MG TAB PO SCH ×3 (08:36→18:19)
[2019-11-24] MEDS: CitaloPRAM (CeleXA) 20 MG TAB PO SCH (08:36)
[2019-11-24] MEDS: rOPINIRole 1MG TAB PO SCH ×2 (08:36→20:35)
[2019-11-24] MEDS: APIXABAN 5 MG TAB (ELIQUIS) PO SCH ×2 (08:36→20:36)
[2019-11-24] MEDS: FOLIC ACID 1 MG TAB PO SCH ×2 (08:36→20:35)
[2019-11-24] MEDS: METOPROLOL SUCC (TopROL XL) 100MG *XL* TAB PO SCH (08:37)
[2019-11-24] MEDS: DIGOXIN 0.125 MG TAB PO SCH (08:37)
[2019-11-24] MEDS: OMEPRAZOLE 20 MG CAP PO SCH (08:37)
[2019-11-24] MEDS: LISINOPRIL *2.5 MG* TAB PO SCH (08:37)
[2019-11-24] MEDS: HumaLOG INSULIN (NovoLOG) PER UNIT SC SCH ×4 (08:38→20:36)
[2019-11-24] MEDS: SPIRONOLACTONE 25 MG TAB PO SCH (08:38)
[2019-11-24] MEDS: acetaZOLAMIDE 250 MG TAB PO SCH ×2 (08:38→20:35)
[2019-11-24] MEDS: LEVEMIR (INSULIN DETEMIR) 1 UNITS/0.01ML SC SCH ×2 (08:39→20:37)
[2019-11-24] MEDS: NYSTATIN 100,000 UNITS/GM TOPICAL PWD 15 GM TOP SCH ×2 (08:40→20:37)
--- NOTE | 2019-11-24 10:37 | IPNPDOC ---
Text Note Date of Service The patient was seen on 11/24/19. NOTE Subjective: Patient seen and examined at bedside. No acute overnight events reported. No new medical complaints this morning. Objective: VITAL SIGNS: please see below. GENERAL: NAD, lying comfortably in bed HEENT: PERRLA, EOMI, nasal cannula in place Heart: +S1S2, RRR Lungs: CTA B/L ABDOMEN: soft, obese, +BS PSYCH: Normal mood and affect. A/P: Ms. Bryson is a 68 yo F with a PMHx of IDDM, Afib/Elliquis/digoxin, asthma/COPD, and recent PNA, that presented to the ED complaining of weakness and ankle pain after a fall at home and was found to have soft tissue swelling of the L ankle, complicated with pneumonia. #Community-acquired pneumonia - Patient was recently diagnosed with right lower lobe pneumonia - Continue levofloxacin - Blood culture negative - procalcitonin negative - recent Low-grade fever and attributed to atelectasis #Mechanical fall - due to deconditioning - multifactorial etiology - PT/OT # chronic a-fib - rate controlled - eliquis, digoxin #chronic hypoxic respiratory failure - used 3L at baseline at home #CHF - combined systolic and diastolic failure - compensated #HTN - most home meds not administered due to low blood pressures - To discuss with her manager retail store, Dr. Eli at [facility] #anemia - Most likely combined iron deficient and macrocytic anemia - Continue iron replacement - B12 level in the low level of normal range - B12 by mouth - Folate within normal limit #Ankle sprain - Pain management - PT/OT #IDDM - Diabetes diet - Insulin sliding scale - Detemir #Hypothyroidism - Continue levothyroxine #GERD Continue Protonix #Restless leg syndrome - Could be secondary to iron deficiency anemia - Continue ropinirole #Morbid obesity - Complicated care Dispo: Continue PT/OT, pending placement VS,Fishbone, I+O VS, Fishbone, I+O Laboratory Tests 11/24/19 05:56 Vital Signs Date Time Temp Pulse Resp B/P (MAP) Pulse Ox O2 Delivery O2 Flow Rate FiO2 11/24/19 09:00 2.0 11/24/19 08:37 90/50 11/24/19 08:37 80 11/24/19 06:00 98.4 20 95 Nasal Cannula I&O- Last 24 Hours up to 6 AM 11/24/19 06:00 Intake Total 1380 ml Output Total 3250 ml Balance -1870 ml PRIYANKA MIN MD Nov 24, 2019 10:37
[2019-11-24 13:18] VITALS: BP 120/60
[2019-11-24] MEDS: MIRALAX *UNIT DOSE* 17GM PACKET PO PRN (13:30)
[2019-11-24 14:00] VITALS: BP 108/60
[2019-11-24] MEDS: MOM 30ML SUSPENSION UDC PO PRN (18:19)
[2019-11-24] MEDS: LevoFLOXacin 750 MG TABLET PO SCH (18:19)
[2019-11-24] MEDS: TORSEMIDE 20 MG TAB PO SCH (18:21)
[2019-11-24] MEDS: ATORVASTATIN 20 MG TAB PO SCH (20:35)
[2019-11-24] MEDS: MONTELUKAST 10 MG TAB PO SCH (20:35)
[2019-11-24] MEDS: CYANOCOBALAMIN 500 MCG TAB PO SCH (20:36)
[2019-11-24 22:00] VITALS: BP 129/64
[2019-11-25 05:38] LABS: BASO % 0.1 % (0.0-1.0); EOS # 0.1 10^3/uL (0.0-0.5); EOS % 0.6 % (0.0-3.0); HEMATOCRIT 35.2 % (36.0-47.0); HEMOGLOBIN 10.8 g/dl (12.0-15.5); LYMPH # 0.5 10^3/uL (1.5-5.0); LYMPH % 4.8 % (24.0-44.0); MEAN CORPUSCULAR HEMOGLOBIN 28.1 pg (27.0-33.0); MEAN CORPUSCULAR HGB CONC 30.7 g/dl (32.0-36.5); MEAN CORPUSCULAR VOLUME 91.7 fl (80.0-96.0); MONO # 0.6 10^3/uL (0.0-0.8); MONO % 5.6 % (0.0-5.0); NEUTROPHILS # 8.9 10^3/uL (1.5-8.5); NEUTROPHILS % 88.4 % (36.0-66.0); PLATELET COUNT, AUTOMATED 220 10^3/uL (150-450); RED BLOOD COUNT 3.84 10^6/uL (4.00-5.40)
[2019-11-25 05:58] LABS: BLOOD UREA NITROGEN 22 MG/DL (7-18); CALCIUM LEVEL 8.7 MG/DL (8.8-10.2); CARBON DIOXIDE LEVEL 45 MEQ/L (21-32); CHLORIDE LEVEL 91 MEQ/L (98-107); CREATININE FOR GFR 0.65 MG/DL (0.55-1.30); GLOMERULAR FILTRATION RATE > 60.0 (>45); GLUCOSE, FASTING 201 MG/DL (70-100); POTASSIUM SERUM 3.5 MEQ/L (3.5-5.1); SODIUM LEVEL 139 MEQ/L (136-145)
[2019-11-25 06:00] VITALS: BP 108/62
[2019-11-25] MEDS: LEVOTHYROXINE 50MCG TABLET (0.05MG) PO SCH (06:06)
[2019-11-25] MEDS: FLUTICASONE HFA 110 MCG 12 GM INHALER (FLOVENT) INH SCH ×2 (07:26→19:50)
[2019-11-25] MEDS: FERROUS SULFATE 325MG TAB PO SCH ×3 (08:00→18:00)
[2019-11-25] MEDS: NYSTATIN 100,000 UNITS/GM TOPICAL PWD 15 GM TOP SCH ×2 (09:00→20:54)
[2019-11-25] MEDS: HumaLOG INSULIN (NovoLOG) PER UNIT SC SCH ×4 (09:45→20:45)
[2019-11-25] MEDS: LEVEMIR (INSULIN DETEMIR) 1 UNITS/0.01ML SC SCH ×2 (09:45→20:54)
[2019-11-25] MEDS: ACETAMINOPHEN TAB 650MG DOSE (2X325MG) PO PRN ×2 (09:46→20:56)
[2019-11-25] MEDS ORDERED: LISI2.5T2 PO (09:52)
[2019-11-25] MEDS: METOPROLOL SUCC (TopROL XL) 100MG *XL* TAB PO SCH (09:52)
[2019-11-25] MEDS ORDERED: LEVA750T7 PO (09:52)
[2019-11-25] MEDS: acetaZOLAMIDE 250 MG TAB PO SCH ×2 (09:52→20:53)
[2019-11-25] MEDS: MULTIVITAMINS/MINERALS THERAP 1 TAB PO SCH (09:52)
[2019-11-25] MEDS: OMEPRAZOLE 20 MG CAP PO SCH (09:52)
[2019-11-25] MEDS: DIGOXIN 0.125 MG TAB PO SCH (09:53)
[2019-11-25] MEDS: APIXABAN 5 MG TAB (ELIQUIS) PO SCH ×2 (09:53→20:55)
[2019-11-25] MEDS: LISINOPRIL *2.5 MG* TAB PO SCH (09:53)
[2019-11-25] MEDS: SPIRONOLACTONE 25 MG TAB PO SCH (09:53)
[2019-11-25] MEDS: CitaloPRAM (CeleXA) 20 MG TAB PO SCH (09:53)
[2019-11-25] MEDS: rOPINIRole 1MG TAB PO SCH ×2 (09:53→20:54)
[2019-11-25] MEDS: FOLIC ACID 1 MG TAB PO SCH ×2 (09:53→20:53)
[2019-11-25 14:00] VITALS: BP 110/70
[2019-11-25] MEDS: LevoFLOXacin 750 MG TABLET PO SCH (18:29)
[2019-11-25] MEDS: TORSEMIDE 20 MG TAB PO SCH (18:29)
[2019-11-25] MEDS: MONTELUKAST 10 MG TAB PO SCH (20:53)
[2019-11-25] MEDS: ATORVASTATIN 20 MG TAB PO SCH (20:53)
[2019-11-25] MEDS: CYANOCOBALAMIN 500 MCG TAB PO SCH (20:53)
[2019-11-25 22:00] VITALS: BP 100/45
[2019-11-26] MEDS: LEVOTHYROXINE 50MCG TABLET (0.05MG) PO SCH (05:31)
[2019-11-26 06:00] VITALS: BP 99/55
--- NOTE | 2019-11-26 06:20 | IPNPDOC ---
Text Note Date of Service The patient was seen on 11/25/19. NOTE Subjective: Patient seen and examined at bedside. No acute overnight events reported. No new medical complaints this morning. Objective: VITAL SIGNS: please see below. GENERAL: NAD, lying comfortably in bed HEENT: PERRLA, EOMI, nasal cannula in place Heart: +S1S2, RRR Lungs: CTA B/L ABDOMEN: soft, obese, +BS PSYCH: Normal mood and affect. A/P: Ms. Bryson is a 68 yo F with a PMHx of IDDM, Afib/Elliquis/digoxin, asthma/COPD, and recent PNA, that presented to the ED complaining of weakness and ankle pain after a fall at home and was found to have soft tissue swelling of the L ankle, complicated with pneumonia. #Community-acquired pneumonia - Patient was recently diagnosed with right lower lobe pneumonia - Continue levofloxacin - Blood culture negative - procalcitonin negative - recent Low-grade fever attributed to atelectasis #Mechanical fall - due to deconditioning - multifactorial etiology - PT/OT # chronic a-fib - rate controlled - eliquis, digoxin #chronic hypoxic respiratory failure - used 3L at baseline at home #CHF - combined systolic and diastolic failure - compensated #HTN - most home meds not administered due to low blood pressures - To discuss with her eviscerator, Dr. Eli at [facility] #anemia - Most likely combined iron deficient and macrocytic anemia - Continue iron replacement - B12 level in the low level of normal range - B12 by mouth - Folate within normal limit #Ankle sprain - Pain management - PT/OT #IDDM - Diabetes diet - Insulin sliding scale - Detemir #Hypothyroidism - Continue levothyroxine #GERD Continue Protonix #Restless leg syndrome - Could be secondary to iron deficiency anemia - Continue ropinirole #Morbid obesity - Complicated care Dispo: Continue PT/OT, placement at [facility] for short term rehab - pending VS,Fishbone, I+O VS, Fishbone, I+O Vital Signs Date Time Temp Pulse Resp B/P (MAP) Pulse Ox O2 Delivery O2 Flow Rate FiO2 11/26/19 06:00 98.4 84 20 99/55 (70) 95 Nasal Cannula 3.0 I&O- Last 24 Hours up to 6 AM 11/26/19 06:00 Intake Total 1570 ml Output Total 1975 ml Balance -405 ml PRIYANKA MIN MD Nov 26, 2019 06:20
[2019-11-26 06:37] LABS: BASO % 0.2 % (0.0-1.0); EOS # 0.1 10^3/uL (0.0-0.5); EOS % 0.8 % (0.0-3.0); HEMATOCRIT 34.4 % (36.0-47.0); HEMOGLOBIN 10.2 g/dl (12.0-15.5); LYMPH # 1.1 10^3/uL (1.5-5.0); LYMPH % 12.1 % (24.0-44.0); MEAN CORPUSCULAR HEMOGLOBIN 27.9 pg (27.0-33.0); MEAN CORPUSCULAR HGB CONC 29.7 g/dl (32.0-36.5); MEAN CORPUSCULAR VOLUME 94.2 fl (80.0-96.0); MONO # 0.7 10^3/uL (0.0-0.8); NEUTROPHILS # 6.8 10^3/uL (1.5-8.5); NEUTROPHILS % 78.1 % (36.0-66.0); PLATELET COUNT, AUTOMATED 205 10^3/uL (150-450); RED BLOOD COUNT 3.65 10^6/uL (4.00-5.40); WHITE BLOOD COUNT 8.7 10^3/uL (4.0-10.0)
[2019-11-26 06:55] LABS: BLOOD UREA NITROGEN 26 MG/DL (7-18); CALCIUM LEVEL 8.8 MG/DL (8.8-10.2); CARBON DIOXIDE LEVEL 43 MEQ/L (21-32); CHLORIDE LEVEL 94 MEQ/L (98-107); CREATININE FOR GFR 0.65 MG/DL (0.55-1.30); GLOMERULAR FILTRATION RATE > 60.0 (>45); GLUCOSE, FASTING 122 MG/DL (70-100); MAGNESIUM LEVEL 2.2 MG/DL (1.8-2.4); POTASSIUM SERUM 3.5 MEQ/L (3.5-5.1); SODIUM LEVEL 138 MEQ/L (136-145)
[2019-11-26] MEDS: FLUTICASONE HFA 110 MCG 12 GM INHALER (FLOVENT) INH SCH ×2 (07:18→19:48)
[2019-11-26] MEDS: FERROUS SULFATE 325MG TAB PO SCH ×3 (08:00→17:18)
[2019-11-26] MEDS: LISINOPRIL *2.5 MG* TAB PO SCH (08:21)
[2019-11-26] MEDS: METOPROLOL SUCC (TopROL XL) 100MG *XL* TAB PO SCH (08:21)
[2019-11-26] MEDS: SPIRONOLACTONE 25 MG TAB PO SCH (08:22)
[2019-11-26] MEDS: LEVEMIR (INSULIN DETEMIR) 1 UNITS/0.01ML SC SCH ×2 (08:32→21:31)
[2019-11-26] MEDS: MIRALAX *UNIT DOSE* 17GM PACKET PO PRN (08:32)
[2019-11-26] MEDS: HumaLOG INSULIN (NovoLOG) PER UNIT SC SCH ×4 (08:33→21:00)
[2019-11-26] MEDS: OMEPRAZOLE 20 MG CAP PO SCH (08:34)
[2019-11-26] MEDS: MULTIVITAMINS/MINERALS THERAP 1 TAB PO SCH (08:34)
[2019-11-26] MEDS: rOPINIRole 1MG TAB PO SCH ×2 (08:34→21:31)
[2019-11-26] MEDS: DIGOXIN 0.125 MG TAB PO SCH (08:34)
[2019-11-26] MEDS: APIXABAN 5 MG TAB (ELIQUIS) PO SCH ×2 (08:34→21:30)
[2019-11-26] MEDS: acetaZOLAMIDE 250 MG TAB PO SCH ×2 (08:34→21:00)
[2019-11-26] MEDS: CitaloPRAM (CeleXA) 20 MG TAB PO SCH (08:34)
[2019-11-26] MEDS: NYSTATIN 100,000 UNITS/GM TOPICAL PWD 15 GM TOP SCH ×2 (08:35→21:32)
[2019-11-26] MEDS: ACETAMINOPHEN TAB 650MG DOSE (2X325MG) PO PRN ×2 (08:35→21:34)
[2019-11-26] MEDS: FOLIC ACID 1 MG TAB PO SCH ×2 (08:37→21:31)
[2019-11-26 11:08] LABS: Methylmalonic Acid 839 nmol/L (0-378)
[2019-11-26 14:00] VITALS: BP 103/54
[2019-11-26] MEDS: LevoFLOXacin 750 MG TABLET PO SCH (17:17)
[2019-11-26] MEDS: TORSEMIDE 20 MG TAB PO SCH (17:17)
[2019-11-26] MEDS: ATORVASTATIN 20 MG TAB PO SCH (21:30)
[2019-11-26] MEDS: CYANOCOBALAMIN 500 MCG TAB PO SCH (21:30)
[2019-11-26] MEDS: MONTELUKAST 10 MG TAB PO SCH (21:31)
[2019-11-26 22:00] VITALS: BP 101/64
[2019-11-27] MEDS: LEVOTHYROXINE 50MCG TABLET (0.05MG) PO SCH (05:46)
[2019-11-27] MEDS: ACETAMINOPHEN TAB 650MG DOSE (2X325MG) PO PRN ×2 (05:49→21:14)
[2019-11-27 06:00] VITALS: BP 113/54
[2019-11-27] MEDS: FLUTICASONE HFA 110 MCG 12 GM INHALER (FLOVENT) INH SCH ×2 (07:46→19:37)
[2019-11-27] MEDS: FERROUS SULFATE 325MG TAB PO SCH ×3 (08:00→17:19)
[2019-11-27] MEDS: MOM 30ML SUSPENSION UDC PO PRN (08:09)
[2019-11-27] MEDS: CitaloPRAM (CeleXA) 20 MG TAB PO SCH (08:10)
[2019-11-27] MEDS: SPIRONOLACTONE 25 MG TAB PO SCH (08:10)
[2019-11-27] MEDS: METOPROLOL SUCC (TopROL XL) 100MG *XL* TAB PO SCH (08:10)
[2019-11-27] MEDS: LISINOPRIL *2.5 MG* TAB PO SCH (08:10)
[2019-11-27] MEDS: APIXABAN 5 MG TAB (ELIQUIS) PO SCH ×2 (08:10→21:12)
[2019-11-27] MEDS: FOLIC ACID 1 MG TAB PO SCH ×2 (08:10→21:12)
[2019-11-27] MEDS: rOPINIRole 1MG TAB PO SCH ×2 (08:10→21:14)
[2019-11-27] MEDS: MULTIVITAMINS/MINERALS THERAP 1 TAB PO SCH (08:10)
[2019-11-27] MEDS: LEVEMIR (INSULIN DETEMIR) 1 UNITS/0.01ML SC SCH ×2 (08:11→21:15)
[2019-11-27] MEDS: acetaZOLAMIDE 250 MG TAB PO SCH ×2 (08:11→21:12)
[2019-11-27] MEDS: OMEPRAZOLE 20 MG CAP PO SCH (08:11)
[2019-11-27] MEDS: DIGOXIN 0.125 MG TAB PO SCH (08:11)
[2019-11-27] MEDS: NYSTATIN 100,000 UNITS/GM TOPICAL PWD 15 GM TOP SCH ×2 (08:12→21:15)
[2019-11-27] MEDS: HumaLOG INSULIN (NovoLOG) PER UNIT SC SCH ×4 (08:12→21:00)
--- NOTE | 2019-11-27 10:21 | IPNPDOC ---
Text Note Date of Service The patient was seen on 11/26/19. NOTE Subjective: Patient seen and examined at bedside. No acute overnight events reported. No new medical complaints this morning. Objective: VITAL SIGNS: please see below. GENERAL: NAD, lying comfortably in bed HEENT: PERRLA, EOMI, nasal cannula in place Heart: +S1S2, RRR Lungs: CTA B/L ABDOMEN: soft, obese, +BS PSYCH: Normal mood and affect. A/P: Ms. Bryson is a 68 yo F with a PMHx of IDDM, Afib/Elliquis/digoxin, asthma/COPD, and recent PNA, that presented to the ED complaining of weakness and ankle pain after a fall at home and was found to have soft tissue swelling of the L ankle, complicated with pneumonia. #Community-acquired pneumonia - Patient was recently diagnosed with right lower lobe pneumonia - Continue levofloxacin - Blood culture negative - procalcitonin negative - recent Low-grade fever attributed to atelectasis #Mechanical fall - due to deconditioning - multifactorial etiology - PT/OT # chronic a-fib - rate controlled - eliquis, digoxin #chronic hypoxic respiratory failure - used 3L at baseline at home #CHF - combined systolic and diastolic failure - compensated #HTN - most home meds not administered due to low blood pressures - To discuss with her [employer] account executive, Dr. Eli at [facility] #anemia - Most likely combined iron deficient and macrocytic anemia - Continue iron replacement - B12 level in the low level of normal range - B12 by mouth - Folate within normal limit #Ankle sprain - Pain management - PT/OT #IDDM - Diabetes diet - Insulin sliding scale - Detemir #Hypothyroidism - Continue levothyroxine #GERD Continue Protonix #Restless leg syndrome - Could be secondary to iron deficiency anemia - Continue ropinirole #Morbid obesity - Complicated care Dispo: Continue PT/OT, placement at [facility] for short term rehab - pending Discussed with her b2b account executive Dr. Lucas who recommended hold parameters for her anti-hypertensive medications be adjusted to SBP 90. VS,Fishbone, I+O VS, Fishbone, I+O Vital Signs Date Time Temp Pulse Resp B/P (MAP) Pulse Ox O2 Delivery O2 Flow Rate FiO2 11/27/19 08:11 82 11/27/19 08:10 94/50 11/27/19 06:00 98.0 15 96 Nasal Cannula 2.0 I&O- Last 24 Hours up to 6 AM 11/27/19 06:00 Intake Total 1220 ml Output Total 2175 ml Balance -955 ml PRIYANKA MIN MD Nov 27, 2019 10:21
--- NOTE | 2019-11-27 10:22 | IPNPDOC ---
Text Note Date of Service The patient was seen on 11/27/19. NOTE Subjective: Patient seen and examined at bedside. No acute overnight events reported. No new medical complaints this morning. Objective: VITAL SIGNS: please see below. GENERAL: NAD, lying comfortably in bed HEENT: PERRLA, EOMI, nasal cannula in place Heart: +S1S2, RRR Lungs: CTA B/L ABDOMEN: soft, obese, +BS PSYCH: Normal mood and affect. A/P: Ms. Bryson is a 68 yo F with a PMHx of IDDM, Afib/Elliquis/digoxin, asthma/COPD, and recent PNA, that presented to the ED complaining of weakness and ankle pain after a fall at home and was found to have soft tissue swelling of the L ankle, complicated with pneumonia. #Community-acquired pneumonia - Patient was recently diagnosed with right lower lobe pneumonia - Continue levofloxacin - Blood culture negative - procalcitonin negative - recent Low-grade fever attributed to atelectasis #Mechanical fall - due to deconditioning - multifactorial etiology - PT/OT # chronic a-fib - rate controlled - eliquis, digoxin #chronic hypoxic respiratory failure - used 3L at baseline at home #CHF - combined systolic and diastolic failure - compensated #HTN - most home meds not administered due to low blood pressures - d/w with her tobacco drier operator dr lucas in [place] - hold parameters adjusted for sbp <90 #anemia - Most likely combined iron deficient and macrocytic anemia - Continue iron replacement - B12 level in the low level of normal range - B12 by mouth - Folate within normal limit #Ankle sprain - Pain management - PT/OT #IDDM - Diabetes diet - Insulin sliding scale - Detemir #Hypothyroidism - Continue levothyroxine #GERD Continue Protonix #Restless leg syndrome - Could be secondary to iron deficiency anemia - Continue ropinirole #Morbid obesity - Complicated care Dispo: Continue PT/OT, placement at [facility] for short term rehab - pending Discussed with her tobacco drier operator Dr. Lucas who recommended hold parameters for her anti-hypertensive medications be adjusted to SBP 90. VS,Fishbone, I+O VS, Fishbone, I+O Vital Signs Date Time Temp Pulse Resp B/P (MAP) Pulse Ox O2 Delivery O2 Flow Rate FiO2 11/27/19 08:11 82 11/27/19 08:10 94/50 11/27/19 06:00 98.0 15 96 Nasal Cannula 2.0 I&O- Last 24 Hours up to 6 AM 11/27/19 06:00 Intake Total 1220 ml Output Total 2175 ml Balance -955 ml PRIYANKA MIN MD Nov 27, 2019 10:21
[2019-11-27 14:00] VITALS: BP 99/51
[2019-11-27] MEDS: TORSEMIDE 20 MG TAB PO SCH (17:19)
[2019-11-27] MEDS: LevoFLOXacin 750 MG TABLET PO SCH (17:19)
[2019-11-27] MEDS: ATORVASTATIN 20 MG TAB PO SCH (21:13)
[2019-11-27] MEDS: MONTELUKAST 10 MG TAB PO SCH (21:13)
[2019-11-27] MEDS: CYANOCOBALAMIN 500 MCG TAB PO SCH (21:14)
[2019-11-27 22:00] VITALS: BP 96/55
[2019-11-28] MEDS: LEVOTHYROXINE 50MCG TABLET (0.05MG) PO SCH (05:50)
[2019-11-28 06:00] VITALS: BP 102/55
[2019-11-28] MEDS: ACETAMINOPHEN TAB 650MG DOSE (2X325MG) PO PRN ×2 (06:53→21:42)
[2019-11-28] MEDS: FLUTICASONE HFA 110 MCG 12 GM INHALER (FLOVENT) INH SCH ×2 (07:10→19:55)
[2019-11-28] MEDS: FERROUS SULFATE 325MG TAB PO SCH ×3 (08:00→17:10)
[2019-11-28] MEDS: LEVEMIR (INSULIN DETEMIR) 1 UNITS/0.01ML SC SCH ×2 (08:29→21:36)
[2019-11-28] MEDS: acetaZOLAMIDE 250 MG TAB PO SCH ×2 (08:30→21:36)
[2019-11-28] MEDS: FOLIC ACID 1 MG TAB PO SCH ×2 (08:30→21:36)
[2019-11-28] MEDS: MULTIVITAMINS/MINERALS THERAP 1 TAB PO SCH (08:30)
[2019-11-28] MEDS: OMEPRAZOLE 20 MG CAP PO SCH (08:30)
[2019-11-28] MEDS: NYSTATIN 100,000 UNITS/GM TOPICAL PWD 15 GM TOP SCH ×2 (08:30→21:00)
[2019-11-28] MEDS: APIXABAN 5 MG TAB (ELIQUIS) PO SCH ×2 (08:30→21:36)
[2019-11-28] MEDS: rOPINIRole 1MG TAB PO SCH ×2 (08:30→21:36)
[2019-11-28] MEDS: SPIRONOLACTONE 25 MG TAB PO SCH (08:30)
[2019-11-28] MEDS: CitaloPRAM (CeleXA) 20 MG TAB PO SCH (08:30)
[2019-11-28] MEDS: HumaLOG INSULIN (NovoLOG) PER UNIT SC SCH ×4 (08:31→21:00)
[2019-11-28] MEDS: LISINOPRIL *2.5 MG* TAB PO SCH (08:31)
[2019-11-28] MEDS: METOPROLOL SUCC (TopROL XL) 100MG *XL* TAB PO SCH (08:32)
[2019-11-28] MEDS: DIGOXIN 0.125 MG TAB PO SCH (09:00)
[2019-11-28 14:00] VITALS: BP 93/48
[2019-11-28] MEDS: LevoFLOXacin 750 MG TABLET PO SCH (17:09)
[2019-11-28] MEDS: TORSEMIDE 20 MG TAB PO SCH (17:09)
[2019-11-28] MEDS: CYANOCOBALAMIN 500 MCG TAB PO SCH (21:36)
[2019-11-28] MEDS: ATORVASTATIN 20 MG TAB PO SCH (21:36)
[2019-11-28] MEDS: MONTELUKAST 10 MG TAB PO SCH (21:36)
[2019-11-28 22:00] VITALS: BP 96/48
[2019-11-29] MEDS: LEVOTHYROXINE 50MCG TABLET (0.05MG) PO SCH (05:32)
[2019-11-29 06:00] VITALS: BP 97/48
[2019-11-29] MEDS: FLUTICASONE HFA 110 MCG 12 GM INHALER (FLOVENT) INH SCH (07:31)
[2019-11-29] MEDS: FOLIC ACID 1 MG TAB PO SCH (07:53)
[2019-11-29] MEDS: LEVEMIR (INSULIN DETEMIR) 1 UNITS/0.01ML SC SCH (07:53)
[2019-11-29] MEDS: HumaLOG INSULIN (NovoLOG) PER UNIT SC SCH (07:53)
[2019-11-29] MEDS: MULTIVITAMINS/MINERALS THERAP 1 TAB PO SCH (07:54)
[2019-11-29] MEDS: OMEPRAZOLE 20 MG CAP PO SCH (07:54)
[2019-11-29] MEDS: ACETAMINOPHEN TAB 650MG DOSE (2X325MG) PO PRN (07:54)
[2019-11-29] MEDS: acetaZOLAMIDE 250 MG TAB PO SCH (07:54)
[2019-11-29] MEDS: APIXABAN 5 MG TAB (ELIQUIS) PO SCH (07:54)
[2019-11-29] MEDS: rOPINIRole 1MG TAB PO SCH (07:54)
[2019-11-29] MEDS: CitaloPRAM (CeleXA) 20 MG TAB PO SCH (07:55)
[2019-11-29] MEDS: DIGOXIN 0.125 MG TAB PO SCH (07:55)
[2019-11-29] MEDS: LISINOPRIL *2.5 MG* TAB PO SCH (07:55)
[2019-11-29 07:56] VITALS: BP 90/46
[2019-11-29] MEDS: METOPROLOL SUCC (TopROL XL) 100MG *XL* TAB PO SCH (07:56)
[2019-11-29] MEDS: NYSTATIN 100,000 UNITS/GM TOPICAL PWD 15 GM TOP SCH (07:57)
[2019-11-29] MEDS: FERROUS SULFATE 325MG TAB PO SCH (08:00)
[2019-11-29] MEDS: SPIRONOLACTONE 25 MG TAB PO SCH (09:00)
--- NOTE | 2019-11-29 09:27 | IPNPDOC ---
Text Note Date of Service The patient was seen on 11/28/19. NOTE Subjective: Patient seen and examined at bedside. No acute overnight events reported. No new medical complaints this morning. Objective: VITAL SIGNS: please see below. GENERAL: NAD, lying comfortably in bed HEENT: PERRLA, EOMI, nasal cannula in place Heart: +S1S2, RRR Lungs: CTA B/L ABDOMEN: soft, obese, +BS PSYCH: Normal mood and affect. A/P: Ms. Bryson is a 68 yo F with a PMHx of IDDM, Afib/Elliquis/digoxin, asthma/COPD, and recent PNA, that presented to the ED complaining of weakness and ankle pain after a fall at home and was found to have soft tissue swelling of the L ankle, complicated with pneumonia. #Community-acquired pneumonia - Patient was recently diagnosed with right lower lobe pneumonia - Continue levofloxacin - Blood culture negative - procalcitonin negative - recent Low-grade fever attributed to atelectasis #Mechanical fall - due to deconditioning - multifactorial etiology - PT/OT # chronic a-fib - rate controlled - eliquis, digoxin #chronic hypoxic respiratory failure - used 3L at baseline at home #CHF - combined systolic and diastolic failure - compensated #HTN - most home meds not administered due to low blood pressures - d/w with her [employer] radio operator dr lucas in [place] - hold parameters adjusted for sbp <90 #anemia - Most likely combined iron deficient and macrocytic anemia - Continue iron replacement - B12 level in the low level of normal range - B12 by mouth - Folate within normal limit #Ankle sprain - Pain management - PT/OT #IDDM - Diabetes diet - Insulin sliding scale - Detemir #Hypothyroidism - Continue levothyroxine #GERD Continue Protonix #Restless leg syndrome - Could be secondary to iron deficiency anemia - Continue ropinirole #Morbid obesity - Complicated care Dispo: Continue PT/OT, placement at [facility] for short term rehab - pending Discussed with her [employer] radio operator Dr. Lucas who recommended hold parameters for her anti-hypertensive medications be adjusted to SBP 90. VS,Fishbone, I+O VS, Fishbone, I+O Vital Signs Date Time Temp Pulse Resp B/P (MAP) Pulse Ox O2 Delivery O2 Flow Rate FiO2 11/29/19 07:56 77 90/46 11/29/19 06:00 98.7 12 97 Nasal Cannula 2.0 I&O- Last 24 Hours up to 6 AM 11/29/19 06:00 Intake Total 3020 ml Output Total 1950 ml Balance 1070 ml PRIYANKA MIN MD Nov 29, 2019 09:27
--- NOTE | 2019-11-29 09:29 | IPNPDOC ---
Text Note Date of Service The patient was seen on 11/29/19. NOTE Discharge Addendum: Subjective: Patient seen and examined at bedside. No acute overnight events reported. No new medical complaints this morning. Objective: VITAL SIGNS: please see below. GENERAL: NAD, lying comfortably in bed HEENT: PERRLA, EOMI, nasal cannula in place Heart: +S1S2, RRR Lungs: CTA B/L ABDOMEN: soft, obese, +BS PSYCH: Normal mood and affect. A/P: Ms. Bryson is a 68 yo F with a PMHx of IDDM, Afib/Elliquis/digoxin, asthma/COPD, and recent PNA, that presented to the ED complaining of weakness and ankle pain after a fall at home and was found to have soft tissue swelling of the L ankle, complicated with pneumonia. #Community-acquired pneumonia - Patient was recently diagnosed with right lower lobe pneumonia - completed adequate course of Levaquin - Blood culture negative - procalcitonin negative #Mechanical fall - due to deconditioning - multifactorial etiology - PT/OT # chronic a-fib - rate controlled - eliquis, digoxin #chronic hypoxic respiratory failure - used 3L at baseline at home #CHF - combined systolic and diastolic failure - compensated #HTN - most home meds not administered due to low blood pressures - d/w with her learning design specialist dr norman in [place] - hold parameters adjusted for sbp <90 #anemia - Most likely combined iron deficient and macrocytic anemia - Continue iron replacement - B12 level in the low level of normal range - B12 by mouth - Folate within normal limit #Ankle sprain - Pain management - PT/OT #IDDM - Diabetes diet - Insulin sliding scale - Detemir #Hypothyroidism - Continue levothyroxine #GERD Continue Protonix #Restless leg syndrome - Could be secondary to iron deficiency anemia - Continue ropinirole #Morbid obesity - Complicated care Dispo: Plan for discharge to [facility] today. Levaquin discontinued on discharge medications - as completed adequate course inpatient. No changes to discharge instructions. Please refer to discharge summary for further details. VS,Fishbone, I+O VS, Fishbone, I+O Vital Signs Date Time Temp Pulse Resp B/P (MAP) Pulse Ox O2 Delivery O2 Flow Rate FiO2 11/29/19 07:56 77 90/46 11/29/19 06:00 98.7 12 97 Nasal Cannula 2.0 I&O- Last 24 Hours up to 6 AM 11/29/19 06:00 Intake Total 3020 ml Output Total 1950 ml Balance 1070 ml PRIYANKA MIN MD Nov 29, 2019 09:29
--- NOTE | 2019-11-29 13:54 | DS.PDOC ---
Discharge Summary General Date of Admission Nov 18, 2019 at 19:21 Date of Discharge 11/29/19 Discharge Summary PROCEDURES PERFORMED DURING STAY: [None]. 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 HISTORY OF PRESENT ILLNESS: Pt is a 68 year old female presents to the ED with cc of generalized weakness and mechanical fall. Pt states that she was climbing a platform when her legs gave out and she fell and denied any LOC. She stated that she twisted her L ankle really badly s/p fall and has been in a boot since. She was also just discharged from [facility] for pneumonia, and given a 8 day course of levaquin 750mg PO daily for her RLL PNA, which she has not yet completed. Pt denied any CP, fever, chills, n/v. stated she had some sob and has had a bout of diarrhea yesterday that has since resolved. She was treated with LEvaquin for a RLL pneumonia, and responded well to treatment. She was found to be borderline hypotensive, and this was discussed with her door clamper Dr. Lucas in [place]. He recommended low holding parameters for her medications. Hospital stay was otherwise unremarkable. 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 ALLERGIES: Please see below. PHYSICAL EXAMINATION ON DISCHARGE: VITAL SIGNS: please see below. GENERAL: NAD, lying comfortably in bed HEENT: PERRLA, EOMI, nasal cannula in place Heart: +S1S2, RRR Lungs: CTA B/L ABDOMEN: soft, obese, +BS PSYCH: Normal mood and affect. LABORATORY DATA: Please see below. ACTIVITY: [As tolerated]. DISPOSITION: [facility] - subacute rehab DISCHARGE INSTRUCTIONS: 1. Follow up PCP in 3-5 days 2. Further direction as per receiving facility 3. Follow up cardiology as scheduled DISCHARGE CONDITION: [Stable]. TIME SPENT ON DISCHARGE: 40 minutes. Vital Signs/I&Os Vital Signs Date Time Temp Pulse Resp B/P (MAP) Pulse Ox O2 Delivery O2 Flow Rate FiO2 11/29/19 08:00 2.0 11/29/19 07:56 77 90/46 11/29/19 06:00 98.7 12 97 Nasal Cannula I&O- Last 24 Hours up to 6 AM 11/29/19 06:00 Intake Total 3020 ml Output Total 1950 ml Balance 1070 ml Laboratory Data Labs 24H Laboratory Tests 2 11/28/19 16:25: Bedside Glucose (Misc Panel) 177H 11/28/19 20:57: Bedside Glucose (Misc Panel) 184H 11/29/19 04:54: Bedside Glucose (Misc Panel) 128H FSBS Laboratory Tests Test 11/28/19 16:25 11/28/19 20:57 11/29/19 04:54 Range/Units Bedside Glucose (Misc Panel) 177 184 128 80-115 MG/DL Microbiology Microbiology 11/25/19 Stool Occult Blood (QUINN) - Final, Complete 11/25/19 Stool Occult Blood (QUINN) - Final, Complete 11/20/19 Blood Culture - Final, Complete NO GROWTH AFTER 5 DAYS Discharge Medications Scheduled Acetazolamide (Acetazolamide) 250 Mg Tablet, 500 MG PO BID, (Reported) Apixaban (Eliquis) 5 Mg Tablet, 5 MG PO BID, (Reported) Atorvastatin Calcium (Atorvastatin Calcium) 80 Mg Tablet, 80 MG PO QHS, (Reported) Cetirizine HCl (Cetirizine HCl) 10 Mg Tablet, 10 MG PO DAILY, (Reported) Citalopram Hydrobromide (Citalopram HBr) 20 Mg Tablet, 20 MG PO DAILY, (Reported) Digoxin (Digoxin) 125 Mcg Tablet, 125 MCG PO DAILY, (Reported) Dulaglutide (Trulicity) 1.5 Mg/0.5 Ml Pen.injctr, 1.5 MG SC QWEEK, (Reported) [place] Ergocalciferol (Vitamin D2) (Vitamin D2) 50,000 Units Cap, 50,000 UNIT PO QWEEK, (Reported) [place] Ferrous Sulfate (Ferrous Sulfate) 325 Mg Tablet, 325 MG PO WM, (Reported) Fluticasone Propionate (Flovent Hfa) 110 Mcg/Act Aer.w.adap, 1 PUFF INH BID, (Reported) 0800 AND 1600 Folic Acid (Folic Acid) 1 Mg Tab, 2 MG PO BID, (Reported) 0800 AND 1600 Insulin Glargine,Hum.rec.anlog (Lantus Solostar) 100 Unit/1 Ml Insuln.pen, 30 UNIT SC QAM, (Reported) Insulin Glargine,Hum.rec.anlog (Lantus Solostar) 100 Unit/1 Ml Insuln.pen, 40 UNITS SC QHS, (Reported) Insulin Lispro (Humalog Kwikpen U-100) 100 Unit/1 Ml Insuln.pen, 1 DOSE SC AC, (Reported) PER SLIDING SCALE NO INSULIN IS BELOW 131 Levothyroxine Sodium (Levothyroxine Sodium) 50 Mcg Tablet, 50 MCG PO DAILY, (Reported) Lisinopril (Lisinopril) 2.5 Mg Tablet, 1 TAB PO DAILY Magnesium Gluconate (Magnesium Gluconate) 27 Mg Tablet, 500 MG PO BID, (Reported) Metformin HCl (Metformin HCl) 1,000 Mg Tab, 1,000 MG PO BID, (Reported) 0800 AND 1600 Metoprolol Succinate (Metoprolol Succinate) 100 Mg Tab.er.24h, 100 MG PO DAILY, (Reported) Montelukast Sodium (Montelukast Sodium) 10 Mg Tab, 10 MG PO QHS, (Reported) Multivitamins (Thera M Plus Tablet) 1 Each Tablet, 1 TAB PO DAILY, (Reported) Olopatadine HCl (Pataday) 0.2% 2.5ML Drops, 1 DROP OU BID, (Reported) [place]-3 Fatty Acids/Fish Oil (Fish Oil 1,000 mg Capsule) 1 Each Capsule, 1,000 MG PO TID, (Reported) 0800, 1200, AND 1600 Omeprazole (Omeprazole) 40 Mg Capsule.dr, 40 MG PO BID, (Reported) 0800 AND 1600 Ropinirole HCl (Ropinirole HCl) 1 Mg Tab, 1 MG PO BID, (Reported) Spironolactone (Spironolactone) 25 Mg Tablet, 25 MG PO DAILY, (Reported) Torsemide (Torsemide) 20 Mg Tablet, 60 MG PO QPM, (Reported) [Marijuana] CAP, 1 CAP PO Q6H, (Reported) Scheduled PRN Acetaminophen (Tylenol Extra Strength) 500 Mg Tablet, 1,000 MG PO DAILY PRN for HEADACHE, (Reported) Albuterol Sulfate (Ventolin Hfa) 18 Gm Hfa.aer.ad, 2 PUFF INH Q4H PRN for SHORTNESS OF BREATH, (Reported) Betamethasone Dipropionate (Betamethasone Dipropionate) 0.05% Cream..g., 1 APLCT TOP BID PRN for PSORIASIS, (Reported) APPLY TO [place] Ipratropium/Albuterol Sulfate (Iprat-Albut 0.5-3(2.5) mg/3 ml) 3 Ml Ampul.neb, 1 FAZAL INH QID PRN for SOB/WHEEZING, (Reported) Meclizine HCl (Meclizine HCl) 12.5 Mg Tablet, 12.5 MG PO TID PRN for DIZZINESS, (Reported) Nystatin (Nystatin Powder) 15 Gm Powder, 1 APLCT TOP BID PRN for RASH, (Reported) APPLY TO GROIN Allergies Coded Allergies: TAPE (Verified Allergy, Intermediate, rash, 01/14/19) ellies PRIYANKA MIN MD Nov 29, 2019 13:54
== END 2019-11-29 11:40 | DRG 562 ==
LOC: M ED 16:42 → M ED INP 19:21 → ENRESERV 21:52 → M MSPAV 22:49
PROVIDERS: ADMIT Family Medicine; ATTEND Internal Medicine
DX: S93.402A Sprain of unspecified ligament of left ankle, initial encounter (principal); J18.9 Pneumonia, unspecified organism; Z68.45 Body mass index [BMI] 70 or greater, adult; I50.42 Chronic combined systolic (congestive) and diastolic (congestive) heart failure; J96.11 Chronic respiratory failure with hypoxia; I48.20 Chronic atrial fibrillation, unspecified; E66.01 Morbid (severe) obesity due to excess calories; Z74.01 Bed confinement status; E11.9 Type 2 diabetes mellitus without complications; G47.33 Obstructive sleep apnea (adult) (pediatric); J44.9 Chronic obstructive pulmonary disease, unspecified; D63.8 Anemia in other chronic diseases classified elsewhere; I11.0 Hypertensive heart disease with heart failure; E03.9 Hypothyroidism, unspecified; G25.81 Restless legs syndrome; K43.9 Ventral hernia without obstruction or gangrene; Z98.84 Bariatric surgery status; Z79.01 Long term (current) use of anticoagulants; Z79.4 Long term (current) use of insulin; Z79.899 Other long term (current) drug therapy; Z91.048 Other nonmedicinal substance allergy status; M79.89 Other specified soft tissue disorders; W17.89XA Other fall from one level to another, initial encounter; Y92.009 Unspecified place in unspecified non-institutional (private) residence as the place of occurrence of the external cause; Z99.81 Dependence on supplemental oxygen; D50.9 Iron deficiency anemia, unspecified